=== PATIENT | male | born 1945 | race Caucasian/White ===

== ENCOUNTER 2017-01-31 11:36 | Outpatient (CLI) | payer MEDICARE, BC ==
[2017-01-31 12:26] LABS: Anion Gap 11 mmol/L (10-20); BUN (Urea Nitrogen) 9 mg/dL (8.4-25.7); Calc. Creatinine Clearance 0 mL/min (70-130); Calcium 8.9 mg/dL (7.8-10.44); Carbon Dioxide 28 mmol/L (23-31); Chloride 93 mmol/L (98-107); Estimated GFR-MDRD Greater than 90
[2017-01-31] MEDS ORDERED: Iopamidol 370 76% 100 ML VIAL ONE (15:03)
--- NOTE | 2017-01-31 17:42 | CT ---
CT ABDOMEN WITH AND WITHOUT CONTRAST CT PELVIS WITH AND WITHOUT CONTRAST: (CT UROGRAM) 01/31/2017 HISTORY: A 72-year-old male with N40.1, benign prostatic hyperplasia with lower urinary tract symptoms. Z87.440, history of UTI. R31.29, microscopic hematuria. N20.0, renal calculi. COMPARISON: Noncontrast CT of abdomen and pelvis of 06/02/2011. No other cross-section imaging studies of the abdomen and pelvis. TECHNIQUE: No oral contrast given. IV contrast: Isovue. Pre-contrast, 90-second delayed venous phase, and 4-minute delayed excretory/pelvic resting phase, s cans performed through the entire abdomen and pelvis. Coronal reconstructions of the excretory phase scan. FINDINGS: There is an approximately 2 x 1.5 cm heterogeneously enhancing lesion, with pattern consistent with hepatic hemangioma, in hepatic segment 6, which has not changed in size since the prior CT of 2011. In the posteromedial hepatic segment 5, located approximately 2 cm posterior to the intrahepatic por tion of the IVC, there is a much smaller, approximately 1 x 0.5 cm subtle, faint, moderately hypoden se lesion, which is too small to characterize, but is probably another hepatic hemangioma. Otherwise, the rest of the liver is normal. There are multiple small hypodense lesions in the bilat eral upper and midpole renal parenchyma. Most are too small to characterize, less than 1 cm in size each. The largest is approximately 1.5 cm, exophytically protruding from the posterior cortical anderson rface of the right renal upper pole. These are statistically most likely represent multiple small r enal cysts. There are no renal, ureteral, or bladder calculi. Urinary bladder is distended, and hart s normal, thin fam. There are no prostatic calcifications. There is periprostatic fat stranding suggestive of edema. This makes it difficult to measure the prostate gland. The prostate gland barone s not significantly superiorly displace the base of the urinary bladder. Within the tail of the pancreas, there is a low attenuation lesion which is approximately 1 cm in gr eatest transverse dimension x 2.5 cm anteroposterior x 3 cm craniocaudal. It does not appear to enh ance, and its long axis is almost perpendicular to the long axis of the pancreatic tail. This is un changed since 06/02/2011, and therefore does not appear aggressive. Located approximately 3.5-4 cm to the left of this, more distally in the pancreatic tail, there is a tiny 0.8 cm round hypodense le chula, which is not definitely identified on the prior noncontrast CT. Much more proximally, at the pancreatic body and junction between the pancreatic body and head, there are additional small irregu larly shaped cystic-appearing lesions which were also probably present in 2012. No adrenal mass. Unremarkable spleen. No small bowel dilation. No iliac chain or retroperitoneal lymphadenopathy. It is difficult to evaluate the colon because of lack of visceral fat. IMPRESSION: 1. Periprostatic edema, with indistinct margins of the prostate gland. This could either represent a prostatitis, or the patient may be recently status post prostatic biopsy. Recommend correlation w ith history. 2. Several small hypodense lesions in the bilateral upper and midpole parenchyma, too small to defin itively characterize. At least the majority of them are probably cysts. 3. Multiple small cystic lesions in the pancreas. Some are definitely stable since 06/02/2011, whil e others are difficult to visualize on that previous noncontrast CT. 4. No obvious large neoplasm identified involving the kidneys or urinary bladder. 5. Two small enhancing lesions in the right lobe of the liver. One of them is definitely a benign h epatic hemangioma. The other is too small to characterize, but is also favored to be a hemangioma. POS: [facility]
== END 2017-01-31 11:37 | disposition home or self-care (01) ==
LOC: CT 11:36
PROVIDERS: ATTEND Urology
DX: N40.1 Benign prostatic hyperplasia with lower urinary tract symptoms (principal); R31.29 Other microscopic hematuria; N20.0 Calculus of kidney; E22.9 Hyperfunction of pituitary gland, unspecified; N28.9 Disorder of kidney and ureter, unspecified; K86.2 Cyst of pancreas; D18.09 Hemangioma of other sites; Z87.440 Personal history of urinary (tract) infections
CPT/HCPCS: 36415; 74178; 80048

== ENCOUNTER 2018-05-04 13:16 | Emergency (ER) | payer MEDICARE, BC ==
[2018-05-04 14:03] LABS: #Eosinphils 0.1 thou/uL (0.0-0.7); #Lymphocytes 1.3 thou/uL (1.20-3.40); #Monocytes 0.8 thou/uL (0.11-0.59); #Neutrophils 5.8 thou/uL (1.40-6.50); %Eosinophils 0.6 % (0.0-10.0); %Lymphocytes 16.1 % (21.0-51.0); %Monocytes 10.3 % (0.0-10.0); Hemoglobin 13.9 g/dL (14.0-18.0); Mean Corpuscular HGB CONC 32.2 g/dL (32.0-36.0); Mean Corpuscular Hemoglobin 29.2 pg (27.0-31.0); Mean Corpuscular Volume 90.5 fL (78.0-98.0); Mean Platelet Volume 8.1 fL (7.4-10.4); Platelet Count 165 thou/uL (130-400); RBC Distribution Width 13.2 % (11.5-14.5); Red Blood Cell (RBC) Count 4.76 mill/uL (4.70-6.10)
[2018-05-04 14:35] LABS: ALT (SGPT) 14 U/L (8-55); AST (SGOT) 17 U/L (5-34); Albumin 4.1 g/dL (3.4-4.8); Alkaline Phosphatase 89 U/L (40-150); Anion Gap 14 mmol/L (10-20); BUN (Urea Nitrogen) 13 mg/dL (8.4-25.7); Bilirubin, Total 0.6 mg/dL (0.2-1.2); Calc. Creatinine Clearance 0 mL/min (70-130); Calcium 9.7 mg/dL (7.8-10.44); Carbon Dioxide 24 mmol/L (23-31); Chloride 102 mmol/L (98-107); Estimated GFR-MDRD 67; Glucose 123 mg/dL (83-110); Potassium 4.2 mmol/L (3.5-5.1); Protein, Total 7.1 g/dL (5.8-8.1); Sodium 136 mmol/L (136-145)
[2018-05-04 16:19] LABS: Bilirubin Negative (Negative); Blood, Urine Moderate (Negative); Clarity CLEAR (Clear); Glucose, Urine (Dipstick) Negative (Negative); Leukocyte Trace (Negative); Nitrite Negative (Negative); Protein, Urine (Dipstick) Negative (Neg-Trace); pH, Urine 6.5 (5.0-9.0)
[2018-05-04 16:22] LABS: Bacteria/HPF None Seen HPF (None Seen); Hyaline Casts/LPF 0-3 HYALINE CAST LPF (0-3 Hyaline); Pathc Cast-AUWi Flag 0.14 (0-2.49); RBC/HPF 21-50 HPF (0-3); Squamous Epithelial None Seen HPF (0-3); WBC/HPF 0-3 HPF (0-3)
--- NOTE | 2018-05-04 17:54 | CT ---
CT OF THE HEAD WITHOUT CONTRAST 05/04/18 COMPARISON: 12/09/16 HISTORY: Fall, trauma. TECHNIQUE: Axial CT imaging at 5 mm intervals from vertex through skull base without contrast. FINDINGS: The imaged paranasal sinuses/mastoid air cells are well aerated. There is no displaced calvarial frac ture. There is no intracranial hemorrhage, midline shift or mass effect. There is inferior posterior cerebe llar volume loss, stable. There is posterior occipital/parietal encephalomalacia noted bilaterally, s table as well. There is extensive periventricular, deep and subcortical white matter hypodensity, josh dence of stable small vessel disease. IMPRESSION: Chronic findings as described above. No intracranial hemorrhage or displaced calvarial fracture. POS: [facility]
== END 2018-05-04 19:06 | disposition home or self-care (01) ==
LOC: ERS 13:16
DX: R53.81 Other malaise (principal); R29.6 Repeated falls; G40.909 Epilepsy, unspecified, not intractable, without status epilepticus; F41.9 Anxiety disorder, unspecified; Z79.899 Other long term (current) drug therapy
CPT/HCPCS: 36415; 70450; 80053; 81003; 81015; 85025

== ENCOUNTER 2018-05-08 16:24 | Outpatient (CLI) | payer MEDICARE, BC ==
--- NOTE | 2018-05-08 18:13 | RAD ---
AP VIEW PELVIS: INDICATIONS: Fall with pelvic pain. COMPARISON: None. FINDINGS: No acute fracture or subluxation is evident. There is a moderate amount of retained stool within the visualized colon. No overlying bowel gas. Limited evaluation of the sacrum and coccyx. IMPRESSION: No definite displaced fracture demonstrated. POS: [facility]
--- NOTE | 2018-05-08 18:28 | RAD ---
LUMBAR SPINE TWO VIEWS: INDICATIONS: Fall with back pain. COMPARISON: CT abdomen and pelvis dated 01/31/2017. FINDINGS: Overlying bowel gas limits exam detail. There is a moderate wedge compression abnormality suspected involving L2. Mild wedge compression abnormality is suspected involving L1. These are new from the comparison exam. There is diffuse osteopenia. IMPRESSION: 1. Wedge compression abnormalities involving L1 and L2 are new from a comparison examination from 20 17. A bone scan may be helpful to evaluate the chronicity of the findings. 2. Limitation of examination due to overlying bowel gas. POS: [facility]
== END 2018-05-08 16:25 | disposition home or self-care (01) ==
LOC: BICRAD 16:24
PROVIDERS: ATTEND Nurse Practitioner Acute Care
DX: R29.6 Repeated falls (principal)
CPT/HCPCS: 72100; 72170

== ENCOUNTER 2018-10-12 16:38 | Inpatient (IN) | payer MEDICARE, BC ==
[2018-10-12] MEDS ORDERED: Acetaminophen 500 MG TAB ONE ×2 (16:58→16:59)
[2018-10-12 17:13] LABS: #Basophils 0.1 thou/uL (0.0-0.2); #Lymphocytes 0.8 thou/uL (1.20-3.40); #Monocytes 0.7 thou/uL (0.11-0.59); #Neutrophils 4.6 thou/uL (1.40-6.50); %Basophils 1.6 % (0.0-1.0); %Eosinophils 0.3 % (0.0-10.0); %Lymphocytes 13.1 % (21.0-51.0); %Monocytes 10.9 % (0.0-10.0); %Neutrophils 74.2 % (42.0-75.0); Hemoglobin 14.2 g/dL (14.0-18.0); Mean Corpuscular HGB CONC 32.9 g/dL (32.0-36.0); Mean Corpuscular Hemoglobin 29.1 pg (27.0-31.0); Mean Corpuscular Volume 88.5 fL (78.0-98.0); Platelet Count 184 thou/uL (130-400); RBC Distribution Width 13.2 % (11.5-14.5); Red Blood Cell (RBC) Count 4.87 mill/uL (4.70-6.10); White Blood Cell (WBC) Count 6.2 thou/uL (4.8-10.8)
--- NOTE | 2018-10-12 17:23 | CT ---
Exam: Head CT without contrast HISTORY: Multiple falls. Weakness. Previous strokes. Bilateral lower extremity weakness, starting thi s morning. COMPARISON: 05/04/2018 FINDINGS: Hemorrhage: No intraparenchymal hemorrhage or extra-axial hematoma. Brain parenchyma: Stable malacic and gliotic changes in the posterior midline left and right cerebral lobes. Otherwise, cortical tam-white matter differentiation is preserved. No mass effect or midline shift. Basilar cisterns are patent.Stable white matter hypodensities due to chronic small ves dwayne ischemic change Ventricular system: Ventricles and sulci are patent and symmetric. Calvarium: Intact. Sinuses and mastoid air cells: Adequate aeration. IMPRESSION: No acute intracranial process.
[2018-10-12 17:35] LABS: ALT (SGPT) 14 U/L (8-55); AST (SGOT) 18 U/L (5-34); Albumin 4.2 g/dL (3.4-4.8); Alkaline Phosphatase 85 U/L (40-150); Anion Gap 13 mmol/L (10-20); BUN (Urea Nitrogen) 12 mg/dL (8.4-25.7); Bilirubin, Total 0.4 mg/dL (0.2-1.2); CK (CPK) 94 U/L (30-200); Calc. Creatinine Clearance 0 mL/min (70-130); Calcium 9.4 mg/dL (7.8-10.44); Carbon Dioxide 27 mmol/L (23-31); Chloride 100 mmol/L (98-107); Estimated GFR-MDRD 59; Globulin 2.7 g/dL (2.4-3.5); Glucose 98 mg/dL (83-110); Potassium 4.6 mmol/L (3.5-5.1); Protein, Total 6.9 g/dL (5.8-8.1); Sodium 135 mmol/L (136-145)
--- NOTE | 2018-10-12 17:38 | RAD ---
Exam: Chest one view HISTORY:Sepsis. Multiple falls. Comparison: 12/09/2016 FINDINGS: Cardiac silhouette:Mildly enlarged. Pulmonary vessels: Upper normal Costophrenic angles: Clear LUNGS: Hyperinflation. Chronic changes. Pneumothorax: None Osseous abnormalities: None IMPRESSION: 1. Upper normal pulmonary vasculature. 2. Hyperinflation. Chronic changes.
[2018-10-12 17:58] LABS: Bilirubin Negative (Negative); Blood, Urine Trace (Negative); Clarity Clear (Clear); Glucose, Urine (Dipstick) Normal (Negative); Leukocyte Negative Leu/uL (Negative); Nitrite Negative (Negative); Protein, Urine (Dipstick) Negative (Neg-Trace); Urobilinogen 3 mg/dL (Less than 2); WBC/HPF 0-3 HPF (0-3)
[2018-10-12 17:59] LABS: Bacteria/HPF None Seen HPF (None Seen); Squamous Epithelial 0-3 HPF (0-3)
--- NOTE | 2018-10-12 18:52 | PDOC.FPRHP ---
- History of Present Illness Chief Complaint: Falls History of Present Illness: Mr. Robbins is a pleasant 73yo CM with h/o of hemorrhagic stroke x3 who presents for increase in generalized weakness and falls x4. History is obtained from patient as well as patient's at bedside. reports that patient was at his baseline until eariler today about 1100 when his legs began to shake and he complained of weakness. He then fell from standing to the floor, without head trauma. He was able to be helped up to his walker. He did not experience any LOC, post-ictal state, loss of bladder or bowel control, or focal neurologic deficits after the fall. He does endorse a dull lower back pain since the fall, relieved with Tylenol. He does endorse a 2 day history of cough, congestion, and mild cold-like symptoms. has been experiencing similar illness. He denies any CP, SOB, abdominal pain, n/v, diarrhea. Prior to this episode, his last fall was in April with similar sxs. He also has experienced a UTI about 2 years ago with hospitalization and associated delerium. states that any time he gets a fever or acute illness he becomes acutely weaker until resolution of illness. ED Course: In the ED, he was given 2L NS bolus and 1g Tylenol with improvement of vitals and clinical status. We were then called for further management and admission. - Allergies/Adverse Reactions Allergies Allergy/AdvReac Type Severity Reaction Status Date / Time No Known Allergies Allergy Verified 10/01/15 02:49 - Home Medications Medication Instructions Recorded Confirmed Type Atorvastatin Calcium [Lipitor] 40 mg PO HS #0 tab 10/15/15 10/12/18 Rx Docusate Sodium 100 mg PO DAILY 12/09/16 10/12/18 History Tamsulosin HCl [Flomax] 0.4 mg PO DAILY #30 cap 12/12/16 10/12/18 Rx levETIRAcetam [Keppra] 1,000 mg PO BID #60 tab 12/12/16 10/12/18 Rx Metoprolol Succinate 50 mg PO DAILY 10/13/18 10/13/18 History Potassium Chloride [Klor-Con M10] 10 meq PO BID-WM 10/13/18 10/13/18 History Sertraline HCl 50 mg PO DAILY 10/13/18 10/13/18 History - History PMHx:Skin cancer with excision, OA, h/o of CVA x3 with residual gait disturbances and vision loss, epilepsy PSHx: none FHx: NC Social: Lives at home with family. No EtOH, tob, or illicit drug use. - Review of Systems General: reports: fever/chills. denies: night sweats, fatigue Eyes: reports: vision changes (chronic vision loss 2/2 CVA's), other (baseline decreased vision) ENT: reports: nasal congestion, rhinorrhea Respiratory: reports: cough, congestion. denies: shortness of breath Cardiovascular: denies: chest pain, palpitation, edema Gastrointestinal: reports: constipation (chronic). denies: nausea, vomiting, diarrhea Genitourinary: reports: polyuria (chronic). denies: incontinence, dysuria Skin: denies: rashes, lesions Musculoskeletal: reports: pain (lower back) Neurological: denies: syncope, seizure - Vital signs BP: 103/63 HR: 104 RR: 18 Tmax: 98.3 Pox: 98% on RA Wt: [68] - Physical Exam Constitutional: NAD, awake, alert and oriented, well developed HEENT: normocephalic and atraumatic, PERRLA, EOMI, conjunctiva clear, MMM, other (grossly decreased vision) Neck: supple, FROM, trachea midline Heart: RRR, normal S1/S2, no murmurs/rubs/gallops, pulses present, no edema Lungs: CTAB, good air movement, no rales/rhonchi, no wheezing Abdomen: soft, non-tender, bowel sounds present, no masses/distention Musculoskeletal: normal structure, normal tone, ROM grossly normal, other (5/5 strength throughout) Neurological: no focal deficit, CN II-XII intact, normal sensation, other (no dysdiadokinesia, [id number] normal, [id number] unable to preform due to vision loss.) Skin: no rash/lesions Heme/Lymphatic: no unusual bruising or bleeding Psychiatric: normal mood and affect, good judgment and insight, intact recent and remote memory FMR H&P: Results - Labs Result Diagrams: 10/14/18 05:58 10/14/18 05:58 Lab results: WBC 6.2 thou/uL (4.8-10.8) 10/12/18 16:55 Hgb 14.2 g/dL (14.0-18.0) 10/12/18 16:55 Hct 43.1 % (42.0-52.0) 10/12/18 16:55 MCV 88.5 fL (78.0-98.0) 10/12/18 16:55 Plt Count 184 thou/uL (130-400) 10/12/18 16:55 Neutrophils % 74.2 % (42.0-75.0) 10/12/18 16:55 Sodium 135 mmol/L (136-145) L 10/12/18 16:55 Potassium 4.6 mmol/L (3.5-5.1) 10/12/18 16:55 Chloride 100 mmol/L (98-107) 10/12/18 16:55 Carbon Dioxide 27 mmol/L (23-31) 10/12/18 16:55 BUN 12 mg/dL (8.4-25.7) 10/12/18 16:55 Creatinine 1.20 mg/dL (0.7-1.3) 10/12/18 16:55 Glucose 98 mg/dL (83-110) 10/12/18 16:55 Lactic Acid 1.5 mmol/L (0.5-2.2) 10/12/18 16:55 Calcium 9.4 mg/dL (7.8-10.44) 10/12/18 16:55 Total Bilirubin 0.4 mg/dL (0.2-1.2) 10/12/18 16:55 AST 18 U/L (5-34) 10/12/18 16:55 ALT 14 U/L (8-55) 10/12/18 16:55 Alkaline Phosphatase 85 U/L (40-150) 10/12/18 16:55 Creatine Kinase 94 U/L (30-200) 10/12/18 16:55 B-Natriuretic Peptide 310.1 pg/mL (0-100) H 10/12/18 16:55 Serum Total Protein 6.9 g/dL (5.8-8.1) 10/12/18 16:55 Albumin 4.2 g/dL (3.4-4.8) 10/12/18 16:55 Urine Ketones Negative mg/dL (Negative) 10/12/18 17:45 Urine Blood Trace (Negative) A 10/12/18 17:45 Urine Nitrite Negative (Negative) 10/12/18 17:45 Ur Leukocyte Esterase Negative Johnathan/uL (Negative) 10/12/18 17:45 Urine RBC 7-10 HPF (0-3) A 10/12/18 17:45 Urine WBC 0-3 HPF (0-3) 10/12/18 17:45 Ur Squamous Epith Cells 0-3 HPF (0-3) 10/12/18 17:45 Urine Bacteria None Seen HPF (None Seen) 10/12/18 17:45 - EKG Interpretation EKG: Sinus tachy, no ST or T wave changes, normal axis. - Radiology Interpretation Chest x-ray Status: image reviewed by me, report reviewed by me (No acute cardiopulmonary process. Mild hyperinflation. Increased pulmonary vascular markings.) CT scan - head Status: report reviewed by me (No acute intracranial process.) FMR H&P: A/P - Problem List (1) Falls Current Visit: Yes Status: Acute Code(s): W19.XXXA - UNSPECIFIED FALL, INITIAL ENCOUNTER (2) Generalized weakness Current Visit: Yes Status: Acute Code(s): R53.1 - WEAKNESS (3) Acute upper respiratory infection Current Visit: Yes Status: Acute Code(s): J06.9 - ACUTE UPPER RESPIRATORY INFECTION, UNSPECIFIED (4) Seizure disorder Current Visit: No Status: Chronic Code(s): G40.909 - EPILEPSY, UNSP, NOT INTRACTABLE, WITHOUT STATUS EPILEPTICUS (5) History of cerebrovascular accident Current Visit: No Status: Chronic Code(s): Z86.73 - PRSNL HX OF TIA (TIA), AND CEREB INFRC W/O RESID DEFICITS - Plan Mr. Robbins is a 73 yo WM with h/o hemorrhagic CVA x3 who presents for increased generalized weakness and falls x4 over 1 day duration. 1. Falls 2/2 generalized weakness - suspected dehydration vs URI - Head CT WNL, CXR WNL - Tmax of 99.8 in ED, s/p 2L NS with normalization of BP. - BMP, CBC, and Lactic acid WNL; will check Mg and Phos - Will order TSH and Vit D - U/A clean, ED UCx Pending - PT/OT consulted, appreciate recs 2. URI - sxs of 2 day duration, afebrile in ED, UA clean, no acute s/s of other infection. Vitals stable. - BCx Pending - Will check Procalcitonin and viral respiratory panel - Will monitor for s/s of infection 3. H/O CVA - CT normal, no acute neurologic findings, Neuro exam unremarkable - Will place on fall precautions and bed assist, and will monitor neurologic status 4. H/O seizures - Will continue home Keppra. Will check Keppra level. - No history consistent with recent seizure. Will continue to monitor. VTE: SCDs Diet: Regular Code: Full - discussed with patient and at bedside Disposition/LOS: Pending workup and clinical improvement. Anticipate observation status with hospitalization <48 hours. FMR H&P: Upper Level - Pertinent history 73 y/o M PMHx CVA, epilepsy, brain bleeds presents because around 11am this morning he started falling. His was concerned because he seemed to be out of focus and didn't have control of his hands and feet. He was alert the whole time. He fell 4 times today and it was as though his legs gave out. He did not trip. Did not hit his head. His brought him in and he was found to have a temp of 99.7. His has had a cold and now he has a cold. He has had a dry cough, sneezing, rhinorrhea for the past 2-3 days. denies noticing any focal weakness, slurred speech, chest pain, SOB. His back hurts because he fell a couple of times today. During the falls his put chairs under him to catch him. Denies LOC. He walks with a walker at baseline. He cannot see well at baseline as a result of a stroke. - Pertinent findings Vitals: BP 103/63, HR 90, RR 20, O2 97% on RA, Temp 99.7 PE: Gen - alert, oriented x3, NAD HEENT - mildy dry mucous membranes, clear nasal discharge, EOMI, no scleral icterus CV - RRR, no murmurs Resp - CTAB, no wheezes Abd - soft, NTTP Neuro - AOx3, CN II-XII intact, 5/5 strength in all 4 extremities, sensation grossly intact, cerebellum intact with no dysdiadochokinesia, heel to ott intact, sharp, rigid movements Labs: WBC 6.2, Hb 14.3, BUN 12, Cr 1.2, GFR 59, Lactic Acid 1.5, BNP 310, Trop < 0.010, Flu negative, Urinalysis - Trace blood CXR: chronic hyperinflation, no acute process CT head: no acute process - Plan Date/Time: 10/12/18 2626 I, Jimena Ashford MD, PGY-3, have evaluated this patient and agree with findings/ plan as outlined by international sales manager resident. Pertinent changes/additions are listed here. 1. Generalized Weakness Pt presented after 4 falls today due to generalized weakness. CT brain normal. He has been suffering from a viral URI and was found to have a temp of 100.0. At the time of our exam he was at his baseline strength. Head CT negative. WBC count normal, Lactic acid and trop normal. Flu negative. Unknown cause, but suspect due to mild dehydration and viral URI. -Obs on medical -PT/OT consult -Check Mag, Phos -Check procalcitonin -Check Viral Resp panel -f/u on blood cultures, but will not start abx as suspect viral source. If procalcitonin comes back elevated then will re-consider abx 2. Mild Dehydration Pt initially was mildly hypotensive and tachycardic with dry mucous membranes. s/p 2L NS and his vital signs have improved. -LR @ 100 -Encourage PO intake 3. h/o CVA Do not suspect CVA at this time as brain CT negative and no new focal deficits. It pt status deteriorates then will consider Head MRI -Will restart home atorvastatin 4. Epilepsy Do not suspect seizure -Check keppra level -Restart home keppra Dispo: Obs on medical Code Status: Full VTE ppx: SCD's Addendum - Attending - Attending Attestation Date/Time: 10/14/18 2025 I personally evaluated the patient and discussed the management with Dr. Josee Whitt on 10/12/2018 I agree with the History, Examination, Assessment and Plan documented above with any addition or exceptions noted below- 73yo CM with h/o of hemorrhagic stroke x3, OA, seizure d/o secondary to CVA who presents with generalized weakness and falls x4. History is obtained from patient as well as patient's at bedside. reports that patient was at his baseline until earlier today when his legs began to shake and he complained of weakness. He then fell from standing to the floor. Did not hit his head or have LOC. He was able to be helped up to his walker. Denied any loss of bladder or bowel control, or focal neurologic deficits after the fall. He does endorse a dull lower back pain since the fall, relieved with Tylenol. He does endorse a 2 day history of cough, congestion, and mild cold-like symptoms. has been experiencing similar illness. He denies any CP, SOB, abdominal pain, n/v, diarrhea. PMH/PSH/ Meds/All reviewed and agree with resident's documentation. Afebrile VSS Exam repeated by me and agree with resident's findings. Labs: WBC=6.2, H/H=14.2/43.1 , Iam=054, Ss=559, K=4.6, Me=686, CO2=27, BUN/Cr=12/1.2, Gluc=98, AST/ALT=18/14 , Lactic acid=1.5, Trop<0.010 A/P: 1) Generalized weakness with falls- possibly secondary to mild dehydration- pt reports feeling better since receiving IVF. Continue to monitor. Plan to ambulate in AM with PT for further evaluation. Will check TSH, procalcitonin. 2) Mild dehydration- continue IVF
[2018-10-12] MEDS ORDERED: HYDROcodone/Acetaminophen 5/325 mg Tablet PO PRN ×2 (19:47)
[2018-10-12] MEDS ORDERED: Sodium Chloride 0.9% 1,000 ML IV SCH (19:47)
[2018-10-12] MEDS ORDERED: Acetaminophen 325 MG TAB PO PRN (19:47)
[2018-10-12] MEDS ORDERED: Ondansetron ODT 4 MG TAB SL PRN (19:47)
[2018-10-12] MEDS ORDERED: Ondansetron PF 4 MG/2 ML Vial IVP PRN (19:47)
[2018-10-12 20:50] LABS: Magnesium 1.7 mg/dL (1.6-2.6)
[2018-10-12 21:11] LABS: Thyroid Stimulating Hormone 1.9366 uIU/mL (0.35-4.94)
[2018-10-12] MEDS: Lactated Ringer's 1,000 ML IV SCH (21:12)
[2018-10-12 21:34] LABS: Troponin I Less than 0.010 ng/mL (< 0.028)
[2018-10-12] MEDS ORDERED: Prevnar 13-Val Conj/PF 0.5 ML SYRINGE IM ONE (22:00)
[2018-10-13 00:11] LABS: Troponin I Less than 0.010 ng/mL (< 0.028)
[2018-10-13 01:24] VITALS: BMI 22.9
--- NOTE | 2018-10-13 05:01 | PDOC.EVN ---
Event Note - Event Note Event Note: Paged patient had HR spikes from 80s to 140s with irregular rhythm. Hemodynamically stable with bp 110s/60s. Ordered state 12-lead EKG which demonstrated Afib. Pt had no complaints, CP or SOB. BP 117/68, HR 90s. Patient was then transferred to tele floor. Trop, BMP, Mg, Phos, and D-dimer were ordered. Pt has no known previous history of Afib. Will monitor patient on tele floor and provide further management.
[2018-10-13 06:03] LABS: Anion Gap 8 mmol/L (10-20); BUN (Urea Nitrogen) 10 mg/dL (8.4-25.7); Calc. Creatinine Clearance 76 mL/min (70-130); Calcium 8.5 mg/dL (7.8-10.44); Carbon Dioxide 29 mmol/L (23-31); Chloride 105 mmol/L (98-107); Estimated GFR-MDRD Greater than 90; Glucose 92 mg/dL (83-110); Magnesium 1.8 mg/dL (1.6-2.6); Phosphorus 2.4 mg/dL (2.3-4.7); Potassium 4.1 mmol/L (3.5-5.1); Sodium 138 mmol/L (136-145)
[2018-10-13] MEDS: Lactated Ringer's 1,000 ML IV SCH ×3 (06:24→16:42)
--- NOTE | 2018-10-13 07:00 | PDOC.FM ---
- Subjective Subjective: Mr. Robbins had no complaints during the interview. He denied symptoms when he converted into A-fib. He states he has recent falls. Unable to tease out if falls are due to weakness or poor field of vision. He denied LOC, incontinence with falls. He has been experiencing upper respiratory symptoms for 3 days and states his has similar symptoms. He denied fever, chills, SOB, chest pain, LE edema, abdominal pain, diarrhea, urinary symptoms. 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 He continues with falls and this does not distress her as needing assistance with care. - Objective Vital Signs & Weight: Vital Signs (12 hours) Temp Pulse Resp BP Pulse Ox 10/13/18 06:25 99 10/13/18 05:31 98.3 F 104 H 20 141/82 H 99 10/13/18 04:00 97.8 F 101 H 18 108/74 96 10/13/18 00:12 98.4 F 89 16 112/75 96 10/12/18 20:12 98.6 F 94 16 136/76 96 Weight Weight 68.674 kg I&O: 10/11/18 10/12/18 10/13/18 06:59 06:59 06:59 Intake Total 0 Output Total 150 Balance -150 Result Diagrams: 10/12/18 16:55 10/13/18 05:37 Phys Exam - Physical Examination Constitutional: NAD HEENT: PERRLA, moist MMs Neck: no nodes, no JVD Respiratory: no wheezing, no rales, no rhonchi, clear to auscultation bilateral Cardiovascular: no significant murmur, irregular Gastrointestinal: soft, non-tender, no distention Musculoskeletal: no edema, pulses present Neurological: non-focal, normal sensation, moves all 4 limbs Normal CN III-XII; II not intact in most kumari Psychiatric: A&O x 3 Skin: no rash Dx/Plan (1) Atrial fibrillation Code(s): I48.91 - UNSPECIFIED ATRIAL FIBRILLATION Status: Acute (2) Acute upper respiratory infection Code(s): J06.9 - ACUTE UPPER RESPIRATORY INFECTION, UNSPECIFIED Status: Acute (3) Falls Code(s): W19.XXXA - UNSPECIFIED FALL, INITIAL ENCOUNTER Status: Acute (4) Generalized weakness Code(s): R53.1 - WEAKNESS Status: Acute (5) Intracranial hemorrhage Code(s): I62.9 - NONTRAUMATIC INTRACRANIAL HEMORRHAGE, UNSPECIFIED Status: Acute (6) BPH (benign prostatic hyperplasia) Code(s): N40.0 - BENIGN PROSTATIC HYPERPLASIA WITHOUT LOWER URINRY TRACT SYMP Status: Acute (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 Hx of 3 hemorrhagic strokes so will not anticoag at this time. TSH WNL, Electrolytes WNL - cont carvedilol 12.5 mg bid - consider dilt drip if rate increases - consult cards; appreciate rec's - echo pending - unable to anticoag due to hx of cerebrovascular hemorrhage. Last hemorrhage 4 yrs ago. He is unsure the etiology of hemorrhage. Neurologist was Dr. Hernandez. # Falls 2/2 generalized weakness - suspected dehydration vs URI vs arrhythmia vs neurogenic vs visual field defect - Head CT WNL, CXR WNL - BMP, CBC, TSH, Mg, Phosph and Lactic acid WNL - U/A clean - PT/OT consulted, appreciate recs - Palliative consulted, Case management consulted, appreciate recs - further educate pt and on home safety/well-being and if further intervention is needed for proper home care with recent falls # Vit D Def - Vit D 11.3; continue Vit D3 2. URI - sxs of 2 day duration, afebrile in ED, UA clean, no acute s/s of other infection. Vitals stable. - BCx Pending - Procal WNL;neg influenza; pending viral respiratory panel - Will monitor for s/s of infection 3. H/O CVA - CT normal, no acute neurologic findings, Neuro exam unremarkable - Will place on fall precautions and bed assist, and will monitor neurologic status 4. H/O lifelong seizures - Will continue home Keppra. Will check Keppra level. - No history consistent with recent seizure. Will continue to monitor. VTE: SCDs Diet: Regular Code: Full - discussed with patient and at bedside Disposition/LOS: Pending workup and clinical improvement. Anticipate observation status with hospitalization <48 hours.
[2018-10-13] MEDS ORDERED: Carvedilol 25 MG TAB PO SCH (08:00)
[2018-10-13] MEDS: levETIRAcetam 500 MG TAB PO SCH ×2 (08:41→21:00)
[2018-10-13] MEDS: Tamsulosin HCl 0.4 MG CAP PO SCH (08:42)
[2018-10-13] MEDS: Docusate 100 MG CAP PO SCH (08:42)
--- NOTE | 2018-10-13 11:12 | PRG ---
DATE OF SERVICE: 10/13/2018 SUBJECTIVE: Mr. Robbins is a 73-year-old man, who was admitted yesterday after sustaining multiple falls at home. In the meantime, he has developed new onset atrial fibrillation initially with rapid ventricular response. He was placed on Coreg and it has now slowed his rate into the 90s to 100s. We have consulted Cardiology. We have ordered an echocardiogram. I am also very concerned about Mr. Robbins's home conditions. He has a very loving and caring , but she must care for him herself. He has sustained multiple falls in the last several months while at home. He has had previous strokes in the past and is legally blind. I have asked that we have case management discussed with possibility of at least assisted living. We will also get Physical Therapy involved. Job ID: [id number]
--- NOTE | 2018-10-13 12:38 | CON ---
DATE OF CONSULTATION: HISTORY OF PRESENT ILLNESS: The patient is a 73-year-old gentleman with a history of cerebrovascular accident, who presents with a rapid irregular heart rhythm. The patient has suffered 3 cerebrovascular accidents, each have apparently been hemorrhagic. The patient also has a history of seizure disorder and multiple falls. The patient was in his usual state of health when he started developing fevers and chills. He started feeling extremely weak. He presented once again to the emergency room. He was noted to be in a rapid irregular heart rhythm. The patient denied having any chest pain or dyspnea. PAST MEDICAL HISTORY: Significant for, 1. Cerebrovascular accident. 2. Hypertension. 3. Seizure disorder. 4. Skin carcinoma. PAST SURGICAL HISTORY: He has had surgery for skin cancer. FAMILY HISTORY: Positive family history of coronary artery disease. SOCIAL HISTORY: Nonsmoker. ALLERGIES: NO KNOWN DRUG ALLERGIES. MEDICATIONS: Include, 1. Sertraline 50 daily. 2. KCl 10 daily. 3. Metoprolol 50 XL daily. 4. Colace 100 daily. 5. Lipitor 40 at bedtime. 6. Keppra 1000 b.i.d. 7. Flomax 0.4 daily. REVIEW OF SYSTEMS: Ten-point system otherwise unremarkable. PHYSICAL EXAMINATION: GENERAL: This is a thin gentleman, in no acute distress. VITAL SIGNS: Blood pressure 128/83. NECK: No jugular venous distension. LUNGS: Clear to auscultation. HEART: Irregular rate and rhythm. Normal S1 and S2. ABDOMEN: Nondistended. EXTREMITIES: Show no edema. VASCULAR: Radial pulses are 2+. LABORATORY DATA: White blood cell count 6.4, hemoglobin 14.2, hematocrit 43.1, platelets 184. Sodium 138, potassium 4.1, chloride 105, bicarbonate 29, BUN 10, and creatinine 0.82. Troponin less than 0.01. IMAGING STUDIES: His EKG revealed atrial fibrillation, otherwise normal ECG. IMPRESSION: 1. New onset atrial fibrillation. 2. History of hemorrhagic cerebrovascular accident. 3. History of multiple falls. 4. Seizure disorder. This gentleman presents with new onset atrial fibrillation. He is asymptomatic. His heart rate is elevated. We will start with the history of multiple falls. We will add digoxin to try to control the patient's heart rate. We will check the patient's echocardiogram and follow this patient with you through his hospitalization. Job ID: [id number]
[2018-10-13] MEDS: Digoxin 0.5 MG/2 ML AMP SLOW IVP SCH ×2 (12:57→14:52)
[2018-10-13] MEDS ORDERED: Digoxin 0.25 MG TAB PO SCH (16:00)
[2018-10-13] MEDS ORDERED: Diltiazem 125 MG in Sodium Chloride 0.9% 100 ML IVPB SCH (16:30)
[2018-10-13] MEDS: Diltiazem HCl 125 MG, Admixture Fee 1 EACH in Sodium Chloride 0.9% 100 ML IVPB SCH (17:01)
[2018-10-13] MEDS: Acetaminophen 325 MG TAB PO PRN (21:00)
[2018-10-13] MEDS: Atorvastatin Calcium 40 MG TAB PO SCH (21:00)
--- NOTE | 2018-10-14 05:46 | PDOC.FM ---
- Subjective Subjective: Mr. Robbins is doing well today. He denies fever, chills, SOB, chest pain, palpitations, LE edema, lightheadedness. He endorsed cough and rhinorrhea. Overnight, tele stated he became rate controlled after adminstration of dilt drip at 10 mls/hr. - Objective Vital Signs & Weight: Vital Signs (12 hours) Temp Pulse Resp BP Pulse Ox 10/14/18 04:10 98.8 F 72 20 138/66 92 L 10/14/18 00:00 98.8 F 92 18 106/59 L 10/13/18 20:00 95 Weight Weight 68.674 kg I&O: 10/12/18 10/13/18 10/14/18 06:59 06:59 06:59 Intake Total 0 1070 Output Total 150 1675 Balance -150 -605 Result Diagrams: 10/12/18 16:55 10/13/18 05:37 Radiology: Echo: EF 60-65%, mild Left and Right Atrial Dilation, mild mitral/tricuspid regurg Phys Exam - Physical Examination Constitutional: NAD HEENT: PERRLA, moist MMs, oral pharynx no lesions white sclera, no injected conjunctiva Neck: no JVD, full ROM Respiratory: no wheezing, no rales, no rhonchi, clear to auscultation bilateral Cardiovascular: no significant murmur, irregular Gastrointestinal: soft, no distention, positive bowel sounds Musculoskeletal: no edema, pulses present Psychiatric: A&O x 3 Dx/Plan (1) Atrial fibrillation Code(s): I48.91 - UNSPECIFIED ATRIAL FIBRILLATION Status: Acute (2) Acute upper respiratory infection Code(s): J06.9 - ACUTE UPPER RESPIRATORY INFECTION, UNSPECIFIED Status: Acute (3) Falls Code(s): W19.XXXA - UNSPECIFIED FALL, INITIAL ENCOUNTER Status: Acute (4) Generalized weakness Code(s): R53.1 - WEAKNESS Status: Acute (5) Intracranial hemorrhage Code(s): I62.9 - NONTRAUMATIC INTRACRANIAL HEMORRHAGE, UNSPECIFIED Status: Acute (6) BPH (benign prostatic hyperplasia) Code(s): N40.0 - BENIGN PROSTATIC HYPERPLASIA WITHOUT LOWER URINRY TRACT SYMP Status: Acute (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 Hx of 3 hemorrhagic strokes so will not anticoag at this time. TSH WNL, Electrolytes WNL. Echo revealed EF 60-65%. Dilt drip 10 mls/hr converted to normal rate with continue a-fib. Blood pressure stable. - consult cards - D/C coreg, started digoxin and metoprolol; remained w/o rate control so placed on dilt drip; appreciate rec's - Consider converting to PO dilt drip - unable to anticoag due to hx of cerebrovascular hemorrhage. Last hemorrhage 4 yrs ago. He is unsure the etiology of hemorrhage. Neurologist was Dr. Hernandez. # Falls 2/2 generalized weakness Suspected dehydration vs URI vs arrhythmia vs neurogenic vs visual field defect Head CT WNL, CXR WNL, BMP, CBC, TSH, Mg, Phosph, Lactic acid WNL, U/A clean - PT/OT consulted, appreciate recs - Palliative consulted, Case management consulted, appreciate recs - at the time pt and feel need for HH upon discharge # Vit D Def Pt is high risk for fall fracture. This could be detrimental to pt's health if he were to sustain a fracture or brain bleed. - Vit D 11.3; continue Vit D3 2. URI Symptoms of 2 day duration, afebrile in ED, UA clean, no acute s/s of other infection. Vitals stable. BCx neg. Influenza/Resp Panel neg. Procal WNL - Will monitor 3. H/O CVA CT normal, no acute neurologic findings, Neuro exam unremarkable - Will place on fall precautions and bed assist, and will monitor neurologic status 4. H/O lifelong seizures Will continue home Keppra. Keppra levels WNL - No history consistent with recent seizure. Will continue to monitor. VTE: SCDs Diet: Regular Code: Full - discussed with patient and at bedside Disposition/LOS: New onset a-fib requiring dilt drip will prolong stay; waiting on cards recommendation and approval HH as outpt
[2018-10-14] MEDS: Diltiazem HCl 125 MG, Admixture Fee 1 EACH in Sodium Chloride 0.9% 100 ML IVPB SCH (06:03)
[2018-10-14 07:01] LABS: Anion Gap 9 mmol/L (10-20); BUN (Urea Nitrogen) 8 mg/dL (8.4-25.7); Calc. Creatinine Clearance 79 mL/min (70-130); Calcium 9.1 mg/dL (7.8-10.44); Carbon Dioxide 28 mmol/L (23-31); Chloride 103 mmol/L (98-107); Estimated GFR-MDRD Greater than 90; Glucose 95 mg/dL (83-110); Sodium 136 mmol/L (136-145)
[2018-10-14 07:38] LABS: Band 7 % (5-11); Eosinophils 2 % (0-10); Lymphocytes 29 % (21-51); MDiff Complete? YES; Mean Corpuscular HGB CONC 32.4 g/dL (32.0-36.0); Mean Corpuscular Hemoglobin 28.8 pg (27.0-31.0); Mean Corpuscular Volume 88.9 fL (78.0-98.0); Mean Platelet Volume 8.6 fL (7.4-10.4); Monocytes 9 % (0-10); Neutrophil 53 % (42-75); Platelet Count 141 thou/uL (130-400); Platelet Morphology Comment Appears Decreased; RBC Distribution Width 13.2 % (11.5-14.5)
[2018-10-14] MEDS: levETIRAcetam 500 MG TAB PO SCH ×2 (09:08→21:51)
[2018-10-14] MEDS: Tamsulosin HCl 0.4 MG CAP PO SCH (09:08)
[2018-10-14] MEDS: Digoxin 0.25 MG TAB PO SCH (09:08)
[2018-10-14] MEDS: Docusate 100 MG CAP PO SCH (09:08)
--- NOTE | 2018-10-14 11:34 | PRG ---
DATE OF SERVICE: 10/14/2018 Mr. Robbins is looking and feeling well this morning. He is still on a diltiazem drip for his atrial fibrillation. He was seen in consultation by the Cardiology Service and we appreciate their input. They have recommended switching him to metoprolol and consider using digoxin. In the event, he remains on his diltiazem drip and we will continue to monitor him. At this time, he and his do not desire anything beyond home health care. Job ID: [id number]
--- NOTE | 2018-10-14 20:40 | EKG ---
Test Reason : Blood Pressure : / mmHG Vent. Rate : 122 BPM Atrial Rate : 122 BPM P-R Int : 000 ms QRS Dur : 136 ms QT Int : 220 ms P-R-T Axes : 063 -12 013 degrees QTc Int : 314 ms Sinus tachycardia Non-specific intra-ventricular conduction block No STEMI Abnormal ECG Confirmed by PETER CAVANAUGH, ARAMIS Lea ([id number]), graphic editor KEYLA JIMENEZ ([id number]) on 10/14/2018 8:40:36 PM Referred By: Confirmed By:ARAMIS GREEN MD
[2018-10-14] MEDS: Acetaminophen 325 MG TAB PO PRN (21:51)
[2018-10-14] MEDS: Atorvastatin Calcium 40 MG TAB PO SCH (21:54)
--- NOTE | 2018-10-15 06:17 | PDOC.FM ---
- Subjective Subjective: Mr. Robbins has no complaints today. He states he has been feeling cold and is unsure if it is chills. He had a temp of 99.8 overnight. He remains with intermittent cough. - Objective Vital Signs & Weight: Vital Signs (12 hours) Temp Pulse Resp BP Pulse Ox 10/15/18 04:15 98.3 F 86 13 125/70 94 L 10/14/18 21:45 99.8 F H 69 18 109/63 94 L Weight Weight 68.719 kg I&O: 10/13/18 10/14/18 10/15/18 06:59 06:59 06:59 Intake Total 0 1165.0 1230 Output Total 150 2075 1225 Balance -150 -910.0 5 Result Diagrams: 10/15/18 06:01 10/15/18 06:01 Phys Exam - Physical Examination Constitutional: NAD HEENT: PERRLA, moist MMs Neck: no JVD Respiratory: no wheezing, no rales, no rhonchi, clear to auscultation bilateral Cardiovascular: no significant murmur, irregular Gastrointestinal: soft, non-tender, positive bowel sounds Musculoskeletal: no edema, pulses present Psychiatric: A&O x 3 Dx/Plan (1) Atrial fibrillation Code(s): I48.91 - UNSPECIFIED ATRIAL FIBRILLATION Status: Acute (2) Acute upper respiratory infection Code(s): J06.9 - ACUTE UPPER RESPIRATORY INFECTION, UNSPECIFIED Status: Acute (3) Falls Code(s): W19.XXXA - UNSPECIFIED FALL, INITIAL ENCOUNTER Status: Acute (4) Generalized weakness Code(s): R53.1 - WEAKNESS Status: Acute (5) Intracranial hemorrhage Code(s): I62.9 - NONTRAUMATIC INTRACRANIAL HEMORRHAGE, UNSPECIFIED Status: Acute (6) BPH (benign prostatic hyperplasia) Code(s): N40.0 - BENIGN PROSTATIC HYPERPLASIA WITHOUT LOWER URINRY TRACT SYMP Status: Acute (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 Hx of 3 hemorrhagic strokes so will not anticoag at this time. TSH WNL, Electrolytes WNL. Echo revealed EF 60-65%. Dilt PO started in conjunction w/ Dilt drip 5 mls/hr - remains normal rate with continue a-fib. Blood pressure stable. - consult cards - D/C coreg, started digoxin and metoprolol; remained w/o rate control so placed on dilt drip beginning conversion to PO; appreciate rec's - unable to anticoag due to hx of cerebrovascular hemorrhage. Last hemorrhage 4 yrs ago. He is unsure the etiology of hemorrhage. Neurologist was Dr. Hernandez. # Falls 2/2 generalized weakness Suspected dehydration vs URI vs arrhythmia vs neurogenic vs visual field defect Head CT WNL, CXR WNL, BMP, CBC, TSH, Mg, Phosph, Lactic acid WNL, U/A clean - PT/OT consulted, appreciate recs - Palliative consulted, Case management consulted, appreciate recs - at the time pt and feel need for HH upon discharge # URI Symptoms of 2 day duration, afebrile in ED, UA clean, no acute s/s of other infection. Vitals stable. BCx neg. Influenza/Resp Panel neg. Procal WNL - Pt's temp tiago to 99.8; monitor # Vit D Def Pt is high risk for fall fracture. This could be detrimental to pt's health if he were to sustain a fracture or brain bleed. - Vit D 11.3; continue Vit D3 # H/O CVA CT normal, no acute neurologic findings, Neuro exam unremarkable - Will place on fall precautions and bed assist, and will monitor neurologic status # H/O lifelong seizures Will continue home Keppra. Keppra levels WNL - No history consistent with recent seizure. Will continue to monitor. VTE: SCDs Diet: Regular Code: Full - discussed with patient and at bedside Disposition/LOS: New onset a-fib requiring dilt drip will prolong stay; waiting on cards recommendation and approval HH as outpt
[2018-10-15 06:28] LABS: #Basophils 0.1 thou/uL (0.0-0.2); #Eosinphils 0.1 thou/uL (0.0-0.7); #Lymphocytes 1.3 thou/uL (1.20-3.40); #Monocytes 0.8 thou/uL (0.11-0.59); %Eosinophils 1.8 % (0.0-10.0); %Lymphocytes 24.8 % (21.0-51.0); %Monocytes 14.9 % (0.0-10.0); %Neutrophils 57.4 % (42.0-75.0); Hemoglobin 13.5 g/dL (14.0-18.0); Mean Corpuscular HGB CONC 32.6 g/dL (32.0-36.0); Mean Corpuscular Volume 89.1 fL (78.0-98.0); Platelet Count 148 thou/uL (130-400); Red Blood Cell (RBC) Count 4.66 mill/uL (4.70-6.10); White Blood Cell (WBC) Count 5.2 thou/uL (4.8-10.8)
[2018-10-15 06:37] LABS: Anion Gap 10 mmol/L (10-20); BUN (Urea Nitrogen) 8 mg/dL (8.4-25.7); Calc. Creatinine Clearance 81 mL/min (70-130); Calcium 8.7 mg/dL (7.8-10.44); Carbon Dioxide 28 mmol/L (23-31); Chloride 100 mmol/L (98-107); Estimated GFR-MDRD Greater than 90; Glucose 93 mg/dL (83-110); Potassium 3.9 mmol/L (3.5-5.1); Sodium 134 mmol/L (136-145)
[2018-10-15] MEDS: levETIRAcetam 500 MG TAB PO SCH ×2 (08:52→19:59)
[2018-10-15] MEDS: Tamsulosin HCl 0.4 MG CAP PO SCH (08:53)
[2018-10-15] MEDS: Docusate 100 MG CAP PO SCH (08:53)
[2018-10-15] MEDS: Digoxin 0.25 MG TAB PO SCH (08:53)
[2018-10-15] MEDS ORDERED: ISOVUE-370 76%-LOCM 1 ML ONE (12:39)
--- NOTE | 2018-10-15 12:52 | PRG ---
DATE OF SERVICE: Mr. Robbins is sitting quietly in bed, in no distress. He is in atrial fibrillation with controlled ventricular response. He is still on a low dose diltiazem drip, but we are transitioning him to p.o. diltiazem in anticipation of discharge in a day or two. Job ID: [id number]
--- NOTE | 2018-10-15 15:48 | PDOC.EVN ---
Event Note - Event Note Event Note: Resident team notified of a fall/weakness requiring pt to be assisted to the ground on ambulation to bathroom. He states he his legs became weak. He states this weakness is similar to the falls/weakness he experienced at home. He denied any pain. Tele strip was assessed and he displayed a run of A-Fib w RVR that resolved with rest. Will speak with cardiology about event and assess whether treatment is warranted. He has an elevated D-Dimer at 0.9 from 0.3 on 10/13. Had a CXR to evaluate for etiology of decreasing oxygen saturation but cancelled due to elevated D-Dimer. Will order CTA Chest instead.
--- NOTE | 2018-10-15 18:28 | CT ---
Exam: CT angiogram of the chest HISTORY: Shortness of breath. Elevated d-dimer. COMPARISON: None TECHNIQUE: CT angiogram of the chest is performed in the axial plane. Three-dimensional reformatted i mages are submitted for interpretation FINDINGS: Mediastinum: No mass, lymphadenopathy or hematoma. HEART: Normal size. No significant pericardial fluid. Aorta: Suboptimal evaluation due to timing of bolus. No obvious dilatation or periaortic fat strandin g Upper solid abdominal viscera: No abnormality enhancement. Trachea and central bronchi: Patent Pleural spaces: No effusion Lung parenchyma: Minimal dependent atelectatic changes. No masses or consolidation. 6 mm bleb in the left upper lobe. Pneumothorax: None Osseous structures: No lytic or blastic lesions. Hemangioma in the left aspect of the T12 vertebral b gagan. Pulmonary arteries: Adequate contrast opacification pulmonary arterial system to the level of segment al arteries. No filling defect to suggest pulmonary embolism IMPRESSION: 1. No evidence of pulmonary artery embolism to the level of the segmental arteries.
[2018-10-15] MEDS: Atorvastatin Calcium 40 MG TAB PO SCH (19:59)
--- NOTE | 2018-10-16 05:55 | PDOC.FM ---
- Subjective Subjective: Pt is doing well with no concerns or complaints this morning. Overnight he did complain of urinary frequency with low volume output. Pt was straight-cathed with 250 output. He did not experience any runs of afib with RVR on tele but has been in afib most of the night. He was transitioned from dilt gtt to PO yesterday. He currently denies any CP, SOB, n/v, diarrhea, fever/chills, abd pain, constipation, or current urinary sxs. - Objective MAR Reviewed: Yes Vital Signs & Weight: Vital Signs (12 hours) Temp Pulse Resp BP Pulse Ox 10/16/18 03:02 98.1 F 70 19 132/76 94 L 10/15/18 19:55 98.7 F 73 18 106/56 L 96 Weight Weight 69.031 kg I&O: 10/14/18 10/15/18 10/16/18 06:59 06:59 06:59 Intake Total 1165.0 1230 720 Output Total 2075 1225 400 Balance -910.0 5 320 Result Diagrams: 10/16/18 05:07 10/16/18 05:07 EKG Reviewed by me: Yes (Afib with rate in 80s-100s oon Tele) Phys Exam - Physical Examination Constitutional: NAD HEENT: PERRLA, moist MMs Neck: no nodes, supple Respiratory: no wheezing, no rales, no rhonchi Cardiovascular: no significant murmur, no rub, irregular Irregularly irregular rate in 80s Gastrointestinal: soft, non-tender, no distention, positive bowel sounds Musculoskeletal: no edema, pulses present Neurological: non-focal, normal sensation, moves all 4 limbs Psychiatric: normal affect, A&O x 3 Skin: no rash Dx/Plan (1) Atrial fibrillation Code(s): I48.91 - UNSPECIFIED ATRIAL FIBRILLATION Status: Acute (2) Falls Code(s): W19.XXXA - UNSPECIFIED FALL, INITIAL ENCOUNTER Status: Acute (3) Generalized weakness Code(s): R53.1 - WEAKNESS Status: Acute (4) Vitamin D deficiency Code(s): E55.9 - VITAMIN D DEFICIENCY, UNSPECIFIED Status: Acute (5) Acute upper respiratory infection Code(s): J06.9 - ACUTE UPPER RESPIRATORY INFECTION, UNSPECIFIED Status: Acute (6) Seizure disorder Code(s): G40.909 - EPILEPSY, UNSP, NOT INTRACTABLE, WITHOUT STATUS EPILEPTICUS Status: Chronic (7) BPH (benign prostatic hyperplasia) Code(s): N40.0 - BENIGN PROSTATIC HYPERPLASIA WITHOUT LOWER URINRY TRACT SYMP Status: Acute (8) History of cerebrovascular accident Code(s): Z86.73 - PRSNL HX OF TIA (TIA), AND CEREB INFRC W/O RESID DEFICITS Status: Chronic - Plan Plan: Mr. Robbins is a 73 yo WM with h/o hemorrhagic CVA x3 who presents for increased generalized weakness and falls found to be in Afib. 1. New Onset Atrial Fibrillation - Had one fall from standing yesterday, similar to outpatient events. Found to be in afib with RVR that resolved with rest. D-dimer elevated 0.9 from 0.3 on admit. CTA ordered and was negative for PE. Will continue to await cards recs at this time and continue current mDig, Lipitor, Dilt, and Toprol. - Rates 90-110's. Hx of 3 hemorrhagic strokes, unsure of etiology, so will not anticoag at this time. Dr. Hernandez is neurologist. TSH WNL, Electrolytes WNL. Echo revealed EF 60-65%. Transitioned from Dilt gtt to PO. Has been tolerating well with no runs of RVR overnight. Blood pressure stable. - consult cards - D/C coreg, started digoxin and metoprolol; remained w/o rate control so placed on Diltiazem PO; 1 run on RVR yesterday with fall, appreciate rec's 2. Falls 2/2 generalized weakness - Suspected due to afib with RVR runs - Head CT WNL, CXR WNL, BMP, CBC, TSH, Mg, Phosph, Lactic acid WNL, U/A clean - PT/OT consulted, appreciate recs - Palliative consulted, Case management consulted, appreciate recs - at the time pt and feel need for HH upon discharge - continue management per above 3. URI - Symptoms of 2 day duration, afebrile in ED, UA clean, no acute s/s of other infection. Vitals stable, afebrile. BCx neg. Influenza/Resp Panel neg. Procal WNL - continue to monitor 4. Vit D Def - Pt is high risk for fall fracture. Vit D 11.3; continue Vit D3 replacement 5.BPH - straight cath overnight yielding 2550ml output. Complains of urinary frequency. Known and chronic in nature. Will continue flomax and recommend outpatient follow up. 6. H/O CVA - CT normal, no acute neurologic findings, Neuro exam demonstrated no focal deficits and unchanged from admission. - Will place on fall precautions and bed assist, and monitor neurologic status 7. H/O lifelong seizures - Will continue home Keppra. Keppra levels WNL - No history consistent with recent seizure. Will continue to monitor. VTE: SCDs Diet: Regular Code: Full - discussed with patient and at bedside Disposition/LOS: New onset a-fib requiring dilt drip will prolong stay, transitioned to PO; waiting on cards recs and approval as outpt Addendum - Attending - Attending Attestation Date/Time: 10/16/18 1028 I personally evaluated the patient and discussed the management with Dr. Whitt. I agree with the History, Examination, Assessment and Plan documented above with any addition or exceptions noted below.
[2018-10-16 06:00] LABS: Anion Gap 13 mmol/L (10-20); BUN (Urea Nitrogen) 12 mg/dL (8.4-25.7); Calc. Creatinine Clearance 77 mL/min (70-130); Calcium 8.8 mg/dL (7.8-10.44); Carbon Dioxide 25 mmol/L (23-31); Chloride 99 mmol/L (98-107); Estimated GFR-MDRD Greater than 90; Glucose 90 mg/dL (83-110); Sodium 133 mmol/L (136-145)
[2018-10-16 06:09] LABS: Band 2 % (5-11); Eosinophils 1 % (0-10); Hemoglobin 13.6 g/dL (14.0-18.0); Lymphocytes 33 % (21-51); MDiff Complete? YES; Mean Corpuscular HGB CONC 32.4 g/dL (32.0-36.0); Mean Corpuscular Hemoglobin 28.8 pg (27.0-31.0); Mean Corpuscular Volume 88.9 fL (78.0-98.0); Monocytes 12 % (0-10); Neutrophil 46 % (42-75); Platelet Count 160 thou/uL (130-400); RBC Distribution Width 12.9 % (11.5-14.5); Reactive Lymphocytes 5 % (0-10); Red Blood Cell (RBC) Count 4.71 mill/uL (4.70-6.10); White Blood Cell (WBC) Count 4.4 thou/uL (4.8-10.8)
[2018-10-16] MEDS: Docusate 100 MG CAP PO SCH (09:01)
[2018-10-16] MEDS: Digoxin 0.25 MG TAB PO SCH (09:01)
[2018-10-16] MEDS: levETIRAcetam 500 MG TAB PO SCH ×2 (09:02→21:00)
[2018-10-16] MEDS: Tamsulosin HCl 0.4 MG CAP PO SCH (09:08)
[2018-10-16] MEDS: Acetaminophen 325 MG TAB PO PRN (16:34)
[2018-10-16] MEDS: Atorvastatin Calcium 20 MG TAB PO SCH (21:00)
--- NOTE | 2018-10-16 21:30 | CON ---
DATE OF CONSULTATION: 10/16/2018 REFERRING PHYSICIAN: Dr. Luis Wen. HISTORY OF PRESENT ILLNESS: I am seeing Mr. 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 His problems are; 1. Chronic atrial fibrillation. 2. History of ischemic CVA with hemorrhagic conversion in 2011, resulting in partial vision loss and gait disturbances. 3. Frequent falls. 4. History of preserved LVEF on echo, 10/13/2018, [id number] MR, [id number] TR, mildly enlarged left atrial size and right atrial size. 5. History of hypertension. ALLERGIES: NONE NOTED. MEDICATIONS: Medications at home included Lipitor, docusate, tamsulosin, levetiracetam (Keppra), metoprolol, potassium chloride, etc. SUBJECTIVE: Mr. Robbins is here due to some acute mental status changes and generalized weakness. He had some upper respiratory tract infections with temperatures in the 100s before admission. On admission, there were no signs of sepsis. No definite major infection signs were noted. He had recurrent falls x4, hence was the admission. Currently, he is feeling well, lying in the bed. Denies dizziness or loss of consciousness. No stroke-like symptoms. No neurological deficits. No fever, chills, or cough. No PND or orthopnea. The rest of 12- point system otherwise unremarkable. PAST MEDICAL HISTORY: As above. History of ischemic CVA and subsequent hemorrhagic transformation in the occipitoparietal region noted, resulting in right hemianopsia and dysarthria. SOCIAL HISTORY: The patient is , lives with his . FAMILY HISTORY: Not contributory. OBJECTIVE DATA: VITAL SIGNS: Blood pressure is 100/58, heart rate 76, respiratory rate is 18, temperature 98.8 degrees Fahrenheit. GENERAL: Alert and oriented man, in no apparent distress. NECK: Supple. Jugular vein is not distended. CHEST: Coarse without crackles. HEART: Heart sounds are irregularly irregular. S1 and S2 variable. No gallop is heard. 1/6 holosystolic murmur is appreciated. PMI is nondisplaced. ABDOMEN: Benign. Bowel sounds positive. EXTREMITIES: Lower extremities without edema, clubbing, or cyanosis. Pulses are adequate. NEUROLOGIC: The patient is nonfocal. MUSCULOSKELETAL: Without joint swelling or deformity. SKIN: Without rash. DATABASE: EKG is reviewed revealing atrial fibrillation, narrow QRS, no significant ST-T changes. LABORATORY DATA: White count is 4.4, hemoglobin 13.6, platelet count is 160. D-dimer 0.92. Sodium 134, potassium 3.9, BUN is 10, creatinine 0.77. Troponin levels are negative. Chest x-ray on admission shows some hyperinflation and chronic changes. ASSESSMENT AND PLAN: Mr. Robbins is a very pleasant 73-year-old man with remote history of stroke, chronic atrial fibrillation, who had been admitted with disorientation and falls following likely viral upper respiratory tract infection spell. Now, he seems to be doing better. No new stroke-like issues noted. He continues to improve. His ventricular rates are rate controlled with current medication regimen including digoxin and diltiazem. On the other hand, he was told not to take anticoagulants hence history of hemorrhagic conversion of an ischemic stroke in the pasta atrial fibrillation. I discussed with the gentleman the potential risk associated with atrial fibrillation and lack of anticoagulation. I also appreciated the prior history of ischemic stroke with hemorrhagic conversion. We also discussed the potential benefit from Watchman device placement, albeit periprocedurally the need for at least low-dose Eliquis anticoagulation will need to be considered. At this point, he is undecided. We would like to follow up in the office for further discussion with his . I also discussed this with Dr. Wen and we will make arrangements to have him come back to our office for visit. Continue digoxin and diltiazem for anticoagulation. Job ID: [id number] [id number]
[2018-10-17 05:28] LABS: #Eosinphils 0.1 thou/uL (0.0-0.7); #Lymphocytes 1.7 thou/uL (1.20-3.40); #Monocytes 0.7 thou/uL (0.11-0.59); #Neutrophils 3.2 thou/uL (1.40-6.50); %Basophils 0.7 % (0.0-1.0); %Eosinophils 1.7 % (0.0-10.0); %Lymphocytes 29.5 % (21.0-51.0); %Monocytes 12.5 % (0.0-10.0); %Neutrophils 55.6 % (42.0-75.0); Hemoglobin 14.1 g/dL (14.0-18.0); Mean Corpuscular HGB CONC 32.3 g/dL (32.0-36.0); Mean Corpuscular Hemoglobin 28.6 pg (27.0-31.0); Mean Corpuscular Volume 88.7 fL (78.0-98.0); Mean Platelet Volume 7.7 fL (7.4-10.4); Platelet Count 182 thou/uL (130-400); RBC Distribution Width 12.8 % (11.5-14.5); Red Blood Cell (RBC) Count 4.93 mill/uL (4.70-6.10); White Blood Cell (WBC) Count 5.7 thou/uL (4.8-10.8)
--- NOTE | 2018-10-17 05:30 | PDOC.FM ---
- Subjective Subjective: Mr. Robbins is doing well this morning without concerns or complaints. He states he and his spoke with Cardiology and EP yesterday and are still considering treatment options. He states he plans to go home with either HH or to inpatient rehab and then follow up as outpatient with Cards and EP. He current denies any CP, SOB, n/v, diarrhea/constipation, fever, chills, or abdominal pain. - Objective MAR Reviewed: Yes Vital Signs & Weight: Vital Signs (12 hours) Temp Pulse Resp BP Pulse Ox 10/17/18 03:02 98.1 F 73 16 147/92 H 94 L 10/16/18 19:00 98.4 F 77 16 108/57 L 93 L Weight Weight 68.152 kg I&O: 10/15/18 10/16/18 10/17/18 06:59 06:59 06:59 Intake Total 1230 960 480 Output Total 1225 950 500 Balance 5 - Result Diagrams: 10/18/18 04:37 10/18/18 04:37 EKG Reviewed by me: Yes (Tele demonstrated rate controlled afib in 80s.) Phys Exam - Physical Examination Constitutional: NAD HEENT: moist MMs Neck: supple Respiratory: no wheezing, no rales, no rhonchi, clear to auscultation bilateral Cardiovascular: no significant murmur, no rub, irregular Gastrointestinal: soft, non-tender, no distention, positive bowel sounds Musculoskeletal: no edema, pulses present Neurological: non-focal, normal sensation, moves all 4 limbs Psychiatric: A&O x 3 Skin: no rash Dx/Plan (1) Atrial fibrillation Code(s): I48.91 - UNSPECIFIED ATRIAL FIBRILLATION Status: Acute (2) Falls Code(s): W19.XXXA - UNSPECIFIED FALL, INITIAL ENCOUNTER Status: Acute (3) Generalized weakness Code(s): R53.1 - WEAKNESS Status: Acute (4) Vitamin D deficiency Code(s): E55.9 - VITAMIN D DEFICIENCY, UNSPECIFIED Status: Acute (5) Acute upper respiratory infection Code(s): J06.9 - ACUTE UPPER RESPIRATORY INFECTION, UNSPECIFIED Status: Acute (6) Seizure disorder Code(s): G40.909 - EPILEPSY, UNSP, NOT INTRACTABLE, WITHOUT STATUS EPILEPTICUS Status: Chronic (7) BPH (benign prostatic hyperplasia) Code(s): N40.0 - BENIGN PROSTATIC HYPERPLASIA WITHOUT LOWER URINRY TRACT SYMP Status: Chronic (8) History of cerebrovascular accident Code(s): Z86.73 - PRSNL HX OF TIA (TIA), AND CEREB INFRC W/O RESID DEFICITS Status: Chronic - Plan Plan: Mr. Robbins is a 73 yo WM with h/o hemorrhagic CVA x3 who presents for increased generalized weakness and falls found to have new onset Afib. 1. New Onset Atrial Fibrillation - Experience run of Afib with RVR on 10/15 which resolved with rest. D-dimer elevated 0.9 from 0.3 on admit. CTA negative for PE. - Rates 80s. Hx of 3 hemorrhagic strokes, unsure of etiology, so will not anticoag at this time. Dr. Hernandez is neurologist. TSH WNL, Electrolytes WNL. Echo revealed EF 60-65% with no structural abnormality. Transitioned from Dilt gtt to PO. Has been tolerating well with no runs of RVR overnight. Blood pressure stable. - Cards and EP consulted - patient is undecided on anticoag vs Watchman vs current medical management. Plan to continue Dig, Toprol, and Dilt and f/u as outpatient for further management with Dr. Lee and Dr. Wen. Appreciate recs. 2. Falls 2/2 generalized weakness - Suspected due to afib with RVR runs - Head CT WNL, CXR WNL, BMP, CBC, TSH, Mg, Phos, Lactic acid WNL, U/A clean - PT/OT consulted, appreciate recs - Palliative consulted, Case management consulted, appreciate recs - at the time pt and feel need for HH vs inpatient rehab. Will begin to arrange. - continue medical management per above 3. URI - Symptoms of 2 day duration prior to admission, afebrile, vitals stable, UA clean, no acute s/s of other infection. BCx neg. Influenza/Resp Panel neg. Procal WNL - continue to monitor 4. Vit D Def - Pt is high risk for fall fracture. Vit D 11.3; continue Vit D3 replacement 5.BPH - Complains of urinary frequency. Known and chronic in nature. Will continue flomax and recommend outpatient follow up. 6. H/O CVA - CT normal, no acute neurologic findings, Neuro exam demonstrated no focal deficits and unchanged from admission. - On fall precautions and bed assist, and monitor neurologic status 7. H/O lifelong seizures - Continue home Keppra. Keppra levels WNL - No history consistent with recent seizure. Continue to monitor. VTE: SCDs Diet: Regular Code: Full Disposition/LOS: New onset a-fib with plan to f/u with EP and Cards as outpatient for further management. Will plan for d/c with vs inpatient rehab. Addendum - Attending - Attending Attestation Date/Time: 10/18/18 0462 I personally evaluated the patient and discussed the management with Dr. Whitt yesterday morning. I agree with the History, Examination, Assessment and Plan documented above with any addition or exceptions noted below.
[2018-10-17 05:47] LABS: Anion Gap 12 mmol/L (10-20); BUN (Urea Nitrogen) 17 mg/dL (8.4-25.7); Calc. Creatinine Clearance 75 mL/min (70-130); Calcium 9.2 mg/dL (7.8-10.44); Carbon Dioxide 30 mmol/L (23-31); Chloride 98 mmol/L (98-107); Estimated GFR-MDRD 88; Glucose 89 mg/dL (83-110); Potassium 4.7 mmol/L (3.5-5.1); Sodium 135 mmol/L (136-145)
[2018-10-17] MEDS: Docusate 100 MG CAP PO SCH (08:17)
[2018-10-17] MEDS: Digoxin 0.25 MG TAB PO SCH (08:17)
[2018-10-17] MEDS: Tamsulosin HCl 0.4 MG CAP PO SCH (08:18)
[2018-10-17] MEDS: levETIRAcetam 500 MG TAB PO SCH ×2 (08:18→21:12)
[2018-10-17] MEDS: Atorvastatin Calcium 20 MG TAB PO SCH (21:13)
[2018-10-18 05:26] LABS: #Eosinphils 0.1 thou/uL (0.0-0.7); #Lymphocytes 1.8 thou/uL (1.20-3.40); #Monocytes 0.5 thou/uL (0.11-0.59); %Basophils 0.8 % (0.0-1.0); %Eosinophils 2.8 % (0.0-10.0); %Lymphocytes 40.8 % (21.0-51.0); %Monocytes 10.9 % (0.0-10.0); %Neutrophils 44.8 % (42.0-75.0); Hemoglobin 13.6 g/dL (14.0-18.0); Mean Corpuscular HGB CONC 32.1 g/dL (32.0-36.0); Mean Corpuscular Hemoglobin 28.7 pg (27.0-31.0); Mean Corpuscular Volume 89.4 fL (78.0-98.0); Mean Platelet Volume 7.7 fL (7.4-10.4); Platelet Count 198 thou/uL (130-400); RBC Distribution Width 12.7 % (11.5-14.5); Red Blood Cell (RBC) Count 4.73 mill/uL (4.70-6.10); White Blood Cell (WBC) Count 4.4 thou/uL (4.8-10.8)
[2018-10-18 05:43] LABS: Anion Gap 10 mmol/L (10-20); BUN (Urea Nitrogen) 16 mg/dL (8.4-25.7); Calc. Creatinine Clearance 80 mL/min (70-130); Calcium 9.3 mg/dL (7.8-10.44); Carbon Dioxide 29 mmol/L (23-31); Chloride 99 mmol/L (98-107); Estimated GFR-MDRD Greater than 90; Glucose 89 mg/dL (83-110); Potassium 3.9 mmol/L (3.5-5.1); Sodium 134 mmol/L (136-145)
--- NOTE | 2018-10-18 06:10 | PDOC.FM ---
- Subjective Subjective: Doing well this morning. He was restless overnight and did not get much sleep, and is very eager to be discharged either home with HH or to inpatient rehab. No fevers/chills, CP, SOB, N/v, diarrhea/constipation overnight. - Objective MAR Reviewed: Yes Vital Signs & Weight: Vital Signs (12 hours) Temp Pulse Resp BP Pulse Ox 10/18/18 04:00 97.5 F L 59 L 18 108/63 97 10/18/18 00:00 50 L 111/72 10/17/18 20:40 98.4 F 71 16 105/63 96 10/17/18 19:40 96 Weight Weight 70.171 kg I&O: 10/16/18 10/17/18 10/18/18 06:59 06:59 06:59 Intake Total 960 680 680 Output Total 950 1000 325 Balance 10 -320 355 Result Diagrams: 10/18/18 04:37 10/18/18 04:37 EKG Reviewed by me: Yes (Tele: Rate controlled Afib) Phys Exam - Physical Examination Constitutional: NAD HEENT: moist MMs Neck: supple Respiratory: no wheezing, no rales, no rhonchi, clear to auscultation bilateral Cardiovascular: no significant murmur, no rub, irregular Gastrointestinal: soft, non-tender, no distention, positive bowel sounds Musculoskeletal: no edema Neurological: non-focal, moves all 4 limbs Psychiatric: A&O x 3 Dx/Plan (1) Atrial fibrillation Code(s): I48.91 - UNSPECIFIED ATRIAL FIBRILLATION Status: Acute (2) Falls Code(s): W19.XXXA - UNSPECIFIED FALL, INITIAL ENCOUNTER Status: Acute (3) Generalized weakness Code(s): R53.1 - WEAKNESS Status: Acute (4) Vitamin D deficiency Code(s): E55.9 - VITAMIN D DEFICIENCY, UNSPECIFIED Status: Acute (5) Seizure disorder Code(s): G40.909 - EPILEPSY, UNSP, NOT INTRACTABLE, WITHOUT STATUS EPILEPTICUS Status: Chronic (6) BPH (benign prostatic hyperplasia) Code(s): N40.0 - BENIGN PROSTATIC HYPERPLASIA WITHOUT LOWER URINRY TRACT SYMP Status: Chronic (7) History of cerebrovascular accident Code(s): Z86.73 - PRSNL HX OF TIA (TIA), AND CEREB INFRC W/O RESID DEFICITS Status: Chronic - Plan Plan: Mr. Robbins is a 73 yo WM with h/o hemorrhagic CVA x3 who presents for increased generalized weakness and falls found to have new onset Afib. 1. New Onset Atrial Fibrillation - Initially had runs of Afib with RVR on 10/15, but has since been been rate controlled with stable vitals on dilt, dig, and Toprol. CTA neg for PE. - Hx of 3 hemorrhagic strokes, Dr. Hernandez is neurologist. TSH WNL, Electrolytes WNL. Echo revealed EF 60-65% with no structural abnormality. - Cards and EP consulted - patient is undecided on anticoag vs Watchman vs current medical management. Plan to continue Dig, Toprol, and Dilt and f/u as outpatient for further management with Dr. Lee and Dr. Wen. Appreciate recs. 2. Falls 2/2 generalized weakness - Suspected due to afib with RVR runs. Continue medical management per above. - Head CT, CXR, CBC, Lytes, and Lactic acid all WNL, U/A clean - PT/OT consulted, appreciate recs - Palliative consulted, Case management consulted, appreciate recs - at the time pt and feel need for inpatient rehab. Rehab screen ordered. Pending placement at this time. 3. Vit D Def - Pt is high risk for fall fracture. Vit D 11.3; continue Vit D3 replacement 4.BPH - Complains of urinary frequency. Known and chronic in nature. Will continue flomax and recommend outpatient follow up. 5. H/O CVA - CT normal, no acute neurologic findings, Neuro exam demonstrated no focal deficits and unchanged from admission. - On fall precautions and bed assist, continue to monitor neurologic status 6. H/O lifelong seizures - Continue home Keppra. Keppra levels WNL - No history consistent with recent seizure. Continue to monitor. VTE: SCDs Diet: Regular Code: Full Disposition/LOS: New onset a-fib with plan to f/u with EP and Cards as outpatient for further management. Ready for discharge and pending inpatient rehab bed placement, will go home with if rehab unavailable. Addendum - Attending - Attending Attestation Date/Time: 10/18/18 8607 I personally evaluated the patient and discussed the management with Dr. Whitt. I agree with the History, Examination, Assessment and Plan documented above with any addition or exceptions noted below.
[2018-10-18] MEDS: levETIRAcetam 500 MG TAB PO SCH ×2 (10:14→20:23)
[2018-10-18] MEDS: Tamsulosin HCl 0.4 MG CAP PO SCH (10:15)
[2018-10-18] MEDS: Digoxin 0.25 MG TAB PO SCH (10:15)
[2018-10-18] MEDS: Docusate 100 MG CAP PO SCH (10:15)
[2018-10-18] MEDS: Melatonin 3 MG TAB PO PRN (20:23)
[2018-10-18] MEDS: Atorvastatin Calcium 20 MG TAB PO SCH (20:23)
[2018-10-19 05:35] LABS: #Eosinphils 0.1 thou/uL (0.0-0.7); #Monocytes 0.6 thou/uL (0.11-0.59); #Neutrophils 4.3 thou/uL (1.40-6.50); %Basophils 0.5 % (0.0-1.0); %Eosinophils 1.6 % (0.0-10.0); %Lymphocytes 28.1 % (21.0-51.0); %Monocytes 8.6 % (0.0-10.0); %Neutrophils 61.2 % (42.0-75.0); Hemoglobin 13.8 g/dL (14.0-18.0); Mean Corpuscular HGB CONC 32.1 g/dL (32.0-36.0); Mean Corpuscular Hemoglobin 28.6 pg (27.0-31.0); Mean Platelet Volume 7.7 fL (7.4-10.4); Platelet Count 205 thou/uL (130-400); RBC Distribution Width 12.7 % (11.5-14.5); Red Blood Cell (RBC) Count 4.84 mill/uL (4.70-6.10)
[2018-10-19 05:55] LABS: Anion Gap 10 mmol/L (10-20); BUN (Urea Nitrogen) 16 mg/dL (8.4-25.7); Calc. Creatinine Clearance 68 mL/min (70-130); Calcium 9.3 mg/dL (7.8-10.44); Carbon Dioxide 27 mmol/L (23-31); Chloride 100 mmol/L (98-107); Estimated GFR-MDRD 86; Glucose 91 mg/dL (83-110); Potassium 4.2 mmol/L (3.5-5.1); Sodium 133 mmol/L (136-145)
--- NOTE | 2018-10-19 05:56 | PDOC.FM ---
- Subjective Subjective: Mr. Robbins is doing well this morning with any concerns or complaints. He slept overnight without any acute events. He denies any CP, SOB, N/v, Diarrhea/ constipation, fever/chills. He is earger to be discharged to inpatient rehab. - Objective MAR Reviewed: Yes Vital Signs & Weight: Vital Signs (12 hours) Temp Pulse Resp BP Pulse Ox 10/19/18 04:16 97.8 F 65 18 132/67 96 10/19/18 00:00 98.0 F 72 18 109/69 10/18/18 20:00 98.5 F 18 94/53 L 95 Weight Weight 65.363 kg I&O: 10/17/18 10/18/18 10/19/18 06:59 06:59 06:59 Intake Total 680 770 880 Output Total 1000 925 800 Balance -320 -155 80 Result Diagrams: 10/19/18 05:10 10/19/18 05:10 EKG Reviewed by me: Yes (Tele: Afib rate controlled) Phys Exam - Physical Examination Constitutional: NAD HEENT: PERRLA, moist MMs Neck: supple Respiratory: no wheezing, no rales, no rhonchi, clear to auscultation bilateral Cardiovascular: RRR, no significant murmur, no rub Gastrointestinal: soft, non-tender, no distention, positive bowel sounds Musculoskeletal: no edema, pulses present Neurological: non-focal, moves all 4 limbs Dx/Plan (1) Atrial fibrillation Code(s): I48.91 - UNSPECIFIED ATRIAL FIBRILLATION Status: Acute (2) Falls Code(s): W19.XXXA - UNSPECIFIED FALL, INITIAL ENCOUNTER Status: Acute (3) Generalized weakness Code(s): R53.1 - WEAKNESS Status: Acute (4) Vitamin D deficiency Code(s): E55.9 - VITAMIN D DEFICIENCY, UNSPECIFIED Status: Acute (5) Seizure disorder Code(s): G40.909 - EPILEPSY, UNSP, NOT INTRACTABLE, WITHOUT STATUS EPILEPTICUS Status: Chronic (6) BPH (benign prostatic hyperplasia) Code(s): N40.0 - BENIGN PROSTATIC HYPERPLASIA WITHOUT LOWER URINRY TRACT SYMP Status: Chronic (7) History of cerebrovascular accident Code(s): Z86.73 - PRSNL HX OF TIA (TIA), AND CEREB INFRC W/O RESID DEFICITS Status: Chronic - Plan Plan: Mr. Robbins is a 73 yo WM with h/o hemorrhagic CVA x3 who presents for increased generalized weakness and falls found to have new onset Afib. 1. New Onset Atrial Fibrillation - Initial runs of Afib with RVR on 10/15, but since been rate controlled with stable vitals on dilt, dig, and Toprol. - Hx of 3 hemorrhagic strokes, Dr. Hernandez is neurologist. Echo revealed EF 60- 65% with no structural abnormality. - Cards and EP consulted - patient is undecided on anticoag vs Watchman vs current medical management. Plan to continue Dig, Toprol, and Dilt and f/u as outpatient for further management with Dr. Lee and Dr. Wen. Appreciate recs. 2. Falls suspected due to Afib with runs of RVR and generalized deconditioning - Continue medical management per above. Labs and Imaging unremarkable - PT/OT consulted, appreciate assistance - Case management consulted, appreciate assistance - approved for inpt rehab, awaiting bed availability 3. Vit D Def - Continue replacement. 4.BPH - Chronic. Continue current home Flomax. 5. H/O CVA - CT normal, no acute neurologic findings, stable. - Fall precautions and bed assist, continue to monitor neurologic status 6. H/O lifelong seizures - Continue home Keppra. Continue to monitor. VTE: SCDs Diet: Regular Code: Full Disposition/LOS: New onset a-fib with plan to f/u with EP and Cards as outpatient for further management. Ready for discharge, approved for inpatient rehab, awaiting bed. Addendum - Attending - Attending Attestation Date/Time: 10/19/18 1296 I personally evaluated the patient and discussed the management with Dr. Whitt. I agree with the History, Examination, Assessment and Plan documented above with any addition or exceptions noted below.
[2018-10-19] MEDS: Digoxin 0.25 MG TAB PO SCH (09:55)
[2018-10-19] MEDS: Tamsulosin HCl 0.4 MG CAP PO SCH (09:56)
[2018-10-19] MEDS: levETIRAcetam 500 MG TAB PO SCH ×2 (09:56→20:30)
[2018-10-19] MEDS: Docusate 100 MG CAP PO SCH (10:01)
[2018-10-19] MEDS: Atorvastatin Calcium 20 MG TAB PO SCH (20:30)
[2018-10-19] MEDS: Melatonin 3 MG TAB PO PRN (20:33)
[2018-10-20 06:07] LABS: #Eosinphils 0.1 thou/uL (0.0-0.7); #Lymphocytes 1.8 thou/uL (1.20-3.40); #Monocytes 0.4 thou/uL (0.11-0.59); #Neutrophils 2.2 thou/uL (1.40-6.50); %Basophils 0.9 % (0.0-1.0); %Eosinophils 1.9 % (0.0-10.0); %Monocytes 9.3 % (0.0-10.0); %Neutrophils 48.8 % (42.0-75.0); Hemoglobin 13.1 g/dL (14.0-18.0); Mean Corpuscular HGB CONC 31.7 g/dL (32.0-36.0); Mean Corpuscular Hemoglobin 28.2 pg (27.0-31.0); Mean Corpuscular Volume 89.1 fL (78.0-98.0); Mean Platelet Volume 7.5 fL (7.4-10.4); Platelet Count 226 thou/uL (130-400); RBC Distribution Width 12.5 % (11.5-14.5); Red Blood Cell (RBC) Count 4.64 mill/uL (4.70-6.10); White Blood Cell (WBC) Count 4.5 thou/uL (4.8-10.8)
--- NOTE | 2018-10-20 06:21 | PDOC.FM ---
- Subjective Subjective: Mr. Robbins is doing well this morning, slept well, without any acute events overnight. No CP, SOB, n/v, fever/chills. He is eager to go to inpatient rehab this morning. - Objective MAR Reviewed: Yes Vital Signs & Weight: Vital Signs (12 hours) Temp Pulse Resp BP Pulse Ox 10/20/18 04:20 100/57 L 10/20/18 04:00 97.4 F L 71 17 96/56 L 96 10/19/18 23:59 97.7 F 62 103/58 L 95 10/19/18 20:30 97.8 F 66 18 102/63 94 L Weight Weight 67.755 kg I&O: 10/18/18 10/19/18 10/20/18 06:59 06:59 06:59 Intake Total 770 890 410 Output Total 913 323 4832 Balance -155 40 -745 Result Diagrams: 10/20/18 04:55 10/20/18 04:55 EKG Reviewed by me: Yes (Tele: Afib rate controlled. No acute events.) Phys Exam - Physical Examination Constitutional: NAD HEENT: moist MMs Neck: supple Respiratory: no wheezing, no rales, no rhonchi, clear to auscultation bilateral Cardiovascular: RRR, no significant murmur, no rub Gastrointestinal: soft, non-tender, no distention, positive bowel sounds Musculoskeletal: no edema, pulses present Neurological: non-focal, moves all 4 limbs Psychiatric: normal affect Skin: no rash Dx/Plan (1) Atrial fibrillation Code(s): I48.91 - UNSPECIFIED ATRIAL FIBRILLATION Status: Acute (2) Falls Code(s): W19.XXXA - UNSPECIFIED FALL, INITIAL ENCOUNTER Status: Acute (3) Generalized weakness Code(s): R53.1 - WEAKNESS Status: Acute (4) Vitamin D deficiency Code(s): E55.9 - VITAMIN D DEFICIENCY, UNSPECIFIED Status: Acute (5) Seizure disorder Code(s): G40.909 - EPILEPSY, UNSP, NOT INTRACTABLE, WITHOUT STATUS EPILEPTICUS Status: Chronic (6) BPH (benign prostatic hyperplasia) Code(s): N40.0 - BENIGN PROSTATIC HYPERPLASIA WITHOUT LOWER URINRY TRACT SYMP Status: Chronic (7) History of cerebrovascular accident Code(s): Z86.73 - PRSNL HX OF TIA (TIA), AND CEREB INFRC W/O RESID DEFICITS Status: Chronic - Plan Plan: Mr. Robbins is a 73 yo WM with h/o hemorrhagic CVA x3 who presents for increased generalized weakness and falls found to have new onset Afib. 1. New Onset Atrial Fibrillation - Rate controlled with stable vitals on dilt, dig, and Toprol. - Hx of 3 hemorrhagic strokes, Dr. Hernandez is neurologist. Echo EF 60-65% with no structural abnormality. - Cards and EP consulted - patient is undecided on anticoag vs Watchman vs current medical management. Plan to continue Dig, Toprol, and Dilt and f/u as outpatient for further management with Dr. Lee and Dr. Wen. Appreciate recs. 2. Falls suspected due to Afib with runs of RVR and generalized deconditioning - Continue medical management per above. Labs and Imaging unremarkable. PT/OT consulted, appreciate assistance - Case management consulted, appreciate assistance - approved for inpt rehab, told bed available and he will be discharged today 3. Vit D Def - Continue replacement. 4.BPH - Chronic. Continue current home Flomax. F/u OP. 5. H/O CVA - CT normal, no acute neurologic findings, stable. - Fall precautions and bed assist, continue to monitor. 6. H/O lifelong seizures - Continue home Keppra. Continue to monitor. VTE: SCDs Diet: Regular Code: Full Disposition/LOS: New onset a-fib with plan to f/u with EP and Cards as outpatient for further management. Ready for discharge, approved for inpatient rehab, plan for d/c to rehab today. Addendum - Attending - Attending Attestation Date/Time: 10/20/18 2776 I personally evaluated the patient and discussed the management with Dr. Whitt. I agree with the History, Examination, Assessment and Plan documented above with any addition or exceptions noted below.
[2018-10-20 06:31] LABS: Anion Gap 11 mmol/L (10-20); BUN (Urea Nitrogen) 19 mg/dL (8.4-25.7); Calc. Creatinine Clearance 73 mL/min (70-130); Calcium 9.3 mg/dL (7.8-10.44); Carbon Dioxide 28 mmol/L (23-31); Chloride 98 mmol/L (98-107); Estimated GFR-MDRD 89; Glucose 89 mg/dL (83-110); Potassium 4.3 mmol/L (3.5-5.1); Sodium 133 mmol/L (136-145)
[2018-10-20] MEDS: levETIRAcetam 500 MG TAB PO SCH (09:22)
[2018-10-20] MEDS: Docusate 100 MG CAP PO SCH (09:22)
[2018-10-20] MEDS: Tamsulosin HCl 0.4 MG CAP PO SCH (09:22)
[2018-10-20] MEDS: Digoxin 0.25 MG TAB PO SCH (09:23)
--- NOTE | 2018-10-20 09:52 | PRG ---
DATE OF SERVICE: 10/20/2018 PRIMARY SUPPLY CHAIN ENGINEER: Luis Wen MD SUBJECTIVE: Mr. Robbins appears depressed today. He denies chest pain or pressure. His meal is at the bedside, but he is with his eyes closed, he has not eaten yet. It is 9:06 a.m. OBJECTIVE: VITAL SIGNS: His blood pressure is 103/61 and pulse is 58, it is irregular. LUNGS: Clear. CARDIAC: Irregularly irregular. ABDOMEN: Soft and nontender. EXTREMITIES: There is no edema. ASSESSMENT: Atrial fibrillation with a slow ventricular response. PLAN: 1. Dr. Wen has discontinued the diltiazem. 2. We will hold the digoxin today and start a lower dose tomorrow and his heart rate is relatively low. Also having some pauses on the monitor. We will try to maintain him on Toprol-XL 50 mg a day and digoxin 0.125 mg a day starting tomorrow. Thank you, Dr. Encarnacion, to see this weekend and Dr. Wen back on Tuesday. Job ID: [id number]
[2018-10-20 14:38] VITALS: TEMP 97.8
[2018-10-20 19:48] VITALS: BP 108/74
[2018-10-21] MEDS ORDERED: Digoxin 0.125 MG TAB PO SCH (09:00)
--- NOTE | 2018-10-22 05:25 | DIS ---
DATE OF ADMISSION: 10/13/2018 DATE OF DISCHARGE: 10/20/2018 RESIDENT: Jori Whitt MD. ADMITTING ATTENDING: Dr. Radha Smith. DISCHARGE ATTENDING: Dr. Ruben Garcia. CONSULTS: 1. Cardiology - Dr. Jonah Wen. 2. CV Surgery - Dr. Samson Lee. PROCEDURES: 1. Chest x-ray - normal pulmonary vasculature with hyperinflation and chronic changes. No acute cardiopulmonary process. 2. Brain CT - no acute intracranial process. 3. EKG, initially sinus tachycardia. Repeat later showed atrial fibrillation with RVR, and final EKG noted to be atrial fibrillation with rate control. 4. Echocardiogram - ejection fraction 60% to 65%. Mild to moderate mitral regurgitation and mild and moderate tricuspid regurgitation. 5. CTA chest - no evidence of pulmonary artery embolism. PRIMARY DIAGNOSES: 1. New onset atrial fibrillation. 2. Recurrent falls, suspected due to atrial fibrillation with runs of RVR and generalized deconditioning. 3. Vitamin D deficiency. SECONDARY DIAGNOSES: 1. History of hemorrhagic cerebrovascular accident. 2. History of lifelong seizures. 3. BPH. DISCHARGE MEDICATIONS: 1. Cholecalciferol 1000 units p.o. daily. 2. Diltiazem CD 120 mg p.o. daily. 3. Toprol XL 50 mg p.o. daily. 4. Digoxin 0.125 mg p.o. daily. 5. Lipitor 40 mg p.o. nightly. 6. Colace 100 mg p.o. daily. 7. Flomax 0.4 mg p.o. daily. 8. Keppra 1000 mg p.o. b.i.d. 9. Potassium chloride 10 mEq p.o. b.i.d. 10. Zoloft 50 mg p.o. daily. DISCONTINUED MEDICATIONS: None. HISTORY OF PRESENT ILLNESS: Mr. Robbisn is a pleasant 73-year-old male with history of hemorrhagic stroke x3 who presented for generalized weakness and multiple falls. History was obtained from the patient as well as the patient's at bedside. His reports that he was at his baseline until earlier on the day of admission when his legs began to shake and then complained of weakness, he then fell from standing without any trauma. He was able to get back to his feet with his walker. He did not experience any loss of consciousness, postictal state, loss of bladder or bowel control or focal neurologic deficits before, during, or after the fall. Prior to this episode, he had a fall in April of 2018, with similar symptoms. says that he has about a 2-day history of cough and congestion and mild cold-like symptoms, but otherwise no acute illnesses or recent sick contacts. She does state that when he gets acutely ill, he does become generally weaker until the resolution of the illness. In the emergency department, he was given a 2 L normal saline bolus and 1 g of Tylenol with improvement in his vitals and clinic status. He was admitted to telemetry for further evaluation and management. His initial EKG showed sinus tachycardia with no ST or T-wave changes and normal axis. His initial imaging including chest x-ray and CT of head were unremarkable. Initial lab work was relatively unremarkable. UA was negative. Later that evening on the day of admission, the patient had tachycardia to the 140s with an irregularly irregular rhythm. He was hemodynamically stable with blood pressures in the 110s/60s and a 12-leak EKG demonstrated atrial fibrillation. The patient had no complaints of chest pain or shortness of breath, and was hemodynamically stable. Repeat electrolytes, troponins, and D-dimer were ordered as the patient had no previous known history of atrial fibrillation. Cardiology was then consulted for further recommendations and management. An echocardiogram was ordered that demonstrated the above findings. Due to his history hemorrhagic CVA, the risks, benefits, and alternatives were discussed with the patient regarding anticoagulation and the patient and his decided at this time they would not like to pursue anticoagulation. His repeat electrolytes were within normal limits, and a vitamin D level was found to be low at 11.3, and thus, he was started on appropriate vitamin D supplementation. On day #3 of admission, the team was notified of a fall/ weakness while the patient was ambulating to the bathroom. He says that his legs became weak and this was very similar to his episodes at home prior to admission. Telemetry strip was assessed and it displayed a run of atrial fibrillation with RVR that was resolved with rest. His D-dimer was elevated from 0.9 to 0.3, and thus, a CT angio of the chest was ordered and was negative per above. Cardiology was notified of this run of atrial fibrillation with RVR and started him on digoxin, Toprol, and a diltiazem drip. The diltiazem drip was then transitioned to p.o. The patient tolerated the additional medications well without any side effects. He remained in rate controlled atrial fibrillation throughout the remainder of his hospitalization stay. He remained hemodynamically stable with no new lab abnormalities. The patient was stable and back to his baseline at this time. It was then discussed with and the patient whether he will go home with home health or to an inpatient rehab facility. He has previously been in an inpatient rehab facility after his prior hemorrhagic CVAs. His expressed that he had become weaker in the recent months and would benefit from inpatient rehab. Thus, Case Management and a rehab screen were ordered. Due to bed availability , the patient remained in hospital for an additional 3 days until bed became available and then he was discharged to inpatient rehab. During his stay, he was continued on his p.o. diltiazem, digoxin, Toprol, as well as his home medications. He continued to do well, no acute complaints, no return of symptoms, and remained hemodynamically stable, and was eager for discharge. At the time of discharge, the discharge plan was discussed with and the patient and they were in agreement understanding of discharge plan. They will follow up with Cardiology as well as CV Surgery as an outpatient. At this time, the patient's decided they would not pursue anticoagulation nor undergo procedure such as Watchman procedure recommended by Dr. Lee. The patient says that they will follow up as an outpatient and consider these therapies in the future. The need for followup with Cardiology and PCP was discussed and the patient and were in agreement and understanding. The patient was then discharged to inpatient rehab. DISPOSITION: Stable. DISCHARGE INSTRUCTIONS: 1. Location: Inpatient rehab. 2. Diet: Regular. 3. Activity: With assistance and walker. PT and OT recommended during inpatient rehab to increase strength. 4. Followup: The patient will need to follow up with Cardiology, CV Surgery, and PCP within 1 week of discharge from inpatient rehab. Job ID: [id number] [email or web address]
== END 2018-10-20 16:45 | DRG 310 ==
LOC: ERS 16:38 → T4-B 18:28 → 2NO 10-13 05:28 → OBSVTOIN 10-13 05:31
PROVIDERS: ADMIT Family Medicine; ATTEND Family Medicine
DX: I48.91 Unspecified atrial fibrillation (principal); M19.90 Unspecified osteoarthritis, unspecified site; J06.9 Acute upper respiratory infection, unspecified; G40.909 Epilepsy, unspecified, not intractable, without status epilepticus; E86.0 Dehydration; N40.0 Benign prostatic hyperplasia without lower urinary tract symptoms; E55.9 Vitamin D deficiency, unspecified; H54.8 Legal blindness, as defined in USA; F32.9 Major depressive disorder, single episode, unspecified; R29.6 Repeated falls; I08.1 Rheumatic disorders of both mitral and tricuspid valves; Z86.73 Personal history of transient ischemic attack (TIA), and cerebral infarction without residual deficits; Z85.828 Personal history of other malignant neoplasm of skin
CPT/HCPCS: 36415; 70450; 71045; 71275; 80048; 80053; 80177; 81003; 82306; 82550; 83605; 83735; 83880; 84100; 84145; 84443; 84484; 85025; 85379; 87040; 87086; 87633; 87804; 93005; 93010; 93306; 94760; 96360; 96361; J1160; J3490; Q9966

== ENCOUNTER 2019-10-19 10:36 | Inpatient (IN) | payer MEDICARE, BC ==
--- NOTE | 2019-10-19 12:06 | CT ---
CT HEAD WITHOUT IV CONTRAST COMPARISON: 10/12/2018 HISTORY: Altered mental status. TECHNIQUE: Axial CT imaging at 5 mm intervals from vertex through skull base without contrast FINDINGS: There is decreased attenuation in the periventricular white matter which is nonspecific but likely re flective of chronic small vessel ischemic changes not significantly progressed from prior exam. There is encephalomalacia seen within each occipital lobe compatible with remote infarctions.. There is mild cerebral and cerebellar volume loss. The ventricular system is normal in size, shape, a nd position for the degree of sulcal atrophy. There is a rounded area of increased density seen in the posterior superior left temporal lobe measur ing 8 mm compatible with focal parenchymal hemorrhage. No additional intraparenchymal or extra-axial hemorrhage is identified. There is no evidence of an acute cortical infarction, mass effe ct, or midline shift. Visualized paranasal sinuses are clear. Osseous structures appear intact. No calvarial fracture is seen. IMPRESSION: 1. Small parenchymal hemorrhage involving the left temporal lobe. Patient does have reported history of a fall, and this may be related to recent injury. Follow-up examination is recommended to ensure expected evolutionary changes in blood products. No additional areas of hemorrhage are seen, and ther e is no mass effect or midline shift. 2. Chronic changes. 3. Above findings discussed Dr. Kee in the emergency prominent on 10/19/2019 at 1202 hours.
[2019-10-19 12:08] LABS: #Eosinphils 0.1 thou/uL (0.0-0.7); #Lymphocytes 1.1 thou/uL (1.20-3.40); #Monocytes 0.5 thou/uL (0.11-0.59); #Neutrophils 4.1 thou/uL (1.40-6.50); %Basophils 0.2 % (0.0-1.0); %Eosinophils 1.7 % (0.0-10.0); %Lymphocytes 19.5 % (21.0-51.0); %Neutrophils 69.7 % (42.0-75.0); Hemoglobin 12.7 g/dL (14.0-18.0); Mean Corpuscular HGB CONC 32.3 g/dL (32.0-36.0); Mean Corpuscular Hemoglobin 28.9 pg (27.0-31.0); Mean Corpuscular Volume 89.7 fL (78.0-98.0); Mean Platelet Volume 7.8 fL (7.4-10.4); Platelet Count 175 thou/uL (130-400); RBC Distribution Width 13.3 % (11.5-14.5); Red Blood Cell (RBC) Count 4.39 mill/uL (4.70-6.10); White Blood Cell (WBC) Count 5.9 thou/uL (4.8-10.8)
--- NOTE | 2019-10-19 12:16 | RAD ---
Chest AP view INDICATION: Altered mental status COMPARISON: October 12, 2018 FINDINGS: Lungs: The lungs are clear Cardiac silhouette: Stable mild cardiomegaly Pulmonary vasculature: Normal Pleural spaces: No pleural effusion or pneumothorax is demonstrated. Upper abdomen: No abnormality seen. Osseous structures: Stable healed deformity of the left midshaft clavicle. No acute fracture or subl uxation demonstrated. Additional findings: None. IMPRESSION: No acute cardiopulmonary abnormality.
[2019-10-19 12:35] LABS: ALT (SGPT) 9 U/L (8-55); AST (SGOT) 12 U/L (5-34); Albumin 3.7 g/dL (3.4-4.8); Alkaline Phosphatase 63 U/L (40-110); Anion Gap 9 mmol/L (10-20); BUN (Urea Nitrogen) 13 mg/dL (8.4-25.7); Bilirubin, Total 0.8 mg/dL (0.2-1.2); CK (CPK) 97 U/L (30-200); Calc. Creatinine Clearance 0 mL/min (70-130); Calcium 8.9 mg/dL (7.8-10.44); Carbon Dioxide 28 mmol/L (23-31); Chloride 102 mmol/L (98-107); Estimated GFR-MDRD 71; Glucose 108 mg/dL (83-110); Lipase 39 U/L (8-78); Potassium 4.1 mmol/L (3.5-5.1); Protein, Total 5.7 g/dL (5.8-8.1); Sodium 135 mmol/L (136-145)
[2019-10-19 12:42] LABS: INR-International Normal Ratio 1.1; PTT 29.2 sec (22.9-36.1); Prothrombin Time 14.2 sec (12.0-14.7)
[2019-10-19 12:45] LABS: Bacteria/HPF None Seen HPF (None Seen); Bilirubin Negative (Negative); Blood, Urine Trace (Negative); Clarity Clear (Clear); Glucose, Urine (Dipstick) Normal (Negative); Ketone, Urine Negative (Negative); Leukocyte Negative Leu/uL (Negative); Nitrite Negative (Negative); Protein, Urine (Dipstick) Negative (Neg-Trace); Squamous Epithelial None Seen HPF (0-3); Urobilinogen Normal mg/dL (Less than 2); WBC/HPF 0-3 HPF (0-3)
[2019-10-19 12:58] LABS: Digoxin 0.33 ng/mL (0.8-2.0)
[2019-10-19] MEDS ORDERED: niCARdipine 25 MG in Sodium Chloride 0.9% 250 ML 240 ML IVPB PRN (15:01)
--- NOTE | 2019-10-19 15:14 | PDOC.FPRHP ---
- History of Present Illness Chief Complaint: AMS History of Present Illness: Moustapha Robbins is a 74 year old male with a history of hemorrhagic CVA x 3, Afib , epilepsy, anxiety and MDD who was brought to the ED by his due to AMS. The was not in the room during evaluation. Per ED physician, the reported increased confusion and increased need for ADL assistance such as showering for the past 3 days. She reported an episode of urinary incontinence. The patient reports dysuria and retention for the past month. He denies suprapubic pain or hematuria. He reports an episode of diffuse chest pain rated a 6/10 last pm that resolved on its own. He notes one episode of vomiting with associated nausea that resolved. He denies chest pain currently, SOB, headache, acute vision changes, generalized weakness and focal deficits. He denies recent falls or trauma. ED Course: Vital signs stable. GCS 15. No acute focal deficit noted. CT Brain showed small parenchymal hemorrhage in the left temporal lobe. ER physician spoke to neurosurgery prior to admission. - Allergies/Adverse Reactions Allergies Allergy/AdvReac Type Severity Reaction Status Date / Time No Known Allergies Allergy Verified 10/19/19 17:57 - Home Medications Medication Instructions Recorded Confirmed Type Atorvastatin Calcium [Lipitor] 40 mg PO HS #0 tab 10/15/15 10/19/19 Rx Docusate Sodium 100 mg PO DAILY PRN 12/09/16 10/19/19 History levETIRAcetam [Keppra] 1,000 mg PO BID #60 tab 12/12/16 10/19/19 Rx Potassium Chloride [Klor-Con M10] 10 meq PO BID-WM 10/13/18 10/19/19 History Sertraline HCl 50 mg PO DAILY 10/13/18 10/19/19 History Metoprolol Succinate [Toprol XL] 50 mg PO DAILY #30 tab 10/18/18 10/19/19 Rx Digoxin [Lanoxin] 0.125 mg PO HS 10/19/19 10/19/19 History Melatonin [Melatonin ER] 10 mg PO PRN PRN 10/19/19 10/19/19 History Tamsulosin HCl [Flomax] 0.4 mg PO HS 10/19/19 10/19/19 History - History PMHx: Hemorrhagic CVA x 3, epilepsy, Afib, anxiety, MDD, skin malignancy s/p excision PSHx: Skin excision Social: Patient lives at home with his of 50+ years. Denies alcohol, tobacco or drug use. - Review of Systems General: denies: fever/chills, fatigue Eyes: denies: eye pain, vision changes (-acute, hx of chronic) ENT: denies: nasal congestion, rhinorrhea Respiratory: denies: cough, congestion, shortness of breath Cardiovascular: denies: chest pain, palpitation, edema Gastrointestinal: denies: nausea (Nausea and vomiting x 1 yesterday. None today) , vomiting Genitourinary: reports: incontinence (x 1), dysuria. denies: polyuria Skin: denies: rashes, jaundice Musculoskeletal: denies: pain, arthritis/arthralgias Neurological: denies: numbness, syncope, seizure, weakness Psychological: denies: anxiety, depression - Vital signs BP: [111/68] HR: [87] RR: [18] Tmax: [99] Pox: [94]% on [RA] Wt: [70.8kg] - Physical Exam Constitutional: NAD, awake, alert and oriented HEENT: normocephalic and atraumatic, EOMI, no scleral icterus, grossly normal hearing, MMM -HEENT: Pupils equal and round. Right pupil less reactive to light than left. Neck: supple, FROM, trachea midline Chest: no-tender to palpation, no lesions Heart: normal S1/S2, pulses present, no edema -Heart: Irregularly irregular Lungs: CTAB, no respiratory distress, no wheezing Abdomen: soft, non-tender, bowel sounds present -Abdomen: Mild bladder distention noted Musculoskeletal: normal structure, normal tone, ROM grossly normal Neurological: no focal deficit, CN II-XII intact, normal sensation, DTRs 2+ -Neurological: Strength 5/5. DTRs 2+. Skin: no rash/lesions, good turgor Heme/Lymphatic: no unusual bruising or bleeding, no purpura Psychiatric: normal mood and affect -Psychiatric: Patient is oriented to person, place, time and situation. Able to recite birthday correctly. Believes [place] Shah is the president. FMR H&P: Results - Labs Result Diagrams: 10/20/19 04:52 10/20/19 04:52 Lab results: WBC 5.9 thou/uL (4.8-10.8) 07/10/20 11:52 Hgb 12.7 g/dL (14.0-18.0) L 10/19/19 11:52 Hct 39.4 % (42.0-52.0) L 10/19/19 11:52 MCV 89.7 fL (78.0-98.0) 10/19/19 11:52 Plt Count 175 thou/uL (130-400) 10/19/19 11:52 Neutrophils % 69.7 % (42.0-75.0) 10/19/19 11:52 Sodium 135 mmol/L (136-145) L 10/19/19 11:52 Potassium 4.1 mmol/L (3.5-5.1) 10/19/19 11:52 Chloride 102 mmol/L (98-107) 10/19/19 11:52 Carbon Dioxide 28 mmol/L (23-31) 10/19/19 11:52 BUN 13 mg/dL (8.4-25.7) 10/19/19 11:52 Creatinine 1.02 mg/dL (0.7-1.3) 10/19/19 11:52 Glucose 108 mg/dL (83-110) 10/19/19 11:52 Calcium 8.9 mg/dL (7.8-10.44) 10/19/19 11:52 Total Bilirubin 0.8 mg/dL (0.2-1.2) 10/19/19 11:52 AST 12 U/L (5-34) 10/19/19 11:52 ALT 9 U/L (8-55) 10/19/19 11:52 Alkaline Phosphatase 63 U/L (40-110) 10/19/19 11:52 Ammonia 29 umol/L (18-72) 10/19/19 11:52 Creatine Kinase 97 U/L (30-200) 10/19/19 11:52 Serum Total Protein 5.7 g/dL (5.8-8.1) L 10/19/19 11:52 Albumin 3.7 g/dL (3.4-4.8) 10/19/19 11:52 Lipase 39 U/L (8-78) 10/19/19 11:52 Urine Ketones Negative mg/dL (Negative) 10/19/19 11:42 Urine Blood Trace (Negative) A 10/19/19 11:42 Urine Nitrite Negative (Negative) 10/19/19 11:42 Ur Leukocyte Esterase Negative Johnathan/uL (Negative) 10/19/19 11:42 Urine RBC 4-6 HPF (0-3) A 10/19/19 11:42 Urine WBC 0-3 HPF (0-3) 10/19/19 11:42 Ur Squamous Epith Cells None Seen HPF (0-3) 10/19/19 11:42 Urine Bacteria None Seen HPF (None Seen) 10/19/19 11:42 - EKG Interpretation EKG: HR 88, Afib, no STEMI FMR H&P: A/P - Problem List (1) Cerebral parenchymal hemorrhage Current Visit: Yes Status: Acute Code(s): I61.9 - NONTRAUMATIC INTRACEREBRAL HEMORRHAGE, UNSPECIFIED (2) Major depressive disorder Current Visit: Yes Status: Acute Code(s): F32.9 - MAJOR DEPRESSIVE DISORDER , SINGLE EPISODE, UNSPECIFIED (3) Seizure disorder Current Visit: No Status: Chronic Code(s): G40.909 - EPILEPSY, UNSP, NOT INTRACTABLE, WITHOUT STATUS EPILEPTICUS (4) Anxiety Current Visit: No Status: Acute Code(s): F41.9 - ANXIETY DISORDER, UNSPECIFIED (5) Atrial fibrillation Current Visit: No Status: Acute Code(s): I48.91 - UNSPECIFIED ATRIAL FIBRILLATION (6) Vitamin D deficiency Current Visit: No Status: Acute Code(s): E55.9 - VITAMIN D DEFICIENCY, UNSPECIFIED (7) BPH (benign prostatic hyperplasia) Current Visit: No Status: Chronic Code(s): N40.0 - BENIGN PROSTATIC HYPERPLASIA WITHOUT LOWER URINRY TRACT SYMP (8) Blindness Current Visit: No Status: Chronic Code(s): H54.0 - BLINDNESS, BOTH EYES * DO NOT USE * (9) History of cerebrovascular accident Current Visit: No Status: Chronic Code(s): Z86.73 - PRSNL HX OF TIA (TIA), AND CEREB INFRC W/O RESID DEFICITS - Plan 1. Encephalopathy 2/2 suspected new onset parenchymal hemorrhage Increased confusion and assistance with ADL x 3 days. 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 No recent fall. GCS 15 in the ED. Vitals have remained stable. No acute focal deficits noted on exam. A&Ox4. CT Brain showed a small parenchymal hemorrhage at the left temporal lobe. Patient admitted to stroke unit. He passed dysphagia screening. -Vitals Q4H -Neuro check Q2H -NIH score QShift -Daily BMP, CBC -Elevated HOB 30 degrees -Strict I&Os -Continue home dose Keppra -Repeat CT brain in am -F/u neuro consult -F/u neurosurgery consult 2. Afib No anticoagulation due to hx of hemorrhagic CVAs. Patient is being evaluated for possible ablation. -SCDs placed -Continue home meds 3. Hx hemorrhagic CVA x 3 Patient will not be placed on anticoagulation. Chronic brain changes noted on brain CT 10/18. -Management per above 4. Urinary retention 2/2 BPH Patient reports increased retention and incontinence x 1. UA was WNL. -Bladder scan 5. Epilepsy -Continue home dose Keppra -Monitor 6. Major Depressive Disorder -Continue home med 7. Anxiety -Continue home med 8. HLD -Continue home med PCP: Giselle Wihtt Code: Full PPx: SCDs Dispo: Home pending stable vitals and neuro checks FMR H&P: Upper Level - Plan Date/Time: 10/19/19 1513 IRod DO, have evaluated this patient and agree with findings/plan as outlined by lab intern resident. Pertinent changes/additions are listed here. 74 yo male w pmhx of ICH presents with ams Pt has dementia and at baseline is AOx1-2, reports he was unable to stand up earlier today when she called ems. No reports of complaints prior to this episode, on my exam he denies any symptoms besides having to urinate. He was given a L of NS in ED, CT revealed parenchymal hemorrhage without mass effect or midline shift. VSS, labs wnl. Strength 5/5 in all extremities, CN II-XII intact, no changes in sensation or ROM. Abd NTTP, irregularly irregular rhythm, lungs CTAB. Regarding his ICH we will admit him to stroke for neuro/cv monitoring and repeat imaging. His blood pressure is currently stable, but will add medications to keep SBP below 140. Neurosurgery consulted from ED, appreciate recs. Obtain urinalysis. Please see lab intern note for mgmt. of chronic issues.
--- NOTE | 2019-10-19 15:51 | PDOC.EVN ---
Addendum - Attending - Attending Attestation Date/Time: 10/19/19 1549 I personally evaluated the patient and discussed the management with Dr. Castellanos/Ham. I agree with the History, Examination, Assessment and Plan documented in the H& P with any addition or exceptions noted below. Patient with history of hemorrhagic CVA history and longstanding epilepsy and Afib NOT on OAC here for 2 days of altered mentation. reports that patient has seemed to have difficulties with finding things around the house and completing his ADLs, which is a change in baseline. He has also been a little more unsteady. Vitals stable, lab evaluation overall stable and at his baseline. CT showed small area of new hemorrhage suggestive of recurrent hCVA. Fortunately his BP is well controlled at this time. Patient will be admitted for encephalopathy 2/2 suspect new onset recurrent hCVA. We will also complete encephalopathy workup to ensure there are no other contributing factors. Infection workup. Monitor for urinary retention. Therapy services, Neuro, and NSGY consults.
--- NOTE | 2019-10-19 18:01 | CON ---
NEUROLOGY CONSULTATION DATE OF CONSULTATION: 10/19/2019 REASON FOR CONSULTATION: Altered mental status. HISTORY OF PRESENT ILLNESS: Mr. Robbins is a 74-year-old male with history significant for hemorrhagic CVA, atrial fibrillation, seizure disorder, anxiety, major depression, brought by the because of altered mental status according to the , and the patient is unable to provide the history. The history is taken from review of the medical records. Per , he has increased confusion and he was unable to perform his ADLs for the last 3 days. He also has an episode of incontinence. There was also an episode of chest pain last night, which resolved on its own and one episode of vomiting. The patient denies any nausea, headache, vision changes, focal weakness, focal paresthesias, vertigo, blurred vision, or loss of vision associated with this episode. In the emergency room, head CT was done, which showed small parenchymal hemorrhage in the left temporal lobe. He was admitted for further evaluation. ALLERGIES: NO KNOWN DRUG ALLERGIES. PAST MEDICAL HISTORY: Hemorrhagic CVA three times, anxiety, atrial fibrillation , epilepsy, major depressive disorder, skin carcinoma. PAST SURGICAL HISTORY: Skin excision. SOCIAL HISTORY: , lives at his home with his . Denies alcohol or illegal drug use. REVIEW OF SYSTEMS: All 14 systems were reviewed and were negative except the pertinent positives and negatives mentioned in the HPI. FAMILY HISTORY: No family history of seizures. PHYSICAL EXAMINATION: VITAL SIGNS: Blood pressure 110/80, pulse 80, respiratory rate 18. GENERAL: The patient is alert, awake male, in no acute distress. CHEST: Clear. ABDOMEN: Soft. NECK: No carotid bruit. NEUROLOGICAL: Mental status; the patient is alert and oriented to person and place. He is unable to carry a full conversation, seems confused. Speech is clear. Cranial nerves 2 through 12 intact. Motor; muscle tone and bulk are normal. Strength 5/5 bilaterally. Reflexes 2+ bilaterally. Cerebellar intact. Gait deferred due to the patient's safety reasons. Allergies/Adverse Reactions Allergies Allergy/AdvReac Type Severity Reaction Status Date / Time No Known Allergies Allergy Verified 06/29/19 09:30 - Home Medications Medication Instructions Recorded Confirmed Type Atorvastatin Calcium [Lipitor] 40 mg PO HS #0 tab 10/15/15 10/12/18 Rx Docusate Sodium 100 mg PO DAILY 12/09/16 10/12/18 History Tamsulosin HCl [Flomax] 0.4 mg PO DAILY #30 cap 12/12/16 10/12/18 Rx levETIRAcetam [Keppra] 1,000 mg PO BID #60 tab 12/12/16 10/12/18 Rx Metoprolol Succinate 50 mg PO DAILY 10/13/18 10/13/18 History Potassium Chloride [Klor-Con M10] 10 meq PO BID-WM 10/13/18 10/13/18 History Sertraline HCl 50 mg PO DAILY 10/13/18 10/13/18 History Cholecalciferol [Vitamin D3] 1,000 units PO DAILY #30 tab 10/18/18 Rx Diltiazem CD [Cardizem CD] 120 mg PO DAILY #30 cap 10/18/18 Rx Metoprolol Succinate [Toprol XL] 50 mg PO DAILY #30 tab 10/18/18 Rx Digoxin [Lanoxin] 0.125 mg PO DAILY #30 tab 10/20/18 Rx Lab results: WBC 5.9 thou/uL (4.8-10.8) 10/19/19 11:52 Hgb 12.7 g/dL (14.0-18.0) L 10/19/19 11:52 Hct 39.4 % (42.0-52.0) L 10/19/19 11:52 MCV 89.7 fL (78.0-98.0) 10/19/19 11:52 Plt Count 175 thou/uL (130-400) 10/19/19 11:52 Neutrophils % 69.7 % (42.0-75.0) 10/19/19 11:52 Sodium 135 mmol/L (136-145) L 10/19/19 11:52 Potassium 4.1 mmol/L (3.5-5.1) 10/19/19 11:52 Chloride 102 mmol/L (98-107) 10/19/19 11:52 Carbon Dioxide 28 mmol/L (23-31) 10/19/19 11:52 BUN 13 mg/dL (8.4-25.7) 10/19/19 11:52 Creatinine 1.02 mg/dL (0.7-1.3) 10/19/19 11:52 Glucose 108 mg/dL (83-110) 10/19/19 11:52 Calcium 8.9 mg/dL (7.8-10.44) 10/19/19 11:52 Total Bilirubin 0.8 mg/dL (0.2-1.2) 10/19/19 11:52 AST 12 U/L (5-34) 10/19/19 11:52 ALT 9 U/L (8-55) 10/19/19 11:52 Alkaline Phosphatase 63 U/L (40-110) 10/19/19 11:52 Ammonia 29 umol/L (18-72) 10/19/19 11:52 Creatine Kinase 97 U/L (30-200) 10/19/19 11:52 Serum Total Protein 5.7 g/dL (5.8-8.1) L 10/19/19 11:52 Albumin 3.7 g/dL (3.4-4.8) 10/19/19 11:52 Lipase 39 U/L (8-78) 10/19/19 11:52 Urine Ketones Negative mg/dL (Negative) 10/19/19 11:42 Urine Blood Trace (Negative) A 10/19/19 11:42 Urine Nitrite Negative (Negative) 10/19/19 11:42 Ur Leukocyte Esterase Negative Johnathan/uL (Negative) 10/19/19 11:42 Urine RBC 4-6 HPF (0-3) A 10/19/19 11:42 Urine WBC 0-3 HPF (0-3) 10/19/19 11:42 Ur Squamous Epith Cells None Seen HPF (0-3) 10/19/19 11:42 Urine Bacteria None Seen HPF (None Seen) 10/19/19 11:42 - EKG Interpretation EKG: Afib DATA REVIEWED: I reviewed the labs which were significant for anemia with hemoglobin 12.7 and hematocrit 39.4, and hyponatremia at 135. Rest is unremarkable. I reviewed the head CT which shows a small parenchymal hemorrhage. - Problem List (1) Cerebral parenchymal hemorrhage Current Visit: Yes Status: Acute Code(s): I61.9 - NONTRAUMATIC INTRACEREBRAL HEMORRHAGE, UNSPECIFIED (2) Major depressive disorder Current Visit: Yes Status: Acute Code(s): F32.9 - MAJOR DEPRESSIVE DISORDER , SINGLE EPISODE, UNSPECIFIED (3) Seizure disorder Current Visit: No Status: Chronic Code(s): G40.909 - EPILEPSY, UNSP, NOT INTRACTABLE, WITHOUT STATUS EPILEPTICUS (4) Anxiety Current Visit: No Status: Acute Code(s): F41.9 - ANXIETY DISORDER, UNSPECIFIED (5) Atrial fibrillation Current Visit: No Status: Acute Code(s): I48.91 - UNSPECIFIED ATRIAL FIBRILLATION (6) Vitamin D deficiency Current Visit: No Status: Acute Code(s): E55.9 - VITAMIN D DEFICIENCY, UNSPECIFIED (7) BPH (benign prostatic hyperplasia) Current Visit: No Status: Chronic Code(s): N40.0 - BENIGN PROSTATIC HYPERPLASIA WITHOUT LOWER URINRY TRACT SYMP (8) Blindness Current Visit: No Status: Chronic Code(s): H54.0 - BLINDNESS, BOTH EYES * DO NOT USE * (9) History of cerebrovascular accident Current Visit: No Status: Chronic Code(s): Z86.73 - PRSNL HX OF TIA (TIA), AND CEREB INFRC W/O RESID DEFICITS ASSESSMENT AND PLAN: Mr. Moustapah Robbins is consulted for altered mental status, most likely secondary to recent bleed which showed small parenchymal hemorrhage in the left temporal lobe on head CT. Consider MRI of the brain to rule out acute process. Strict control of BP. Neurochecks every 2 hours. Continue home medications. Continue Keppra for seizure prophylaxis. Observe seizure precautions.Telemetry. Consider cardiology input regarding atrial fibrillation, PT/OT/speech. Consider Neurosurgery input regarding bleed. We will continue to follow. No anticoagulation at this time due to bleed. We will continue to follow. Thank you for the consult. Job ID: [id number] MTDD
[2019-10-19] MEDS: levETIRAcetam 500 MG TAB PO SCH (21:53)
[2019-10-20 05:21] LABS: #Basophils 0.1 thou/uL (0.0-0.2); #Eosinphils 0.3 thou/uL (0.0-0.7); #Lymphocytes 1.5 thou/uL (1.20-3.40); #Monocytes 0.6 thou/uL (0.11-0.59); #Neutrophils 2.2 thou/uL (1.40-6.50); %Basophils 1.1 % (0.0-1.0); %Eosinophils 5.5 % (0.0-10.0); %Lymphocytes 32.4 % (21.0-51.0); %Monocytes 12.2 % (0.0-10.0); %Neutrophils 48.8 % (42.0-75.0); Hemoglobin 12.6 g/dL (14.0-18.0); Mean Corpuscular HGB CONC 31.7 g/dL (32.0-36.0); Mean Corpuscular Hemoglobin 28.3 pg (27.0-31.0); Mean Corpuscular Volume 89.1 fL (78.0-98.0); Platelet Count 160 thou/uL (130-400); RBC Distribution Width 13.5 % (11.5-14.5); Red Blood Cell (RBC) Count 4.47 mill/uL (4.70-6.10); White Blood Cell (WBC) Count 4.6 thou/uL (4.8-10.8)
[2019-10-20 05:47] LABS: Anion Gap 9 mmol/L (10-20); BUN (Urea Nitrogen) 11 mg/dL (8.4-25.7); Calc. Creatinine Clearance 69 mL/min (70-130); Calcium 8.6 mg/dL (7.8-10.44); Carbon Dioxide 30 mmol/L (23-31); Chloride 103 mmol/L (98-107); Estimated GFR-MDRD 77; Glucose 90 mg/dL (83-110); Potassium 4.3 mmol/L (3.5-5.1); Sodium 138 mmol/L (136-145)
[2019-10-20] MEDS ORDERED: Docusate 100 MG CAP PO PRN (06:21)
--- NOTE | 2019-10-20 06:25 | PDOC.FM ---
- Subjective Subjective: No acute events overnight. Patient states he feels well with no complaints. He denies any change from baseline in regards to his vision, sensation or muscle strength. He denies any focal deficits. - Objective MAR Reviewed: Yes Vital Signs & Weight: Vital Signs (12 hours) Temp Pulse Resp BP Pulse Ox 10/20/19 05:01 97.8 F 70 18 146/84 H 96 10/20/19 04:26 95 10/20/19 00:38 97.8 F 65 15 145/83 H 95 10/19/19 20:31 98.0 F 74 18 113/63 95 10/19/19 18:53 97 Weight Weight 73.936 kg Result Diagrams: 10/20/19 04:52 10/20/19 04:52 Phys Exam - Physical Examination Constitutional: NAD HEENT: moist MMs, sclera anicteric Neck: supple, full ROM Respiratory: no wheezing, clear to auscultation bilateral Cardiovascular: no significant murmur Irreguarly irregular Gastrointestinal: soft, positive bowel sounds Musculoskeletal: no edema, pulses present Neurological: non-focal, normal sensation, moves all 4 limbs Strength 5/5. No slurred speech. Lymphatic: no nodes Psychiatric: normal affect, A&O x 3 Skin: no rash, normal turgor Dx/Plan (1) Cerebral parenchymal hemorrhage Code(s): I61.9 - NONTRAUMATIC INTRACEREBRAL HEMORRHAGE, UNSPECIFIED Status: Acute (2) Major depressive disorder Code(s): F32.9 - MAJOR DEPRESSIVE DISORDER, SINGLE EPISODE, UNSPECIFIED Status : Acute (3) Seizure disorder Code(s): G40.909 - EPILEPSY, UNSP, NOT INTRACTABLE, WITHOUT STATUS EPILEPTICUS Status: Chronic (4) Anxiety Code(s): F41.9 - ANXIETY DISORDER, UNSPECIFIED Status: Acute (5) Atrial fibrillation Code(s): I48.91 - UNSPECIFIED ATRIAL FIBRILLATION Status: Acute (6) Vitamin D deficiency Code(s): E55.9 - VITAMIN D DEFICIENCY, UNSPECIFIED Status: Acute (7) BPH (benign prostatic hyperplasia) Code(s): N40.0 - BENIGN PROSTATIC HYPERPLASIA WITHOUT LOWER URINRY TRACT SYMP Status: Chronic (8) 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 Encephalopathy 2/2 suspected new onset parenchymal hemorrhage Increased confusion and assistance with ADL x 3 days. 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 No recent fall. GCS 15 in the ED. Vitals have remained stable. No acute focal deficits noted on exam. A&Ox4. CT Brain showed a small parenchymal hemorrhage at the left temporal lobe. Patient admitted to stroke unit. He passed dysphagia screening. Neurology and neurosurgery consulted. Repeat CT Brain on 10/19 showed stable small L posterior temporal intraparenchymal hematoma. -Vitals Q4H -Neuro check Q2H -NIH score QShift -Daily BMP, CBC -Elevated HOB 30 degrees -Strict I&Os -Strict BP control -Continue home dose Keppra -MRI in the am -F/u neurology and neurosurgery recs 2. Afib No anticoagulation due to hx of hemorrhagic CVAs. Patient is being evaluated for possible ablation. -SCDs placed -Continue home meds 3. Hx hemorrhagic CVA x 3 Patient will not be placed on anticoagulation. Chronic brain changes noted on brain CT 10/18. -Management per above 4. Urinary retention 2/2 BPH Patient reports increased retention and incontinence x 1. UA was showed microscopic hematuria. Renal US ordered to investigate due to hx BPH and age. -Bladder scan -Renal US 5. Epilepsy -Continue home dose Keppra -Monitor 6. Major Depressive Disorder -Continue home med 7. Anxiety -Continue home med 8. HLD -Continue home med PCP: Giselle Whitt Code: Full PPx: SCDs Dispo: Home pending stable vitals and neuro checks Addendum - Attending - Attending Attestation Date/Time: 10/20/19 9709 I personally evaluated the patient and discussed the management with Dr. Castellanos. I agree with the History, Examination, Assessment and Plan documented above with any addition or exceptions noted below. Patient reports feeling well, eating breakfast this morning. Neuro on board for his recurrent hCVA. NSGY consulted. CT obtained and will monitor for progression. Continue post CVA care including therapy services, avoid anticoagulation.
[2019-10-20] MEDS ORDERED: Melatonin 3 MG TAB PO PRN (06:27)
--- NOTE | 2019-10-20 07:42 | CT ---
PRELIMINARY REPORT/[facility]/EMERGENCY AFTER HOURS PROCEDURE: EXAM: CT Head Without Intravenous Contrast. CLINICAL HISTORY: F/u Intracerebral hemorrhagic stroke TECHNIQUE: Axial computed tomography images of the head/brain without intravenous contrast. COMPARISON: CT\IN\SR - CT BRAIN WO CON - 10/19/2019 11:45 AM CDT FINDINGS: BRAIN: Focal intraparenchymal hemorrhage in the posterior superior left temporal lobe is again identified me asuring 0.6 x 1 cm. This has been stable since her prior study. Chronic microvascular ischemic dise ase is seen. Old infarct with encephalomalacia seen in the left occipital lobe. Generalized volume loss is identified. No extra-axial hemorrhage is identified. No mass lesion. No CT evidence for acu te territorial infarct. No midline shift or extra-axial collection. VENTRICLES: No hydrocephalus. ORBITS: The orbits are unremarkable. SINUSES AND MASTOIDS: The paranasal sinuses and mastoid air cells are clear. SOFT TISSUES: No significant facial or scalp soft tissue swelling evident. No radiopaque foreign body is seen. BONES: No acute skull fracture. IMPRESSION: Stable appearing focal intraparenchymal hemorrhage in the left posterior superior temporal lobe. Chronic microvascular ischemic disease. ELECTRONICALLY SIGNED BY: Elton Contreras MD Oct 20, 2019 6:30:22 AM CDT This report is intended for review by the ordering physician only, in accordance of law. If you recei ve this report in error, please call [facility] at [phone]. FINAL REPORT EMERGENCY AFTER HOURS BRAIN CT WITHOUT IV CONTRAST 6:15 AM 10/20/2019 COMPARISON: 10/19/2019 IMPRESSION: Stable small left posterior temporal intraparenchymal hematoma. Stable atrophy and encephalomalacia a nd chronic white matter ischemic changes. This report is in agreement with preliminary report by [facility]. POS: [facility]
[2019-10-20] MEDS: Potassium Chloride 10 MEQ TAB PO SCH ×2 (09:18→17:35)
[2019-10-20] MEDS: levETIRAcetam 500 MG TAB PO SCH ×2 (09:18→21:02)
--- NOTE | 2019-10-20 11:58 | PRG ---
DATE OF SERVICE: 10/20/2019 Mr. Robbins has longstanding recurrent ischemic infarcts and hemorrhages in the past. He presented yesterday with a very small left temporal hemorrhage. This is already resolving on his repeat head CT this morning. No role for neurosurgical intervention. He is not on blood thinners given his hemorrhagic risk. He probably should not be. Neurologically, he is at his baseline. I will sign off. Job ID: [id number]
--- NOTE | 2019-10-20 12:58 | MRI ---
MRI BRAIN NONCONTRAST: DATE: 10/20/2019 HISTORY: 74-year-old male with CVA. COMPARISON: MRI of 12/10/2016 FINDINGS: Moderately large regions of encephalomalacia and gliosis with heavy gyriform hemosiderin staining inv olving bilateral occipital lobes and contiguously involving bilateral adjacent posterior parietal lobes. These represent old bilateral [employer] infarctions with prior hemorrhagic conversions. Similar-appearing moderate sized region of encephalomalacia and gliosis with hemorrhagic staining in the operculum of the right temporal lobe, consistent with old right MCA territory infarction with prior hemorrhagic conversion. Small strip of encephalomalacia and gliosis with hemosiderin stain involving right precentral gyrus ( motor cortex) representing small old infarction in the right MCA territory, with prior hemorrhagic conversion. Very large number of punctate round hemosiderin stains in bilateral temporal lobes, bilateral parieta l lobes, and right lower posterior lateral frontal lobe, representing innumerable microhemorrhages: Evidence for amyloid angiopathy. Diffuse moderate chronic ischemic white matter changes of the cerebral periventricular white matter, galaviz radiata, and centrum semiovale. Diffuse brain parenchymal atrophy. Mild to moderate ventriculomegaly involving lateral and third ventricles on ex vacuo basis due to bra in atrophy. No mass effect, midline shift, or extra-axial fluid collection. No restricted diffusion to indicate any acute infarction. All of the above findings are unchanged. There is an approximately 1 x 0.7 cm T1 intermediate and T2 intermediate lesion at the posterior late ral aspect of left temporal lobe parenchyma, surrounded by small rim of vasogenic edema, with total lesion including the edema measuring 1.5 x 1.5 cm , associated with focal magnetic susceptibility blo oming artifact on gradient echo sequence, which is new since the prior MRI. This is the only interval change. This corresponds to the small focal intra-axial hemorrhage which first appeared on CT (was not present on 10/12/2018 CT). IMPRESSION: 1) new small, acute or subacute intra-axial hemorrhage at the posterior lateral aspect of left tempor al lobe. This is probably a new hemorrhage due to the patient's cerebral amyloid angiopathy. This is the only interval change since prior MRI. 2) very large number of tiny remote hemorrhages in the bilateral parietal, temporal, and occipital lo bes: Evidence for cerebral amyloid angiopathy. 3) moderately large bilateral old infarctions in bilateral posterior cerebral artery territories with prior hemorrhagic conversions. 4) moderate sized old infarction in right middle cerebral artery temporal lobe with prior hemorrhagic conversion. 5) diffuse brain atrophy and moderate chronic ischemic white matter changes due to small vessel disea se.
--- NOTE | 2019-10-20 17:49 | ULT ---
RENAL ULTRASOUND 10/10/19 COMPARISON: None. HISTORY: Microscopic hematuria. TECHNIQUE: Multiplanar tam scale sonographic imaging of the kidneys and urinary bladder obtained. FINDINGS: Left kidney measures 8.7 x 5.1 x 5.3 cm. Right kidney measures 9.4 x 4.6 x 6.0 cm. No hydronephrosis, stone, or solid renal mass is appreciated on either side. Prevoid urinary bladder volume is 557 mL. There is a probable small cyst in the mid pole of the left kidney measuring 1.4 x 1.0 x 0.7 cm. IMPRESSION: No acute findings. POS: [facility]
[2019-10-20] MEDS: Tamsulosin HCl 0.4 MG CAP PO SCH (21:02)
[2019-10-20] MEDS: Atorvastatin Calcium 40 MG TAB PO SCH (21:03)
[2019-10-20] MEDS: Digoxin 0.125 MG TAB PO SCH (21:03)
--- NOTE | 2019-10-21 05:56 | PDOC.FM ---
- Subjective Subjective: Patient reports chronic vision changes and mild abdominal pain. Last BM this morning. He denies headache, chest pain, SOB, urinary incontinence and dysuria. No focal deficit noted. - Objective MAR Reviewed: Yes Vital Signs & Weight: Vital Signs (12 hours) Temp Pulse Resp BP Pulse Ox 10/21/19 04:50 97.6 F 56 L 20 163/88 H 99 10/20/19 23:00 98.0 F 70 18 140/83 95 10/20/19 21:03 66 10/20/19 19:00 98.3 F 86 18 139/82 95 Weight Weight 69.672 kg I&O: 10/19/19 10/20/19 10/21/19 06:59 06:59 06:59 Intake Total 1005 Output Total 1325 Balance -320 Result Diagrams: 10/20/19 04:52 10/20/19 04:52 Phys Exam - Physical Examination Constitutional: NAD HEENT: moist MMs, sclera anicteric Neck: supple, full ROM Respiratory: no wheezing, clear to auscultation bilateral Cardiovascular: RRR, no significant murmur Gastrointestinal: soft, positive bowel sounds Musculoskeletal: no edema, pulses present Neurological: non-focal, normal sensation, moves all 4 limbs Strength 5/5 in upper and lower extremities Lymphatic: no nodes Psychiatric: normal affect, A&O x 3 Skin: no rash, normal turgor Dx/Plan (1) Cerebral parenchymal hemorrhage Code(s): I61.9 - NONTRAUMATIC INTRACEREBRAL HEMORRHAGE, UNSPECIFIED Status: Acute (2) Major depressive disorder Code(s): F32.9 - MAJOR DEPRESSIVE DISORDER, SINGLE EPISODE, UNSPECIFIED Status : Acute (3) Seizure disorder Code(s): G40.909 - EPILEPSY, UNSP, NOT INTRACTABLE, WITHOUT STATUS EPILEPTICUS Status: Chronic (4) Anxiety Code(s): F41.9 - ANXIETY DISORDER, UNSPECIFIED Status: Acute (5) Atrial fibrillation Code(s): I48.91 - UNSPECIFIED ATRIAL FIBRILLATION Status: Acute (6) Vitamin D deficiency Code(s): E55.9 - VITAMIN D DEFICIENCY, UNSPECIFIED Status: Acute (7) BPH (benign prostatic hyperplasia) Code(s): N40.0 - BENIGN PROSTATIC HYPERPLASIA WITHOUT LOWER URINRY TRACT SYMP Status: Chronic (8) 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 Encephalopathy 2/2 suspected new onset parenchymal hemorrhage Increased confusion and assistance with ADL x 3 days. 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 No recent fall. GCS 15 in the ED. Vitals have remained stable. No acute focal deficits noted on exam. A&Ox4. CT Brain showed a small parenchymal hemorrhage at the left temporal lobe. Patient admitted to stroke unit. He passed dysphagia screening. Neurology and neurosurgery consulted. Repeat CT Brain on 10/19 showed stable small L posterior temporal intraparenchymal hematoma. MRI showed acute vs. subacute intra-axial hemorrhage, post lateral aspect of L temporal lobe. Neurosurgery recommended no intervention. PT recommended inpatient rehab. BP increased to 140s systolic with one episode of 160s. -Vitals Q4H -Neuro check Q2H -NIH score QShift -Daily BMP, CBC -Elevated HOB 30 degrees -Strict I&Os -Continue home dose Keppra -Start lisinopril 10mg PO daily -F/u neurology recs 2. Afib No anticoagulation due to hx of hemorrhagic CVAs. Patient is being evaluated for possible ablation. -SCDs placed -Continue home meds 3. Hx hemorrhagic CVA x 3 Patient will not be placed on anticoagulation. Chronic brain changes noted on brain CT 10/18. -Management per above 4. Urinary retention 2/2 BPH Patient reports increased retention and incontinence x 1. UA was showed microscopic hematuria. Renal US showed no acute process. -Bladder scan -Repeat UA outpatient to evaluate for transient vs chronic microscopic hematuria 5. Epilepsy -Continue home dose Keppra -Monitor 6. Major Depressive Disorder -Continue home med 7. Anxiety -Continue home med 8. HLD -Continue home med PCP: Giselle Whitt Code: Full PPx: SCDs Dispo: Inpatient rehab pending stable vitals and neuro checks Addendum - Attending - Attending Attestation Date/Time: 10/21/19 4326 I personally evaluated the patient and discussed the management with Dr. Castellanos. I agree with the History, Examination, Assessment and Plan documented above with any addition or exceptions noted below. Patient resting comfortably. He is having some elevated BP and will augment his HTN regimen today. Continue therapy and work on rehab placement.
[2019-10-21] MEDS: levETIRAcetam 500 MG TAB PO SCH ×2 (09:46→22:43)
[2019-10-21] MEDS: Potassium Chloride 10 MEQ TAB PO SCH ×2 (09:47→17:54)
[2019-10-21] MEDS: hydrALAZINE 20 MG/ML VIAL SLOW IVP PRN (22:42)
[2019-10-21] MEDS: Atorvastatin Calcium 40 MG TAB PO SCH (22:43)
[2019-10-21] MEDS: Digoxin 0.125 MG TAB PO SCH (22:43)
[2019-10-21] MEDS: Tamsulosin HCl 0.4 MG CAP PO SCH (22:44)
[2019-10-22] MEDS: hydrALAZINE 20 MG/ML VIAL SLOW IVP PRN (05:11)
[2019-10-22 05:29] VITALS: BMI 22.4
--- NOTE | 2019-10-22 06:27 | PDOC.FM ---
- Subjective Subjective: Mr. Robbins is despondent this morning. He states he wishes he were "so that he would not be a bother anymore". He states he feels well. - Objective MAR Reviewed: Yes Vital Signs & Weight: Vital Signs (12 hours) Temp Pulse Resp BP Pulse Ox 10/22/19 05:11 102 H 10/22/19 04:00 97.8 F 102 H 18 143/83 H 96 10/22/19 03:40 96 10/21/19 23:31 97.6 F 85 18 138/94 H 96 10/21/19 22:43 70 10/21/19 22:42 88 10/21/19 20:00 97.3 F L 88 18 158/90 H 93 L Weight Weight 66.723 kg I&O: 10/20/19 10/21/19 10/22/19 06:59 06:59 06:59 Intake Total 1005 720 Output Total 1325 350 Balance -320 370 Result Diagrams: 10/20/19 04:52 10/20/19 04:52 Phys Exam - Physical Examination Constitutional: NAD HEENT: moist MMs Neck: supple, full ROM Respiratory: no wheezing, no rales, no rhonchi, clear to auscultation bilateral Cardiovascular: RRR, no significant murmur Gastrointestinal: soft, non-tender Musculoskeletal: no edema Neurological: non-focal, moves all 4 limbs Psychiatric: normal affect, A&O x 3 Skin: no rash, normal turgor Dx/Plan (1) Cerebral parenchymal hemorrhage Code(s): I61.9 - NONTRAUMATIC INTRACEREBRAL HEMORRHAGE, UNSPECIFIED Status: Acute (2) Intracranial hemorrhage Code(s): I62.9 - NONTRAUMATIC INTRACRANIAL HEMORRHAGE, UNSPECIFIED Status: Acute (3) Major depressive disorder Code(s): F32.9 - MAJOR DEPRESSIVE DISORDER, SINGLE EPISODE, UNSPECIFIED Status : Acute (4) UTI (urinary tract infection) Status: Acute (5) Seizure disorder Code(s): G40.909 - EPILEPSY, UNSP, NOT INTRACTABLE, WITHOUT STATUS EPILEPTICUS Status: Chronic (6) Hyponatremia Code(s): E87.1 - HYPO-OSMOLALITY AND HYPONATREMIA Status: Resolved (7) Acute upper respiratory infection Code(s): J06.9 - ACUTE UPPER RESPIRATORY INFECTION, UNSPECIFIED Status: Acute (8) Altered mental status, unspecified Code(s): R41.82 - ALTERED MENTAL STATUS, UNSPECIFIED Status: Acute (9) Anxiety Code(s): F41.9 - ANXIETY DISORDER, UNSPECIFIED Status: Acute (10) BPH (benign prostatic hyperplasia) Code(s): N40.0 - BENIGN PROSTATIC HYPERPLASIA WITHOUT LOWER URINRY TRACT SYMP Status: Chronic (11) History of cerebrovascular accident Code(s): Z86.73 - PRSNL HX OF TIA (TIA), AND CEREB INFRC W/O RESID DEFICITS Status: Chronic - Plan Plan: Encephalopathy 2/2 suspected new onset parenchymal hemorrhage -Hx of hemorrhagic CVAs x 3 in past. -CT Brain showed a small parenchymal hemorrhage at the left temporal lobe. Repeat CT Brain on 10/19 showed stable small L posterior temporal intraparenchymal hematoma. MRI showed acute vs. subacute intra-axial hemorrhage , post lateral aspect of L temporal lobe. -Neurology and neurosurgery consulted. Neurosurgery recommended no intervention. -PT recommended inpatient rehab. Awaiting placement. -Start lisinopril 10mg PO daily, BP > 160. Atrial fibrillation -Anticoagulation contraindicated due to hx of hemorrhagic CVAs. -SCDs placed -Continue home meds Hx hemorrhagic CVA x 3 Patient will not be placed on anticoagulation. Chronic brain changes noted on brain CT 10/18. -Management per above Urinary retention 2/2 BPH -Patient reports increased retention and incontinence x 1. UA was showed microscopic hematuria. Renal US showed no acute process. -Will likely need outpatient urology follow up. Epilepsy -Continue home dose Keppra -Monitor Major Depressive Disorder -Continue home med Anxiety -Continue home med HLD -Continue home med PCP: Giselle Whitt Code: Full PPx: SCDs Dispo: Inpatient rehab pending stable vitals and neuro checks Addendum - Attending - Attending Attestation Date/Time: 10/22/19 6272 I personally evaluated the patient and discussed the management with Dr. Bullock. I agree with the History, Examination, Assessment and Plan documented above with any addition or exceptions noted below. Start lisinopril. Awaiting neurology recs. working on placement.
[2019-10-22] MEDS ORDERED: Lisinopril 10 MG TAB PO SCH (09:00)
[2019-10-22] MEDS: levETIRAcetam 500 MG TAB PO SCH ×2 (09:42→21:45)
[2019-10-22] MEDS: Potassium Chloride 10 MEQ TAB PO SCH ×2 (09:42→17:59)
--- NOTE | 2019-10-22 12:40 | PDOC.HOSPP ---
- Subjective Encounter Date: 10/22/19 Subjective: NEUROLOGY PROGRESS NOTE Patient alert, oriented and following commands appropriately. No acute events overnight. - Objective Vital Signs & Weight: Vital Signs (12 hours) Temp Pulse Pulse Pulse Resp BP BP 10/22/19 11:48 97.8 F 107 H 16 10/22/19 08:55 91 98 112/58 L 135/74 10/22/19 07:49 98.4 F 100 16 10/22/19 05:11 102 H 10/22/19 04:00 97.8 F 102 H 18 10/22/19 03:40 BP Pulse Ox 10/22/19 11:48 102/71 94 L 10/22/19 08:55 10/22/19 07:49 110/60 94 L 10/22/19 05:11 10/22/19 04:00 143/83 H 96 10/22/19 03:40 96 Weight Weight 147 lb 1.6 oz I&O: 10/21/19 10/22/19 10/23/19 06:59 06:59 06:59 Intake Total 1005 720 Output Total 1325 350 Balance -320 370 Result Diagrams: 10/20/19 04:52 10/20/19 04:52 Radiology Reviewed by me: Yes EKG Reviewed by me: Yes Hospitalist ROS - Review of Systems Constitutional: denies: fever, chills, sweats, weakness, malaise, other Eyes: denies: pain, vision change, conjunctivae inflammation, eyelid inflammation, redness, other ENT: denies: ear pain, ear discharge, nose pain, nose discharge, nose congestion , mouth pain, mouth swelling, throat pain, throat swelling, other Respiratory: denies: cough, dry, shortness of breath, hemoptysis, SOB with excertion, pleuritic pain, sputum, wheezing, other Cardiovascular: denies: chest pain, palpitations, orthopnea, paroxysmal noc. dyspnea, edema, light headedness, other Gastrointestinal: denies: nausea, vomiting, abdominal pain, diarrhea, constipation, melena, hematochezia, other Genitourinary: denies: dysuria, frequency, incontinence, hematuria, retention, other Musculoskeletal: denies: neck pain, shoulder pain, arm pain, back pain, hand pain, leg pain, foot pain, other Skin: denies: rash, lesions, mitchel, bruising, other Neurological: reports: confusion - Medication Medications: Active Medications Generic Name Dose Route Start Last Admin Trade Name Freq PRN Reason Stop Dose Admin Atorvastatin Calcium 40 mg 10/20/19 21:00 10/21/19 22:43 Lipitor PO 40 mg HS LORNA Administration Digoxin 0.125 mg 10/20/19 21:00 10/21/19 22:43 Lanoxin PO 0.125 mg HS LORNA Administration Hydralazine HCl 10 mg 10/21/19 21:04 10/22/19 05:11 Apresoline SLOW IVP 10 mg Q4H PRN Administration SBP >150 Levetiracetam 1,000 mg 10/19/19 21:00 10/22/19 09:42 Keppra PO 1,000 mg BID LORNA Administration Lisinopril 10 mg 10/22/19 09:00 10/22/19 09:42 Zestril PO 10 mg DAILY LORNA Administration Metoprolol Succinate 50 mg 10/20/19 09:00 10/22/19 09:42 Toprol Xl PO 50 mg DAILY LORNA Administration Potassium Chloride 10 meq 10/20/19 08:00 10/22/19 09:42 Klor-Con 10 PO 10 meq BID-WM LORNA Administration Sertraline HCl 50 mg 10/20/19 09:00 10/22/19 09:42 Zoloft PO 50 mg DAILY LORNA Administration Sodium Chloride 10 ml 10/19/19 15:01 10/21/19 22:42 Flush - Normal Saline IVF 10 ml PRN PRN Administration Saline Flush Tamsulosin HCl 0.4 mg 10/20/19 21:00 10/21/19 22:44 Flomax PO 0.4 mg HS LORNA Administration - Exam General Appearance: awake alert Eye: PERRL ENT: normocephalic atraumatic Neck: supple Heart: RRR Respiratory: CTAB Gastrointestinal: soft Extremities: no cyanosis Skin: normal turgor Neurological: no focal deficits, no new deficit Musculoskeletal: normal tone, normal strength, no muscle wasting Psychiatric: normal affect, normal behavior, A&O x 3, oriented to person, oriented to place, oriented to time Hosp A/P (1) Cerebral parenchymal hemorrhage Code(s): I61.9 - NONTRAUMATIC INTRACEREBRAL HEMORRHAGE, UNSPECIFIED Status: Acute (2) Major depressive disorder Code(s): F32.9 - MAJOR DEPRESSIVE DISORDER, SINGLE EPISODE, UNSPECIFIED Status : Acute (3) UTI (urinary tract infection) Status: Acute (4) Seizure disorder Code(s): G40.909 - EPILEPSY, UNSP, NOT INTRACTABLE, WITHOUT STATUS EPILEPTICUS Status: Chronic (5) Hyponatremia Code(s): E87.1 - HYPO-OSMOLALITY AND HYPONATREMIA Status: Resolved (6) Altered mental status, unspecified Code(s): R41.82 - ALTERED MENTAL STATUS, UNSPECIFIED Status: Acute - Plan PT/OT, speech therapy, DVT proph w/SCDs 74 year old male consulted for altered mental status which seems to be secondary to acute hemorrhage . - MRI brain reviewed which did not reveal acute infarction but positive for acute bleed. CT Brain showed a small parenchymal hemorrhage at the left temporal lobe. Neurosurgery recommended no surgical intervention. Telemetry- atrial fibrillation, Hold anticoagulation hemorrhagic CVAs. Neurochecks every 4 hours. Strict control of BP. Recommend EEG to assess interictal activity. Observe seizure precautions. Continue home dose of Keppra. Continue home medications. Ativan 2 mg IV for seizure greater than 2 minutes, Continue medial management per primary team. PT/OT Awaiting rehab placement. CM on board. Plan discussed with the patient and the floor team during stroke rounds.
[2019-10-22] MEDS: Digoxin 0.125 MG TAB PO SCH (21:43)
[2019-10-22] MEDS: Atorvastatin Calcium 40 MG TAB PO SCH (21:43)
[2019-10-22] MEDS: Tamsulosin HCl 0.4 MG CAP PO SCH (21:45)
--- NOTE | 2019-10-23 05:51 | PDOC.FM ---
- Subjective Subjective: Patient is in better spirits this morning. He is eager for d/c. - Objective MAR Reviewed: Yes Vital Signs & Weight: Vital Signs (12 hours) Temp Pulse Resp BP Pulse Ox 10/23/19 04:00 97.6 F 79 16 98/56 L 96 10/23/19 00:42 97.6 F 67 12 102/68 96 10/22/19 21:43 75 10/22/19 20:26 98.1 F 63 14 100/65 96 Weight Weight 66.723 kg I&O: 10/21/19 10/22/19 10/23/19 06:59 06:59 06:59 Intake Total 1005 720 220 Output Total 1325 350 105 Balance -320 370 115 Result Diagrams: 10/20/19 04:52 10/20/19 04:52 Phys Exam - Physical Examination Constitutional: NAD HEENT: moist MMs Neck: supple, full ROM Respiratory: no wheezing, no rales, no rhonchi, clear to auscultation bilateral Cardiovascular: RRR, no significant murmur Gastrointestinal: soft, non-tender Musculoskeletal: no edema Neurological: non-focal, moves all 4 limbs Psychiatric: normal affect, A&O x 3 Skin: no rash, normal turgor Dx/Plan (1) Cerebral parenchymal hemorrhage Code(s): I61.9 - NONTRAUMATIC INTRACEREBRAL HEMORRHAGE, UNSPECIFIED Status: Acute (2) Intracranial hemorrhage Code(s): I62.9 - NONTRAUMATIC INTRACRANIAL HEMORRHAGE, UNSPECIFIED Status: Acute (3) Major depressive disorder Code(s): F32.9 - MAJOR DEPRESSIVE DISORDER, SINGLE EPISODE, UNSPECIFIED Status : Acute (4) UTI (urinary tract infection) Status: Acute (5) Seizure disorder Code(s): G40.909 - EPILEPSY, UNSP, NOT INTRACTABLE, WITHOUT STATUS EPILEPTICUS Status: Chronic (6) Hyponatremia Code(s): E87.1 - HYPO-OSMOLALITY AND HYPONATREMIA Status: Resolved (7) Acute upper respiratory infection Code(s): J06.9 - ACUTE UPPER RESPIRATORY INFECTION, UNSPECIFIED Status: Acute (8) Altered mental status, unspecified Code(s): R41.82 - ALTERED MENTAL STATUS, UNSPECIFIED Status: Acute (9) Anxiety Code(s): F41.9 - ANXIETY DISORDER, UNSPECIFIED Status: Acute (10) BPH (benign prostatic hyperplasia) Code(s): N40.0 - BENIGN PROSTATIC HYPERPLASIA WITHOUT LOWER URINRY TRACT SYMP Status: Chronic (11) History of cerebrovascular accident Code(s): Z86.73 - PRSNL HX OF TIA (TIA), AND CEREB INFRC W/O RESID DEFICITS Status: Chronic - Plan Plan: Encephalopathy 2/2 suspected new onset parenchymal hemorrhage -Hx of hemorrhagic CVAs x 3 in past. -CT Brain showed a small parenchymal hemorrhage at the left temporal lobe. Repeat CT Brain on 10/19 showed stable small L posterior temporal intraparenchymal hematoma. MRI showed acute vs. subacute intra-axial hemorrhage , post lateral aspect of L temporal lobe. -Neurology and neurosurgery consulted. Neurosurgery recommended no intervention. -PT recommended inpatient rehab. Awaiting placement. -Started lisinopril 10mg PO daily, pressures are now in the 100s systolic. Will decrease dose to 5mg. -Stable for d/c once approved. Atrial fibrillation -Anticoagulation contraindicated due to hx of hemorrhagic CVAs. -SCDs placed -Continue home meds Hx hemorrhagic CVA x 3 Patient will not be placed on anticoagulation. Chronic brain changes noted on brain CT 10/18. -Management per above Urinary retention 2/2 BPH -Patient reports increased retention and incontinence x 1. UA was showed microscopic hematuria. Renal US showed no acute process. -Will likely need outpatient urology follow up. Epilepsy -Continue home dose Keppra -Neurology consulted, appreciate recs. Major Depressive Disorder, anxiety -Continue Sertraline. Recommend f/u with PCP on discharge to discuss increase in dose. HLD -Continue home med PCP: Giselle Whitt Code: Full PPx: SCDs Dispo: Inpatient rehab pending approval. Addendum - Attending - Attending Attestation Date/Time: 10/23/19 4205 I personally evaluated the patient and discussed the management with Dr. Bullock. I agree with the History, Examination, Assessment and Plan documented above with any addition or exceptions noted below. D/c pending placement. decreased lisinopril 2/2 lower BP overnight. will continue to titrate
[2019-10-23] MEDS: levETIRAcetam 500 MG TAB PO SCH ×2 (08:44→22:08)
[2019-10-23] MEDS: Potassium Chloride 10 MEQ TAB PO SCH ×2 (08:44→16:40)
[2019-10-23] MEDS: Lisinopril 5 MG TAB PO SCH (08:44)
--- NOTE | 2019-10-23 11:54 | PDOC.HOSPP ---
- Subjective Encounter Date: 10/23/19 Subjective: NEUROLOGY PROGRESS NOTE Patient alert, oriented but seems somewhat agitated. No acute events overnight. - Objective Vital Signs & Weight: Vital Signs (12 hours) Temp Pulse Resp BP Pulse Ox 10/23/19 11:17 98.5 F 112 H 20 106/75 100 10/23/19 08:44 75 10/23/19 07:50 93 L 10/23/19 07:26 96 10/23/19 07:25 98.1 F 75 16 112/71 93 L 10/23/19 04:00 97.6 F 79 16 98/56 L 96 10/23/19 00:42 97.6 F 67 12 102/68 96 Weight Weight 149 lb 4.8 oz I&O: 10/22/19 10/23/19 10/24/19 06:59 06:59 06:59 Intake Total 720 320 300 Output Total 350 380 Balance 370 -60 300 Result Diagrams: 10/20/19 04:52 10/20/19 04:52 Radiology Reviewed by me: Yes EKG Reviewed by me: Yes Hospitalist ROS - Review of Systems Constitutional: denies: fever, chills, sweats, weakness, malaise, other Eyes: denies: pain, vision change, conjunctivae inflammation, eyelid inflammation, redness, other ENT: denies: ear pain, ear discharge, nose pain, nose discharge, nose congestion , mouth pain, mouth swelling, throat pain, throat swelling, other Respiratory: denies: cough, dry, shortness of breath, hemoptysis, SOB with excertion, pleuritic pain, sputum, wheezing, other Cardiovascular: denies: chest pain, palpitations, orthopnea, paroxysmal noc. dyspnea, edema, light headedness, other Gastrointestinal: denies: nausea, vomiting, abdominal pain, diarrhea, constipation, melena, hematochezia, other Genitourinary: denies: dysuria, frequency, incontinence, hematuria, retention, other Musculoskeletal: denies: neck pain, shoulder pain, arm pain, back pain, hand pain, leg pain, foot pain, other Skin: denies: rash, lesions, mitchel, bruising, other Neurological: reports: confusion - Medication Medications: Active Medications Generic Name Dose Route Start Last Admin Trade Name Freq PRN Reason Stop Dose Admin Atorvastatin Calcium 40 mg 10/20/19 21:00 10/22/19 21:43 Lipitor PO 40 mg HS LORNA Administration Digoxin 0.125 mg 10/20/19 21:00 10/22/19 21:43 Lanoxin PO 0.125 mg HS LORNA Administration Docusate Sodium 100 mg 10/20/19 06:21 10/23/19 08:45 Colace PO 100 mg DAILY PRN Administration Constipation Hydralazine HCl 10 mg 10/21/19 21:04 10/22/19 05:11 Apresoline SLOW IVP 10 mg Q4H PRN Administration SBP >150 Levetiracetam 1,000 mg 10/19/19 21:00 10/23/19 08:44 Keppra PO 1,000 mg BID LORNA Administration Lisinopril 5 mg 10/23/19 09:00 10/23/19 08:44 Zestril PO 5 mg DAILY LORNA Administration Metoprolol Succinate 50 mg 10/20/19 09:00 10/23/19 08:44 Toprol Xl PO 50 mg DAILY LORNA Administration Potassium Chloride 10 meq 10/20/19 08:00 10/23/19 08:44 Klor-Con 10 PO 10 meq BID-WM LORNA Administration Sertraline HCl 50 mg 10/20/19 09:00 10/23/19 08:44 Zoloft PO 50 mg DAILY LORNA Administration Sodium Chloride 10 ml 10/19/19 15:01 10/21/19 22:42 Flush - Normal Saline IVF 10 ml PRN PRN Administration Saline Flush Tamsulosin HCl 0.4 mg 10/20/19 21:00 10/22/19 21:45 Flomax PO 0.4 mg HS LORNA Administration - Exam General Appearance: awake alert Eye: PERRL ENT: normocephalic atraumatic Neck: supple Heart: RRR Respiratory: CTAB Gastrointestinal: soft Extremities: no cyanosis Skin: normal turgor Neurological: no focal deficits, no new deficit Musculoskeletal: no muscle wasting Psychiatric: oriented to person, oriented to time Hosp A/P (1) Cerebral parenchymal hemorrhage Code(s): I61.9 - NONTRAUMATIC INTRACEREBRAL HEMORRHAGE, UNSPECIFIED Status: Acute (2) Major depressive disorder Code(s): F32.9 - MAJOR DEPRESSIVE DISORDER, SINGLE EPISODE, UNSPECIFIED Status : Acute (3) UTI (urinary tract infection) Status: Acute (4) Seizure disorder Code(s): G40.909 - EPILEPSY, UNSP, NOT INTRACTABLE, WITHOUT STATUS EPILEPTICUS Status: Chronic (5) Hyponatremia Code(s): E87.1 - HYPO-OSMOLALITY AND HYPONATREMIA Status: Resolved (6) Altered mental status, unspecified Code(s): R41.82 - ALTERED MENTAL STATUS, UNSPECIFIED Status: Acute - Plan PT/OT, speech therapy 74 year old male consulted for altered mental status which seems to be secondary to acute hemorrhage . No seizures since admission on keppra monotherapy. EEG reviewed and was negative for seizure activity. MRI brain reviewed which did not reveal acute infarction but positive for acute bleed. CT Brain showed a small parenchymal hemorrhage at the left temporal lobe. Neurosurgery recommended no surgical intervention. Telemetry- atrial fibrillation, Hold anticoagulation hemorrhagic CVAs. Neurochecks every 4 hours. Strict control of BP. Observe seizure precautions. Continue home dose of Keppra. Continue home medications. Ativan 2 mg IV for seizure greater than 2 minutes, Continue medial management per primary team. PT/OT Awaiting rehab placement. CM on board. Plan discussed with the patient and the nursing staff.
--- NOTE | 2019-10-23 21:22 | EEG ---
DATE OF SERVICE: 10/22/2019 ATTENDING PHYSICIAN: Sonali Gaytan MD This EEG was performed using 24-channel [employer] video digital EEG machine with 24 disk electrodes. This was an extended 2 hours 10 minutes of inpatient video EEG recording. Digital analysis of the EEG was done for spike and seizure detection, which revealed no abnormalities. BACKGROUND: The posterior background rhythm was not observed. HYPERVENTILATION: Not performed. PHOTIC STIMULATION: Not performed. SLEEP: No stage change was observed. EEG DIAGNOSES: 1. Intermittent irregular theta activity seen during the recording. 2. Absence of posterior background rhythm. CLINICAL INTERPRETATION: This EEG is consistent with moderate generalized nonspecific cerebral dysfunction. No ictal or interictal epileptiform abnormalities seen during the recording. Job ID: [id number]
[2019-10-23] MEDS: Tamsulosin HCl 0.4 MG CAP PO SCH (22:05)
[2019-10-23] MEDS: Digoxin 0.125 MG TAB PO SCH (22:05)
[2019-10-23] MEDS: Atorvastatin Calcium 40 MG TAB PO SCH (22:05)
--- NOTE | 2019-10-24 06:11 | PDOC.FM ---
- Subjective Subjective: Patient has no complaints today. He was enjoying his breakfast and is eager for discharge. - Objective Vital Signs & Weight: Vital Signs (12 hours) Temp Pulse Resp BP Pulse Ox 10/24/19 04:24 97.8 F 63 20 114/75 95 10/23/19 23:53 97.8 F 89 20 112/71 97 10/23/19 22:05 68 10/23/19 20:02 98.3 F 101 H 20 104/56 L 95 Weight Weight 68.084 kg I&O: 10/22/19 10/23/19 10/24/19 06:59 06:59 06:59 Intake Total 720 320 900 Output Total 350 380 600 Balance 370 -60 300 Result Diagrams: 10/20/19 04:52 10/20/19 04:52 Phys Exam - Physical Examination Constitutional: NAD HEENT: PERRLA, moist MMs Neck: full ROM Respiratory: no wheezing, no rales, no rhonchi, clear to auscultation bilateral Cardiovascular: RRR, no significant murmur, no rub Gastrointestinal: soft, non-tender, no distention, positive bowel sounds Musculoskeletal: no edema, pulses present Neurological: normal sensation, moves all 4 limbs Psychiatric: normal affect, A&O x 3 Dx/Plan - Plan Plan: Encephalopathy 2/2 suspected new onset parenchymal hemorrhage -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 -CT Brain showed a small parenchymal hemorrhage at the left temporal lobe. Repeat CT Brain on 10/19 showed stable small L posterior temporal intraparenchymal hematoma. MRI showed acute vs. subacute intra-axial hemorrhage , post lateral aspect of L temporal lobe. -Neurology and neurosurgery consulted. Neurosurgery recommended no intervention. -PT recommended inpatient rehab. Awaiting placement. -Started lisinopril 10mg PO daily, pressures are now in the 100s systolic. Will decrease dose to 5mg. -Stable for d/c once approved. Atrial fibrillation -Anticoagulation contraindicated due to hx of hemorrhagic CVAs. -SCDs placed -Continue home meds Hx hemorrhagic CVA x 3 Patient will not be placed on anticoagulation. Chronic brain changes noted on brain CT 10/18. -Management per above Urinary retention 2/2 BPH -Patient reports increased retention and incontinence x 1. UA was showed microscopic hematuria. Renal US showed no acute process. -Will likely need outpatient urology follow up. Epilepsy -Continue home dose Kepp -Neurology consulted, appreciate recs. Major Depressive Disorder, anxiety -Continue Sertraline. Recommend f/u with PCP on discharge to discuss increase in dose. HLD -Continue home med PCP: Giselle Whitt Code: Full PPx: SCDs Dispo: Inpatient rehab pending approval. Addendum - Attending - Attending Attestation Date/Time: 10/24/19 [id number] I personally evaluated the patient and discussed the management with Dr. calles. I agree with the History, Examination, Assessment and Plan documented above with any addition or exceptions noted below. d/c to rehab when approved.
[2019-10-24] MEDS: levETIRAcetam 500 MG TAB PO SCH ×2 (08:20→20:22)
[2019-10-24] MEDS: Lisinopril 5 MG TAB PO SCH (08:22)
[2019-10-24] MEDS: Potassium Chloride 10 MEQ TAB PO SCH ×2 (08:28→16:49)
--- NOTE | 2019-10-24 12:21 | PDOC.HOSPP ---
- Subjective Encounter Date: 10/24/19 Subjective: NEUROLOGY PROGRESS NOTE Patient alert, oriented and denoes any new complaints. No acute events overnight. - Objective Vital Signs & Weight: Vital Signs (12 hours) Temp Pulse Resp BP Pulse Ox 10/24/19 11:42 97.8 F 64 18 124/62 96 10/24/19 10:16 97 10/24/19 08:22 85 10/24/19 08:17 97 10/24/19 07:37 97.7 F 100 20 125/71 97 10/24/19 04:24 97.8 F 63 20 114/75 95 Weight Weight 150 lb 1.6 oz I&O: 10/23/19 10/24/19 10/25/19 06:59 06:59 06:59 Intake Total 320 975 Output Total 380 1025 Balance -60 -50 Result Diagrams: 10/20/19 04:52 10/20/19 04:52 Radiology Reviewed by me: Yes EKG Reviewed by me: Yes Hospitalist ROS - Review of Systems Constitutional: denies: fever, chills, sweats, weakness, malaise, other Eyes: denies: pain, vision change, conjunctivae inflammation, eyelid inflammation, redness, other ENT: denies: ear pain, ear discharge, nose pain, nose discharge, nose congestion , mouth pain, mouth swelling, throat pain, throat swelling, other Respiratory: denies: cough, dry, shortness of breath, hemoptysis, SOB with excertion, pleuritic pain, sputum, wheezing, other Gastrointestinal: denies: nausea, vomiting, abdominal pain, diarrhea, constipation, melena, hematochezia, other Genitourinary: denies: dysuria, frequency, incontinence, hematuria, retention, other Musculoskeletal: denies: neck pain, shoulder pain, arm pain, back pain, hand pain, leg pain, foot pain, other Skin: denies: rash, lesions, mitchel, bruising, other Neurological: reports: confusion - Medication Medications: Active Medications Generic Name Dose Route Start Last Admin Trade Name Freq PRN Reason Stop Dose Admin Atorvastatin Calcium 40 mg 10/20/19 21:00 10/23/19 22:05 Lipitor PO 40 mg HS LORNA Administration Digoxin 0.125 mg 10/20/19 21:00 10/23/19 22:05 Lanoxin PO 0.125 mg HS LORNA Administration Docusate Sodium 100 mg 10/20/19 06:21 10/23/19 08:45 Colace PO 100 mg DAILY PRN Administration Constipation Hydralazine HCl 10 mg 10/21/19 21:04 10/22/19 05:11 Apresoline SLOW IVP 10 mg Q4H PRN Administration SBP >150 Levetiracetam 1,000 mg 10/19/19 21:00 10/24/19 08:20 Keppra PO 1,000 mg BID LORNA Administration Lisinopril 5 mg 10/23/19 09:00 10/24/19 08:22 Zestril PO 5 mg DAILY LORNA Administration Metoprolol Succinate 50 mg 10/20/19 09:00 10/24/19 08:23 Toprol Xl PO 50 mg DAILY LORNA Administration Potassium Chloride 10 meq 10/20/19 08:00 10/24/19 08:28 Klor-Con 10 PO 10 meq BID-WM LORNA Administration Sertraline HCl 50 mg 10/20/19 09:00 10/24/19 08:29 Zoloft PO 50 mg DAILY LORNA Administration Sodium Chloride 10 ml 10/19/19 15:01 10/21/19 22:42 Flush - Normal Saline IVF 10 ml PRN PRN Administration Saline Flush Tamsulosin HCl 0.4 mg 10/20/19 21:00 10/23/19 22:05 Flomax PO 0.4 mg HS LORNA Administration - Exam General Appearance: awake alert Eye: PERRL ENT: normocephalic atraumatic Neck: supple Heart: RRR Respiratory: CTAB Gastrointestinal: soft Extremities: no cyanosis Skin: normal turgor Neurological: no focal deficits, no new deficit Musculoskeletal: normal tone, no muscle wasting Psychiatric: normal affect, normal behavior, A&O x 3, oriented to person, oriented to place Hosp A/P (1) Cerebral parenchymal hemorrhage Code(s): I61.9 - NONTRAUMATIC INTRACEREBRAL HEMORRHAGE, UNSPECIFIED Status: Acute (2) Major depressive disorder Code(s): F32.9 - MAJOR DEPRESSIVE DISORDER, SINGLE EPISODE, UNSPECIFIED Status : Acute (3) UTI (urinary tract infection) Status: Acute (4) Seizure disorder Code(s): G40.909 - EPILEPSY, UNSP, NOT INTRACTABLE, WITHOUT STATUS EPILEPTICUS Status: Chronic (5) Hyponatremia Code(s): E87.1 - HYPO-OSMOLALITY AND HYPONATREMIA Status: Resolved (6) Altered mental status, unspecified Code(s): R41.82 - ALTERED MENTAL STATUS, UNSPECIFIED Status: Acute - Plan PT/OT 74 year old male consulted for altered mental status which seems to be secondary to acute hemorrhage . No seizures since admission on keppra monotherapy. Clinically improved. Possible discharge to rehab today. Stable. EEG reviewed and was negative for seizure activity. MRI brain reviewed which did not reveal acute infarction but positive for acute bleed. CT Brain showed a small parenchymal hemorrhage at the left temporal lobe. Neurosurgery recommended no surgical intervention. Telemetry- atrial fibrillation, Hold anticoagulation hemorrhagic CVAs. Neurochecks every 4 hours. Strict control of BP. Observe seizure precautions. Continue home dose of Keppra. Continue home medications. Ativan 2 mg IV for seizure greater than 2 minutes, Continue medial management per primary team. PT/OT Plan discussed with the patient and the floor team during stroke rounds.
[2019-10-24] MEDS: Atorvastatin Calcium 40 MG TAB PO SCH (20:22)
[2019-10-24] MEDS: Digoxin 0.125 MG TAB PO SCH (20:22)
[2019-10-24] MEDS: Tamsulosin HCl 0.4 MG CAP PO SCH (20:22)
--- NOTE | 2019-10-25 05:45 | PDOC.FM ---
- Subjective Subjective: Patient reports no problems overnight. He was resting comfortably. - Objective Vital Signs & Weight: Vital Signs (12 hours) Temp Pulse Resp BP Pulse Ox 10/25/19 03:16 98.8 F 97 20 101/66 96 10/24/19 23:20 98.8 F 109 H 20 111/61 94 L 10/24/19 20:22 81 10/24/19 19:42 98.5 F 106 H 20 128/66 95 Weight Weight 68.084 kg I&O: 10/23/19 10/24/19 10/25/19 06:59 06:59 06:59 Intake Total 760 912 6951 Output Total 380 1025 1150 Balance -60 -50 -10 Result Diagrams: 10/20/19 04:52 10/20/19 04:52 EKG Reviewed by me: Yes (tele: Afib 60s-90s, 2.1 sec pause) Phys Exam - Physical Examination Constitutional: NAD HEENT: PERRLA, moist MMs, sclera anicteric Neck: full ROM Respiratory: no wheezing, no rales, no rhonchi, clear to auscultation bilateral Cardiovascular: RRR, no significant murmur, no rub Gastrointestinal: soft, non-tender, no distention, positive bowel sounds Musculoskeletal: no edema, pulses present Neurological: moves all 4 limbs Psychiatric: normal affect, A&O x 3 Dx/Plan - Plan Plan: Encephalopathy 2/2 suspected new onset parenchymal hemorrhage -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 -CT Brain showed a small parenchymal hemorrhage at the left temporal lobe. Repeat CT Brain on 10/19 showed stable small L posterior temporal intraparenchymal hematoma. MRI showed acute vs. subacute intra-axial hemorrhage , post lateral aspect of L temporal lobe. -Neurology and neurosurgery consulted. Neurosurgery recommended no intervention. -PT recommended inpatient rehab. Awaiting placement. -Was started on lisinopril 10mg on admission, which was decreased to 5mg. His blood pressure 100/59 this morning so we discontinued the lisinopril. -Stable for d/c once approved. Atrial fibrillation -Anticoagulation contraindicated due to hx of hemorrhagic CVAs. -SCDs placed -Continue home meds Hx hemorrhagic CVA x 3 Patient will not be placed on anticoagulation. Chronic brain changes noted on brain CT 10/18. -Management per above Urinary retention 2/2 BPH -Patient reports increased retention and incontinence x 1. UA was showed microscopic hematuria. Renal US showed no acute process. -Will likely need outpatient urology follow up. Epilepsy -Continue home dose Silvinopp -Neurology consulted, appreciate recs. Major Depressive Disorder, anxiety -Continue Sertraline. Recommend f/u with PCP on discharge to discuss increase in dose. HLD -Continue home med PCP: Giselle Whitt Code: Full PPx: SCDs Dispo: Inpatient rehab pending approval. Addendum - Attending - Attending Attestation Date/Time: 10/25/19 2000 I personally evaluated the patient and discussed the management with Dr. Lopes. I agree with the History, Examination, Assessment and Plan documented above with any addition or exceptions noted below. d/c once approved.
[2019-10-25] MEDS: levETIRAcetam 500 MG TAB PO SCH ×2 (08:43→21:34)
[2019-10-25] MEDS: Potassium Chloride 10 MEQ TAB PO SCH ×2 (08:43→17:15)
[2019-10-25] MEDS: Lisinopril 5 MG TAB PO SCH (09:04)
--- NOTE | 2019-10-25 13:33 | PDOC.HOSPP ---
- Subjective Encounter Date: 10/25/19 Subjective: NEUROLOGY PROGRESS NOTE Patient alert, oriented and followed commands. No acute events overnight. - Objective Vital Signs & Weight: Vital Signs (12 hours) Temp Pulse Pulse Resp BP BP BP 10/25/19 11:22 85 95/66 94/55 L 10/25/19 07:32 98.2 F 100 16 100/59 L 10/25/19 03:16 98.8 F 97 20 101/66 Pulse Ox 10/25/19 11:22 10/25/19 07:32 95 10/25/19 03:16 96 Weight Weight 146 lb 12.8 oz I&O: 10/24/19 10/25/19 10/26/19 06:59 06:59 06:59 Intake Total 975 1215 Output Total 1025 1560 Balance -50 -345 Result Diagrams: 10/20/19 04:52 10/20/19 04:52 Radiology Reviewed by me: Yes EKG Reviewed by me: Yes Hospitalist ROS - Review of Systems Constitutional: denies: fever, chills, sweats, weakness, malaise, other Eyes: denies: pain, vision change, conjunctivae inflammation, eyelid inflammation, redness, other Respiratory: denies: cough, dry, shortness of breath, hemoptysis, SOB with excertion, pleuritic pain, sputum, wheezing, other Cardiovascular: denies: chest pain, palpitations, orthopnea, paroxysmal noc. dyspnea, edema, light headedness, other Gastrointestinal: denies: nausea, vomiting, abdominal pain, diarrhea, constipation, melena, hematochezia, other Genitourinary: denies: dysuria, frequency, incontinence, hematuria, retention, other Musculoskeletal: denies: neck pain, shoulder pain, arm pain, back pain, hand pain, leg pain, foot pain, other Skin: denies: rash, lesions, mitchel, bruising, other Neurological: reports: confusion. denies: weakness, numbness, incoordination, change in speech, seizures, other - Medication Medications: Active Medications Generic Name Dose Route Start Last Admin Trade Name Freq PRN Reason Stop Dose Admin Atorvastatin Calcium 40 mg 10/20/19 21:00 10/24/19 20:22 Lipitor PO 40 mg HS LORNA Administration Digoxin 0.125 mg 10/20/19 21:00 10/24/19 20:22 Lanoxin PO 0.125 mg HS LORNA Administration Docusate Sodium 100 mg 10/20/19 06:21 10/23/19 08:45 Colace PO 100 mg DAILY PRN Administration Constipation Hydralazine HCl 10 mg 10/21/19 21:04 10/22/19 05:11 Apresoline SLOW IVP 10 mg Q4H PRN Administration SBP >150 Levetiracetam 1,000 mg 10/19/19 21:00 10/25/19 08:43 Keppra PO 1,000 mg BID LORNA Administration Metoprolol Succinate 50 mg 10/25/19 09:00 10/25/19 10:31 Toprol Xl PO 50 mg DAILY LORNA Administration Potassium Chloride 10 meq 10/20/19 08:00 10/25/19 08:43 Klor-Con 10 PO 10 meq BID-WM LORNA Administration Sertraline HCl 50 mg 10/20/19 09:00 10/25/19 08:43 Zoloft PO 50 mg DAILY LORNA Administration Sodium Chloride 10 ml 10/19/19 15:01 10/21/19 22:42 Flush - Normal Saline IVF 10 ml PRN PRN Administration Saline Flush Tamsulosin HCl 0.4 mg 10/20/19 21:00 10/24/19 20:22 Flomax PO 0.4 mg HS LORNA Administration - Exam General Appearance: awake alert Eye: PERRL ENT: normocephalic atraumatic Neck: supple Heart: RRR Respiratory: CTAB Gastrointestinal: soft Extremities: no cyanosis Skin: normal turgor Neurological: cranial nerve grossly intact, no new deficit Musculoskeletal: normal tone, normal strength, no muscle wasting Psychiatric: normal affect, normal behavior, oriented to person, oriented to place Hosp A/P (1) Cerebral parenchymal hemorrhage Code(s): I61.9 - NONTRAUMATIC INTRACEREBRAL HEMORRHAGE, UNSPECIFIED Status: Acute (2) Major depressive disorder Code(s): F32.9 - MAJOR DEPRESSIVE DISORDER, SINGLE EPISODE, UNSPECIFIED Status : Acute (3) UTI (urinary tract infection) Status: Acute (4) Seizure disorder Code(s): G40.909 - EPILEPSY, UNSP, NOT INTRACTABLE, WITHOUT STATUS EPILEPTICUS Status: Chronic (5) Hyponatremia Code(s): E87.1 - HYPO-OSMOLALITY AND HYPONATREMIA Status: Resolved (6) Altered mental status, unspecified Code(s): R41.82 - ALTERED MENTAL STATUS, UNSPECIFIED Status: Acute - Plan PT/OT, speech therapy 74 year old male consulted for altered mental status which seems to be secondary to acute hemorrhage . No seizures since admission on keppra monotherapy. Clinically much improved. Possible discharge to rehab soon/ CM on board. EEG reviewed and was negative for seizure activity. MRI brain reviewed which did not reveal acute infarction but positive for acute bleed. CT Brain showed a small parenchymal hemorrhage at the left temporal lobe. Neurosurgery recommended no surgical intervention. Telemetry- atrial fibrillation, Hold anticoagulation hemorrhagic CVAs. Neurochecks every 4 hours. Strict control of BP. Observe seizure precautions. Continue home dose of Keppra. Continue home medications. Ativan 2 mg IV for seizure greater than 2 minutes, Continue medial management per primary team. PT/OT Plan discussed with the patient and the floor team during MDR rounds.
[2019-10-25] MEDS: Atorvastatin Calcium 40 MG TAB PO SCH (21:34)
[2019-10-25] MEDS: Tamsulosin HCl 0.4 MG CAP PO SCH (21:34)
[2019-10-25] MEDS: Digoxin 0.125 MG TAB PO SCH (21:34)
--- NOTE | 2019-10-26 05:47 | PDOC.FM ---
- Subjective Subjective: Mr. Robbins has no complaints this morning. He was resting in bed comfortably. - Objective Vital Signs & Weight: Vital Signs (12 hours) Temp Pulse Resp BP Pulse Ox 10/26/19 03:58 97.3 F L 85 14 99/56 L 96 10/25/19 23:48 98.1 F 63 16 120/67 94 L 10/25/19 21:34 79 10/25/19 19:59 97.7 F 75 18 123/57 L 98 Weight Weight 66.678 kg I&O: 10/24/19 10/25/19 10/26/19 06:59 06:59 06:59 Intake Total 975 1215 432 Output Total 1025 1560 145 Balance -50 -345 287 Result Diagrams: 10/20/19 04:52 10/20/19 04:52 EKG Reviewed by me: Yes (tele: Afib, HR jumps between 60s to 130s) Phys Exam - Physical Examination Constitutional: NAD HEENT: PERRLA, moist MMs, sclera anicteric Neck: full ROM Respiratory: no wheezing, no rales, no rhonchi, clear to auscultation bilateral Cardiovascular: no significant murmur, no rub irregular rhythm Gastrointestinal: soft, non-tender, no distention, positive bowel sounds Musculoskeletal: no edema, pulses present Neurological: moves all 4 limbs Psychiatric: normal affect, A&O x 3 Dx/Plan - Plan Plan: Encephalopathy 2/2 suspected new onset parenchymal hemorrhage -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 -CT Brain showed a small parenchymal hemorrhage at the left temporal lobe. Repeat CT Brain on 10/19 showed stable small L posterior temporal intraparenchymal hematoma. MRI showed acute vs. subacute intra-axial hemorrhage , post lateral aspect of L temporal lobe. -Neurology and neurosurgery consulted. Neurosurgery recommended no intervention. -PT recommended inpatient rehab. Awaiting placement. -Was started on lisinopril 10mg on admission, which has since been discontinued. -Stable for d/c once approved. Will follow-up with CM today. Atrial fibrillation -Anticoagulation contraindicated due to hx of hemorrhagic CVAs. -SCDs placed -Continue home meds Hx hemorrhagic CVA x 3 Patient will not be placed on anticoagulation. Chronic brain changes noted on brain CT 10/18. -Management per above Urinary retention 2/2 BPH -Patient reports increased retention and incontinence x 1. UA was showed microscopic hematuria. Renal US showed no acute process. -Will likely need outpatient urology follow up. Epilepsy -Continue home dose Keppra -Neurology consulted, appreciate recs. Major Depressive Disorder, anxiety -Continue Sertraline. Recommend f/u with PCP on discharge to discuss increase in dose. HLD -Continue home med PCP: Giselle Whitt Code: Full PPx: SCDs Dispo: Inpatient rehab pending approval. Consider discharge home if patient cannot go to rehab today. Addendum - Attending - Attending Attestation Date/Time: 10/26/19 7136 I personally evaluated the patient and discussed the management with Dr. Lopes. I agree with the History, Examination, Assessment and Plan documented above with any addition or exceptions noted below. D/C rehab when placed.
[2019-10-26] MEDS: levETIRAcetam 500 MG TAB PO SCH (08:51)
[2019-10-26] MEDS: Potassium Chloride 10 MEQ TAB PO SCH ×2 (08:52→18:25)
[2019-10-26] MEDS ORDERED: Oxybutynin ER 5 MG TAB PO SCH (09:00)
--- NOTE | 2019-10-26 11:29 | PDOC.HOSPP ---
- Subjective Encounter Date: 10/26/19 Subjective: NEUROLOGY PROGRESS NOTE Patient alert, oriented and followed commands appropriately. No acute events overnight. - Objective Vital Signs & Weight: Vital Signs (12 hours) Temp Pulse Resp BP Pulse Ox 10/26/19 11:05 98.0 F 74 14 98/62 93 L 10/26/19 07:48 98.1 F 99 19 126/73 98 10/26/19 03:58 97.3 F L 85 14 99/56 L 96 10/25/19 23:48 98.1 F 63 16 120/67 94 L Weight Weight 147 lb I&O: 10/25/19 10/26/19 10/27/19 06:59 06:59 06:59 Intake Total 1215 432 360 Output Total 1560 970 140 Balance -345 -538 220 Result Diagrams: 10/20/19 04:52 10/20/19 04:52 Radiology Reviewed by me: Yes EKG Reviewed by me: Yes Hospitalist ROS - Review of Systems Constitutional: denies: fever, chills, sweats, weakness, malaise, other Eyes: denies: pain, vision change, conjunctivae inflammation, eyelid inflammation, redness, other ENT: denies: ear pain, ear discharge, nose pain, nose discharge, nose congestion , mouth pain, mouth swelling, throat pain, throat swelling, other Respiratory: denies: cough, dry, shortness of breath, hemoptysis, SOB with excertion, pleuritic pain, sputum, wheezing, other Cardiovascular: denies: chest pain, palpitations, orthopnea, paroxysmal noc. dyspnea, edema, light headedness, other Gastrointestinal: denies: nausea, vomiting, abdominal pain, diarrhea, constipation, melena, hematochezia, other Genitourinary: denies: dysuria, frequency, incontinence, hematuria, retention, other Musculoskeletal: denies: neck pain, shoulder pain, arm pain, back pain, hand pain, leg pain, foot pain, other Skin: denies: rash, lesions, mitchel, bruising, other Neurological: reports: confusion - Medication Medications: Active Medications Generic Name Dose Route Start Last Admin Trade Name Freq PRN Reason Stop Dose Admin Atorvastatin Calcium 40 mg 10/20/19 21:00 10/25/19 21:34 Lipitor PO 40 mg HS LORNA Administration Digoxin 0.125 mg 10/20/19 21:00 10/25/19 21:34 Lanoxin PO 0.125 mg HS LORNA Administration Docusate Sodium 100 mg 10/20/19 06:21 10/23/19 08:45 Colace PO 100 mg DAILY PRN Administration Constipation Hydralazine HCl 10 mg 10/21/19 21:04 10/22/19 05:11 Apresoline SLOW IVP 10 mg Q4H PRN Administration SBP >150 Levetiracetam 1,000 mg 10/19/19 21:00 10/26/19 08:51 Keppra PO 1,000 mg BID LORNA Administration Metoprolol Succinate 50 mg 10/25/19 09:00 10/26/19 08:52 Toprol Xl PO 50 mg DAILY LORNA Administration Oxybutynin Chloride 10 mg 10/26/19 09:00 10/26/19 08:51 Ditropan Xl PO 10 mg DAILY LORNA Administration Potassium Chloride 10 meq 10/20/19 08:00 10/26/19 08:52 Klor-Con 10 PO 10 meq BID-WM LORNA Administration Sertraline HCl 50 mg 10/20/19 09:00 10/26/19 08:51 Zoloft PO 50 mg DAILY LORNA Administration Sodium Chloride 10 ml 10/19/19 15:01 10/21/19 22:42 Flush - Normal Saline IVF 10 ml PRN PRN Administration Saline Flush Tamsulosin HCl 0.4 mg 10/20/19 21:00 10/25/19 21:34 Flomax PO 0.4 mg HS LORNA Administration - Exam General Appearance: awake alert Eye: PERRL ENT: normocephalic atraumatic Neck: supple Heart: RRR Respiratory: CTAB Gastrointestinal: soft Extremities: no cyanosis Skin: normal turgor Neurological: no focal deficits Musculoskeletal: normal tone, normal strength, no muscle wasting Psychiatric: normal affect, normal behavior, A&O x 3, oriented to person, oriented to place Hosp A/P (1) Cerebral parenchymal hemorrhage Code(s): I61.9 - NONTRAUMATIC INTRACEREBRAL HEMORRHAGE, UNSPECIFIED Status: Acute (2) Major depressive disorder Code(s): F32.9 - MAJOR DEPRESSIVE DISORDER, SINGLE EPISODE, UNSPECIFIED Status : Acute (3) UTI (urinary tract infection) Status: Acute (4) Seizure disorder Code(s): G40.909 - EPILEPSY, UNSP, NOT INTRACTABLE, WITHOUT STATUS EPILEPTICUS Status: Chronic (5) Hyponatremia Code(s): E87.1 - HYPO-OSMOLALITY AND HYPONATREMIA Status: Resolved (6) Altered mental status, unspecified Code(s): R41.82 - ALTERED MENTAL STATUS, UNSPECIFIED Status: Acute - Plan PT/OT, speech therapy 74 year old male consulted for altered mental status which seems to be secondary to acute hemorrhage . No seizures since admission on keppra monotherapy. Tolerating keppra well without any side-effects Clinically much improved. Possible discharge to rehab soon. CM on board. EEG reviewed and was negative for seizure activity. MRI brain reviewed which did not reveal acute infarction but positive for acute bleed. CT Brain showed a small parenchymal hemorrhage at the left temporal lobe. Neurosurgery recommended no surgical intervention. Telemetry- atrial fibrillation, Hold anticoagulation hemorrhagic CVAs. Neurochecks every 4 hours. Strict control of BP. Observe seizure precautions. Continue home dose of Keppra. Continue home medications. Ativan 2 mg IV for seizure greater than 2 minutes, Continue medial management per primary team. PT/OT Plan discussed with the patient and the floor team during MDR rounds.
[2019-10-26 11:33] VITALS: TEMP 97.9
[2019-10-26 15:48] VITALS: BP 110/65
--- NOTE | 2019-10-27 22:49 | DIS ---
DATE OF ADMISSION: 10/19/2019 DATE OF DISCHARGE: 10/26/2019 RESIDENT: Jin Lopes MD ADMITTING ATTENDING: Dillan Romero MD DISCHARGE ATTENDING: Jonah Meehan MD CONSULTS: Neurosurgery and Neurology. PROCEDURES: None. PRIMARY DIAGNOSIS: Encephalopathy secondary to suspected new onset parenchymal hemorrhage. SECONDARY DIAGNOSES: 1. Atrial fibrillation. 2. History of hemorrhagic CVA x3. 3. Urinary retention secondary to BPH. 4. Epilepsy. 5. Major depressive disorder. 6. Hyperlipidemia. DISCHARGE MEDICATIONS: 1. Metoprolol succinate 50 mg oral daily. 2. Atorvastatin 40 mg oral at bedtime. 3. Docusate 100 mg oral daily as needed. 4. Keppra 1000 mg oral twice daily. 5. Potassium chloride 10 mEq oral twice daily with meals. 6. Sertraline 50 mg oral daily. 7. Melatonin 10 mg oral as needed. 8. Tamsulosin 0.4 mg oral at bedtime. 9. Digoxin 0.125 mg oral at bedtime. DISCONTINUED MEDICATIONS: Metoprolol succinate. HISTORY OF PRESENT ILLNESS AND HOSPITAL COURSE: Moustapha Robbins is a 74-year-old male with history of hemorrhagic CVA x3, atrial fibrillation, epilepsy, anxiety, and major depressive disorder, who presented for altered mental status. told the ED physician he had increased confusion in ADLs as well as an episode of urinary incontinence. CT brain revealed small parenchymal hemorrhage in the left temporal lobe. Repeat CT showed stable small left posterior temporal intraparenchymal hematoma. MRI showed acute versus subacute intraaxial hemorrhage posterolateral aspect of left temporal lobe. Neurology and Neurosurgery were consulted. Neurosurgery recommended no intervention. On admission, the patient reported increased retention and one episode of incontinence. UA revealed microscopic hematuria and a renal ultrasound showed no acute process. Suggested outpatient followup. The patient has a history of epilepsy and was on Keppra at home. Neurology performed an EEG which is negative seizure activity and recommended continuing Keppra. The patient was discharged to inpatient rehab facility. DISPOSITION: Stable. DISCHARGE INSTRUCTIONS: 1. Location: Inpatient rehab. 2. Diet: Heart healthy and low sodium. 3. Activity: With assistance. 4. Followup: Follow up Urology in 4 to 6 weeks for urinary retention secondary to BPH. Job ID: [id number]
== END 2019-10-26 19:06 | DRG 65 ==
LOC: ERS 10:36 → 2SE 15:00
PROVIDERS: ADMIT Student in an Organized Health Care Education/Training Program; ATTEND Student in an Organized Health Care Education/Training Program
DX: I61.1 Nontraumatic intracerebral hemorrhage in hemisphere, cortical (principal); N39.0 Urinary tract infection, site not specified; E87.1 Hypo-osmolality and hyponatremia; G93.49 Other encephalopathy; G40.909 Epilepsy, unspecified, not intractable, without status epilepticus; F41.9 Anxiety disorder, unspecified; F32.9 Major depressive disorder, single episode, unspecified; I48.91 Unspecified atrial fibrillation; E55.9 Vitamin D deficiency, unspecified; N40.1 Benign prostatic hyperplasia with lower urinary tract symptoms; R33.8 Other retention of urine; H54.7 Unspecified visual loss; E78.5 Hyperlipidemia, unspecified; R31.29 Other microscopic hematuria; I10 Essential (primary) hypertension; R32 Unspecified urinary incontinence; R40.2362 Coma scale, best motor response, obeys commands, at arrival to emergency department; R40.2142 Coma scale, eyes open, spontaneous, at arrival to emergency department; R40.2252 Coma scale, best verbal response, oriented, at arrival to emergency department; J06.9 Acute upper respiratory infection, unspecified; Z85.828 Personal history of other malignant neoplasm of skin; Z86.73 Personal history of transient ischemic attack (TIA), and cerebral infarction without residual deficits
CPT/HCPCS: 36415; 51701; 70450; 70551; 71045; 76770; 80048; 80053; 80162; 80177; 81003; 81015; 82140; 82550; 83690; 84484; 85025; 85610; 85730; 93005; 95712; 95816; 95819; 95957; 96360; J0360

== ENCOUNTER 2020-01-21 12:22 | Emergency (ER) | payer MEDICARE, BC, OTHER ==
[2020-01-22 12:04] LABS: SARS-CoV-2 MS2 Positive; SARS-CoV-2 N Gene Negative; SARS-CoV-2 S Gene Negative; SARS-CoV-2 by NAA Not Detected (NotDetected); SARS-CoV-2 orf1ab Negative
== END 2020-01-21 12:50 | disposition home or self-care (01) ==
LOC: ERS 12:22
DX: Z20.828 Contact with and (suspected) exposure to other viral communicable diseases (principal); F41.9 Anxiety disorder, unspecified; G40.909 Epilepsy, unspecified, not intractable, without status epilepticus; M19.90 Unspecified osteoarthritis, unspecified site; Z79.899 Other long term (current) drug therapy; Z86.73 Personal history of transient ischemic attack (TIA), and cerebral infarction without residual deficits
CPT/HCPCS: 87635; 99283; U0003

== ENCOUNTER 2020-01-25 21:34 | Emergency (ER) | payer MEDICARE, BC, OTHER ==
[2020-01-25 22:26] LABS: #Lymphocytes 0.9 thou/uL (1.20-3.40); #Monocytes 0.6 thou/uL (0.11-0.59); #Neutrophils 2.8 thou/uL (1.40-6.50); %Basophils 0.3 % (0.0-1.0); %Eosinophils 0.6 % (0.0-10.0); %Lymphocytes 20.3 % (21.0-51.0); %Monocytes 14.6 % (0.0-10.0); %Neutrophils 64.1 % (42.0-75.0); Hemoglobin 12.5 g/dL (14.0-18.0); Mean Corpuscular HGB CONC 32.9 g/dL (32.0-36.0); Mean Corpuscular Hemoglobin 29.2 pg (27.0-31.0); Mean Corpuscular Volume 88.7 fL (78.0-98.0); Mean Platelet Volume 8.3 fL (7.4-10.4); Platelet Count 152 thou/uL (130-400); RBC Distribution Width 12.8 % (11.5-14.5); Red Blood Cell (RBC) Count 4.27 mill/uL (4.70-6.10); White Blood Cell (WBC) Count 4.4 thou/uL (4.8-10.8)
--- NOTE | 2020-01-25 22:27 | RAD ---
Chest one view HISTORY: CVA. Dyspnea. Fever. COMPARISON: 10/19/2019. FINDINGS: Cardiac silhouette is magnified by projection. Pulmonary vasculature is unremarkable. Mediastinum is midline. No lobar consolidation or evidence of pneumothorax. Old left clavicle fractur e. IMPRESSION : No active cardiopulmonary abnormalities are demonstrated.
[2020-01-25 22:50] LABS: ALT (SGPT) 7 U/L (8-55); AST (SGOT) 18 U/L (5-34); Albumin 3.6 g/dL (3.4-4.8); Alkaline Phosphatase 82 U/L (40-110); Anion Gap 14 mmol/L (10-20); BUN (Urea Nitrogen) 18 mg/dL (8.4-25.7); Bilirubin, Total 0.4 mg/dL (0.2-1.2); Calc. Creatinine Clearance 0 mL/min (70-130); Calcium 8.6 mg/dL (7.8-10.44); Carbon Dioxide 25 mmol/L (23-31); Chloride 104 mmol/L (98-107); Estimated GFR-MDRD 67; Globulin 2.7 g/dL (2.4-3.5); Glucose 104 mg/dL (83-110); Potassium 4.7 mmol/L (3.5-5.1); Protein, Total 6.3 g/dL (5.8-8.1); Sodium 138 mmol/L (136-145)
[2020-01-25 23:31] LABS: Bacteria/HPF None Seen HPF (None Seen); Bilirubin Negative (Negative); Blood, Urine 1+ (Negative); Clarity Clear (Clear); Glucose, Urine (Dipstick) Normal (Negative); Ketone, Urine Negative (Negative); Leukocyte Negative Leu/uL (Negative); Mucous/LPF Rare LPF (<2+); Nitrite Negative (Negative); Protein, Urine (Dipstick) 20 mg/dL (Neg-Trace); RBC/HPF 21-50 HPF (0-3); Squamous Epithelial None Seen HPF (0-3); WBC/HPF 0-3 HPF (0-3); pH, Urine 6.5 (5.0-9.0)
[2020-01-26 12:11] LABS: SARS-CoV-2 MS2 Positive; SARS-CoV-2 N Gene Positive; SARS-CoV-2 S Gene Positive; SARS-CoV-2 by NAA DETECTED (NotDetected); SARS-CoV-2 orf1ab Positive
== END 2020-01-26 00:14 | disposition home or self-care (01) ==
LOC: ERS 21:34
DX: J06.9 Acute upper respiratory infection, unspecified (principal); R31.9 Hematuria, unspecified; M19.90 Unspecified osteoarthritis, unspecified site; F41.9 Anxiety disorder, unspecified; G40.909 Epilepsy, unspecified, not intractable, without status epilepticus; Z85.828 Personal history of other malignant neoplasm of skin; Z79.899 Other long term (current) drug therapy; Z86.73 Personal history of transient ischemic attack (TIA), and cerebral infarction without residual deficits
CPT/HCPCS: 71045; 80053; 84484; 85025; 93005; U0003; 51701; 81003; 81015; 87635

== ENCOUNTER 2020-01-26 14:04 | Emergency (ER) | payer MEDICARE, BC ==
[2020-01-26 15:13] LABS: #Lymphocytes 0.8 thou/uL (1.20-3.40); #Monocytes 0.5 thou/uL (0.11-0.59); #Neutrophils 3.1 thou/uL (1.40-6.50); %Basophils 0.2 % (0.0-1.0); %Eosinophils 0.4 % (0.0-10.0); %Lymphocytes 18.2 % (21.0-51.0); %Monocytes 11.8 % (0.0-10.0); %Neutrophils 69.4 % (42.0-75.0); Hemoglobin 12.4 g/dL (14.0-18.0); Mean Corpuscular HGB CONC 34.1 g/dL (32.0-36.0); Mean Corpuscular Hemoglobin 30.2 pg (27.0-31.0); Mean Corpuscular Volume 88.7 fL (78.0-98.0); Mean Platelet Volume 8.3 fL (7.4-10.4); Platelet Count 142 thou/uL (130-400); RBC Distribution Width 12.6 % (11.5-14.5); Red Blood Cell (RBC) Count 4.11 mill/uL (4.70-6.10); White Blood Cell (WBC) Count 4.4 thou/uL (4.8-10.8)
--- NOTE | 2020-01-26 15:28 | RAD ---
PORTABLE CHEST: 01/26/20 HISTORY: Weakness. COVID positive. COMPARISON: 01/25/20. No confluent consolidation or significant effusion. Hazy ground glass infiltrates in the lower lungs cannot be excluded given the history of positive COVID. Upper lungs are clear. IMPRESSION: No significant change from yesterday. Hazy ground glass infiltrates in the lower lobes cannot be excl uded. POS: AGW
[2020-01-26 15:29] LABS: ALT (SGPT) 8 U/L (8-55); AST (SGOT) 14 U/L (5-34); Albumin 3.6 g/dL (3.4-4.8); Alkaline Phosphatase 81 U/L (40-110); Anion Gap 12 mmol/L (10-20); BUN (Urea Nitrogen) 14 mg/dL (8.4-25.7); Bilirubin, Total 0.6 mg/dL (0.2-1.2); Calc. Creatinine Clearance 0 mL/min (70-130); Calcium 8.3 mg/dL (7.8-10.44); Carbon Dioxide 26 mmol/L (23-31); Chloride 101 mmol/L (98-107); Estimated GFR-MDRD 80; Globulin 2.3 g/dL (2.4-3.5); Glucose 98 mg/dL (83-110); Potassium 4.3 mmol/L (3.5-5.1); Protein, Total 5.9 g/dL (5.8-8.1); Sodium 135 mmol/L (136-145)
[2020-01-26] MEDS ORDERED: Ibuprofen 800 MG TAB ONE (15:44)
[2020-01-26] MEDS ORDERED: Dexamethasone 10 MG/ML VIAL ONE (16:12)
== END 2020-01-26 16:11 | disposition home or self-care (01) ==
LOC: ERS 14:04
DX: U07.1 COVID-19 (principal); M19.90 Unspecified osteoarthritis, unspecified site; G40.909 Epilepsy, unspecified, not intractable, without status epilepticus; F41.9 Anxiety disorder, unspecified; Z79.899 Other long term (current) drug therapy
CPT/HCPCS: 36415; 71045; 80053; 84484; 85025; 93005; 96374; J1100

== ENCOUNTER 2020-01-28 19:40 | Emergency (ER) | payer MEDICARE, BC ==
[2020-01-28] MEDS ORDERED: Acetaminophen 325 MG TAB ONE (20:05)
== END 2020-01-28 21:56 | disposition home or self-care (01) ==
LOC: ERS 19:40
DX: U07.1 COVID-19 (principal); G40.909 Epilepsy, unspecified, not intractable, without status epilepticus; F41.9 Anxiety disorder, unspecified; Z79.899 Other long term (current) drug therapy
CPT/HCPCS: 93005

== ENCOUNTER 2020-01-30 17:20 | Inpatient (IN) | payer MEDICARE, BC ==
[2020-01-30 18:07] LABS: #Lymphocytes 0.7 thou/uL (1.20-3.40); #Monocytes 0.2 thou/uL (0.11-0.59); #Neutrophils 4.9 thou/uL (1.40-6.50); %Basophils 0.5 % (0.0-1.0); %Eosinophils 0.4 % (0.0-10.0); %Lymphocytes 12.5 % (21.0-51.0); %Monocytes 3.3 % (0.0-10.0); %Neutrophils 83.3 % (42.0-75.0); Hemoglobin 13.3 g/dL (14.0-18.0); Mean Corpuscular HGB CONC 31.9 g/dL (32.0-36.0); Mean Corpuscular Hemoglobin 28.2 pg (27.0-31.0); Mean Corpuscular Volume 88.4 fL (78.0-98.0); Mean Platelet Volume 9.8 fL (7.4-10.4); Platelet Count 80 thou/uL (130-400); RBC Distribution Width 12.8 % (11.5-14.5); White Blood Cell (WBC) Count 5.9 thou/uL (4.8-10.8)
[2020-01-30 18:17] LABS: MDiff Complete? YES; Ovalocytes SLIGHT = 2-5 cells (100X) (0-1/hpf); Platelet Morphology Comment Appears Decreased
--- NOTE | 2020-01-30 19:19 | RAD ---
TWO VIEWS LUMBOSACRAL SPINE: 01/30/20 COMPARISON: 05/08/18 HISTORY: Fall from standing with low back pain. FINDINGS: Two views of the lumbosacral spine shows wedge compression deformity of the L1 vertebral body with ap proximately 75% anterior height loss. This is remote but the amount of compression has worsened chuy red to the prior examination. The vertebral bodies demonstrate normal alignment without subluxation. No other compression fractures are seen. IMPRESSION: Chronic L1 compression fracture. POS: EAA
[2020-01-30] MEDS ORDERED: Acetaminophen 500 MG TAB ONE (21:08)
--- NOTE | 2020-01-30 22:08 | RAD ---
Chest AP view INDICATION: History of Covid infection COMPARISON: January 26, 2020 chest radiograph FINDINGS: Lungs: There is worsening airspace opacity within both lower lobe suspicious for worsening pneumonia . There is also worsening patchy opacity within the left upper lobe. Cardiac silhouette: Stable mild cardiomegaly Pulmonary vasculature: Normal Pleural spaces: No pleural effusion or pneumothorax is demonstrated. Upper abdomen: No abnormality seen. Osseous structures: No acute osseous abnormality. Additional findings: None. IMPRESSION: Worsening multifocal pneumonia
[2020-01-30 22:40] LABS: Bacteria/HPF None Seen HPF (None Seen); Bilirubin Negative (Negative); Blood, Urine 2+ (Negative); Clarity Clear (Clear); Glucose, Urine (Dipstick) Normal (Negative); Ketone, Urine 40 mg/dL (Negative); Leukocyte Negative Leu/uL (Negative); Mucous/LPF 1+ LPF (<2+); Nitrite Negative (Negative); Protein, Urine (Dipstick) 30 mg/dL (Neg-Trace); RBC/HPF 21-50 HPF (0-3); Specific Gravity, Urine 1.033 (1.002-1.036); Squamous Epithelial None Seen HPF (0-3); Urobilinogen 6 mg/dL (Less than 2); WBC/HPF 0-3 HPF (0-3)
[2020-01-30 22:48] LABS: ALT (SGPT) 11 U/L (8-55); AST (SGOT) 20 U/L (5-34); Albumin 3.4 g/dL (3.4-4.8); Alkaline Phosphatase 71 U/L (40-110); Anion Gap 12 mmol/L (10-20); BUN (Urea Nitrogen) 10 mg/dL (8.4-25.7); Bilirubin, Total 0.7 mg/dL (0.2-1.2); Calc. Creatinine Clearance 0 mL/min (70-130); Calcium 8.3 mg/dL (7.8-10.44); Carbon Dioxide 26 mmol/L (23-31); Chloride 99 mmol/L (98-107); Estimated GFR-MDRD Greater than 90; Globulin 2.8 g/dL (2.4-3.5); Glucose 101 mg/dL (83-110); Magnesium 1.7 mg/dL (1.6-2.6); Potassium 4.3 mmol/L (3.5-5.1); Protein, Total 6.2 g/dL (5.8-8.1); Sodium 133 mmol/L (136-145)
[2020-01-30] MEDS ORDERED: cefTRIAXone\\ROCEPHIN 2 GM VIAL ONE (23:34)
[2020-01-30] MEDS ORDERED: Sodium Chloride 0.9% 100 ML ONE (23:34)
[2020-01-30] MEDS ORDERED: Acetaminophen 325 MG TAB PO PRN (23:42)
[2020-01-30] MEDS ORDERED: cefTRIAXone\\ROCEPHIN 1 GM in Sodium Chloride 0.9% 100 ML IVPB SCH (23:45)
[2020-01-31] MEDS ORDERED: Dexamethasone 6 MG in Sodium Chloride 0.9% 50 ML IVPB SCH ×2 (01:00→02:30)
[2020-01-31 03:00] LABS: Troponin I 0.017 ng/mL (< 0.028)
[2020-01-31] MEDS: Acetaminophen 325 MG TAB PO PRN ×2 (04:44→23:28)
[2020-01-31 05:41] LABS: ALT (SGPT) 11 U/L (8-55); AST (SGOT) 21 U/L (5-34); Albumin 3.6 g/dL (3.4-4.8); Alkaline Phosphatase 76 U/L (40-110); Anion Gap 17 mmol/L (10-20); BUN (Urea Nitrogen) 13 mg/dL (8.4-25.7); Bilirubin, Total 0.6 mg/dL (0.2-1.2); Calc. Creatinine Clearance 0 mL/min (70-130); Calcium 8.6 mg/dL (7.8-10.44); Carbon Dioxide 23 mmol/L (23-31); Chloride 99 mmol/L (98-107); Estimated GFR-MDRD 86; Globulin 3.2 g/dL (2.4-3.5); Glucose 92 mg/dL (83-110); Potassium 4.3 mmol/L (3.5-5.1); Protein, Total 6.8 g/dL (5.8-8.1); Sodium 135 mmol/L (136-145)
[2020-01-31 06:36] LABS: Troponin I 0.015 ng/mL (< 0.028)
[2020-01-31] MEDS: Famotidine 20 MG TAB PO SCH ×2 (08:07→21:26)
[2020-01-31] MEDS ORDERED: Doxycycline 100 MG in Syringe 0 ML IVPB SCH (09:00)
[2020-01-31] MEDS ORDERED: Famotidine 20 MG TAB PO SCH ×2 (09:00)
--- NOTE | 2020-01-31 11:15 | PDOC.FM ---
- Subjective Subjective: Pt is a 75 yo male who presents to the ED after a fall. He fell secondary to tripping over his walker. Denies LOC, hitting his head. He was on the ground for 5 hours. His was unable to help him up. He has had multiple in the last 6 months. He denies any significant injuries in that time. Dr. Whitt is concerned with his well-being at home as his takes care of him and her mother in law who is fairly bed bound. They do not have home health. - Objective Vital Signs & Weight: Vital Signs (12 hours) Temp Pulse Resp BP Pulse Ox 01/31/20 08:10 98.2 F 132 H 24 H 124/76 100 01/31/20 04:40 102.8 F H 120 H 28 H 141/78 H 97 01/31/20 01:14 100.3 F H 116 H 20 132/81 93 L Weight Weight 65.726 kg Result Diagrams: 01/30/20 17:37 01/31/20 04:54 Phys Exam - Physical Examination Constitutional: NAD HEENT: PERRLA, moist MMs Respiratory: no wheezing, clear to auscultation bilateral Cardiovascular: RRR, no significant murmur Gastrointestinal: soft, positive bowel sounds Musculoskeletal: no edema, pulses present Neurological: non-focal, normal sensation Psychiatric: A&O x 3 Deviation from normal: flat affect Skin: no rash, cap refill <2 seconds Dx/Plan (1) Seizure disorder Code(s): G40.909 - EPILEPSY, UNSP, NOT INTRACTABLE, WITHOUT STATUS EPILEPTICUS Status: Chronic (2) Atrial fibrillation Code(s): I48.91 - UNSPECIFIED ATRIAL FIBRILLATION Status: Acute (3) Falls Code(s): W19.XXXA - UNSPECIFIED FALL, INITIAL ENCOUNTER Status: Acute (4) Generalized weakness Code(s): R53.1 - WEAKNESS Status: Acute (5) Major depressive disorder Code(s): F32.9 - MAJOR DEPRESSIVE DISORDER, SINGLE EPISODE, UNSPECIFIED Status: Acute (6) BPH (benign prostatic hyperplasia) Code(s): N40.0 - BENIGN PROSTATIC HYPERPLASIA WITHOUT LOWER URINRY TRACT SYMP Status: Chronic (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
--- NOTE | 2020-01-31 19:47 | PDOC.EVN ---
Event Note - Event Note Event Note: Patient was inadvertently admitted to Hospitalist service but is a patient of the [facility] Resident service. Will transfer care to the resident service today.
[2020-01-31] MEDS: levETIRAcetam 500 MG TAB PO SCH (21:25)
[2020-01-31] MEDS: Digoxin 0.125 MG TAB PO SCH (21:25)
[2020-01-31] MEDS: Atorvastatin Calcium 20 MG TAB PO SCH (21:25)
[2020-01-31] MEDS: Dexamethasone 6 MG in Sodium Chloride 0.9% 50 ML IVPB SCH (21:27)
[2020-01-31] MEDS ORDERED: cefTRIAXone\\ROCEPHIN 1 GM in Sodium Chloride 0.9% 100 ML IVPB SCH (23:00)
--- NOTE | 2020-02-01 06:33 | PDOC.FM ---
- Subjective Subjective: Pt is doing well. He is AAO x 2 after being woken from sleep. Apparently his thinks he might be depressed. He did fever overnight but has no obvious infections other than COVID. - Objective Vital Signs & Weight: Vital Signs (12 hours) Temp Pulse Resp BP BP Pulse Ox 02/01/20 04:20 97.8 F 101 H 19 120/77 93 L 01/31/20 23:25 101.7 F H 117 H 20 129/91 H 94 L 01/31/20 21:25 116 H 01/31/20 20:50 98.8 F 100 17 177/99 H 100 01/31/20 20:00 100 Weight Weight 65.726 kg I&O: 01/30/20 01/31/20 02/01/20 06:59 06:59 06:59 Intake Total 930 Balance 930 Result Diagrams: 01/30/20 17:37 01/31/20 04:54 Phys Exam - Physical Examination Constitutional: NAD HEENT: PERRLA, moist MMs Respiratory: no wheezing, clear to auscultation bilateral Cardiovascular: no significant murmur irregular rhythm Gastrointestinal: soft, non-tender Musculoskeletal: no edema, pulses present Neurological: non-focal, moves all 4 limbs Psychiatric: A&O x 3 Deviation from normal: flat affect Skin: no rash, cap refill <2 seconds Dx/Plan (1) Seizure disorder Code(s): G40.909 - EPILEPSY, UNSP, NOT INTRACTABLE, WITHOUT STATUS EPILEPTICUS Status: Chronic (2) Atrial fibrillation Code(s): I48.91 - UNSPECIFIED ATRIAL FIBRILLATION Status: Acute (3) Falls Code(s): W19.XXXA - UNSPECIFIED FALL, INITIAL ENCOUNTER Status: Acute (4) Generalized weakness Code(s): R53.1 - WEAKNESS Status: Acute (5) Major depressive disorder Code(s): F32.9 - MAJOR DEPRESSIVE DISORDER, SINGLE EPISODE, UNSPECIFIED Status: Acute (6) BPH (benign prostatic hyperplasia) Code(s): N40.0 - BENIGN PROSTATIC HYPERPLASIA WITHOUT LOWER URINRY TRACT SYMP Status: Chronic (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 Possible 2/2 COVID. Does not appear to be cellulitis, UTI. Possibly CAP, Bacteremia with studies pending. # Poor Vision # Seizures - continue keppra # BPH - continue flomax # A-Fib Pt currently in a-fib, he is mildly tachycardic, normotensive. He received his metoprolol and digoxin yesterday. Continue to monitor. - continue metoprolol, digoxin # HLD - continue atrovastatin # MDD - continue sertraline - reassess Fluids: PO Diet: HH VTE: lovenox Code: Full Dispo: Work up for bacterial infection pending given he fevered overnight. Possible secondary to Covid but do not want to miss bacterial infection.
[2020-02-01] MEDS ORDERED: Metoprolol Tartrate 50 MG TAB PO SCH (09:00)
[2020-02-01] MEDS: levETIRAcetam 500 MG TAB PO SCH ×2 (10:23→20:38)
[2020-02-01] MEDS: Famotidine 20 MG TAB PO SCH ×2 (10:24→20:38)
[2020-02-01] MEDS: Enoxaparin Sodium 40 MG/0.4 ML SYRINGE SC SCH (10:24)
[2020-02-01 11:17] LABS: #Lymphocytes 0.8 thou/uL (1.20-3.40); #Monocytes 0.4 thou/uL (0.11-0.59); #Neutrophils 8.1 thou/uL (1.40-6.50); %Basophils 0.1 % (0.0-1.0); %Lymphocytes 8.2 % (21.0-51.0); %Monocytes 4.7 % (0.0-10.0); Hemoglobin 14.5 g/dL (14.0-18.0); Mean Corpuscular HGB CONC 32.6 g/dL (32.0-36.0); Mean Corpuscular Hemoglobin 28.9 pg (27.0-31.0); Mean Corpuscular Volume 88.7 fL (78.0-98.0); Mean Platelet Volume 8.3 fL (7.4-10.4); Platelet Count 209 thou/uL (130-400); RBC Distribution Width 12.8 % (11.5-14.5); Red Blood Cell (RBC) Count 5.03 mill/uL (4.70-6.10); White Blood Cell (WBC) Count 9.3 thou/uL (4.8-10.8)
[2020-02-01 11:32] LABS: Anion Gap 15 mmol/L (10-20); BUN (Urea Nitrogen) 19 mg/dL (8.4-25.7); Calc. Creatinine Clearance 76 mL/min (70-130); Calcium 9.2 mg/dL (7.8-10.44); Carbon Dioxide 25 mmol/L (23-31); Chloride 101 mmol/L (98-107); Estimated GFR-MDRD Greater than 90; Glucose 117 mg/dL (83-110); Potassium 4.5 mmol/L (3.5-5.1); Sodium 136 mmol/L (136-145)
[2020-02-01] MEDS: Acetaminophen 325 MG TAB PO PRN ×2 (13:15→18:23)
[2020-02-01] MEDS: Digoxin 0.125 MG TAB PO SCH (20:38)
[2020-02-01] MEDS: Atorvastatin Calcium 20 MG TAB PO SCH (20:38)
[2020-02-01] MEDS: Dexamethasone 6 MG in Sodium Chloride 0.9% 50 ML IVPB SCH (20:39)
[2020-02-02 05:09] LABS: #Lymphocytes 0.5 thou/uL (1.20-3.40); #Monocytes 0.2 thou/uL (0.11-0.59); #Neutrophils 5.8 thou/uL (1.40-6.50); %Eosinophils 0.1 % (0.0-10.0); %Lymphocytes 7.7 % (21.0-51.0); %Monocytes 3.5 % (0.0-10.0); %Neutrophils 88.7 % (42.0-75.0); Hemoglobin 13.2 g/dL (14.0-18.0); Mean Corpuscular HGB CONC 32.6 g/dL (32.0-36.0); Platelet Count 194 thou/uL (130-400); RBC Distribution Width 12.6 % (11.5-14.5); Red Blood Cell (RBC) Count 4.54 mill/uL (4.70-6.10); White Blood Cell (WBC) Count 6.5 thou/uL (4.8-10.8)
[2020-02-02 05:39] LABS: Anion Gap 12 mmol/L (10-20); BUN (Urea Nitrogen) 22 mg/dL (8.4-25.7); Calc. Creatinine Clearance 72 mL/min (70-130); Carbon Dioxide 25 mmol/L (23-31); Chloride 99 mmol/L (98-107); Estimated GFR-MDRD Greater than 90; Glucose 143 mg/dL (83-110); Potassium 4.3 mmol/L (3.5-5.1); Sodium 132 mmol/L (136-145)
--- NOTE | 2020-02-02 05:47 | PDOC.FM ---
- Subjective Subjective: Pt is doing well without complaints. He is AAO x 2 upon waking from sleep. He endorsed fevers. Denies poor PO intake, N/V, diarrhea, constipation. No chest pain. HR controlled on tele. - Objective Vital Signs & Weight: Vital Signs (12 hours) Temp Pulse Resp BP BP Pulse Ox 02/02/20 02:50 98.1 F 92 16 140/89 95 02/01/20 23:50 97.8 F 90 16 130/80 94 L 02/01/20 20:38 77 02/01/20 20:00 100.2 F H 86 16 129/75 92 L 02/01/20 18:05 101.1 F H 109 H 18 126/61 92 L Weight Weight 65.726 kg I&O: 01/31/20 02/01/20 02/02/20 06:59 06:59 06:59 Intake Total 930 240 Balance 930 240 Result Diagrams: 02/02/20 04:48 02/02/20 04:48 EKG Reviewed by me: Yes (A-fib, rate controlled) Phys Exam - Physical Examination Constitutional: NAD HEENT: PERRLA, moist MMs Neck: no JVD, full ROM Respiratory: no rales, no rhonchi Cardiovascular: RRR, no significant murmur Gastrointestinal: soft, non-tender Musculoskeletal: no edema, pulses present Neurological: non-focal, normal sensation Dx/Plan (1) Seizure disorder Code(s): G40.909 - EPILEPSY, UNSP, NOT INTRACTABLE, WITHOUT STATUS EPILEPTICUS Status: Chronic (2) Atrial fibrillation Code(s): I48.91 - UNSPECIFIED ATRIAL FIBRILLATION Status: Acute (3) Falls Code(s): W19.XXXA - UNSPECIFIED FALL, INITIAL ENCOUNTER Status: Acute (4) Generalized weakness Code(s): R53.1 - WEAKNESS Status: Acute (5) Major depressive disorder Code(s): F32.9 - MAJOR DEPRESSIVE DISORDER, SINGLE EPISODE, UNSPECIFIED Status: Acute (6) BPH (benign prostatic hyperplasia) Code(s): N40.0 - BENIGN PROSTATIC HYPERPLASIA WITHOUT LOWER URINRY TRACT SYMP Status: Chronic (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 Segal to discuss need for placement as home environment is unsafe. has broken ribs secondary to Mr. Robbins's fall. # COVID Pneumonia - pt is not in respiratory distress - monitor oxygen saturations - procal negative. d/c abx # Fever - tylenol # Poor Vision # Seizures - continue keppra # BPH - continue flomax # A-Fib - continue metoprolol, digoxin - metoprolol increased to 100 mg daily # HLD - continue atrovastatin # MDD - continue sertraline - reassess Fluids: PO Diet: HH VTE: lovenox Code: Full Dispo: pending family discussion for placement
[2020-02-02] MEDS: Acetaminophen 325 MG TAB PO SCH ×3 (06:24→16:55)
[2020-02-02] MEDS: Famotidine 20 MG TAB PO SCH ×2 (08:59→19:45)
[2020-02-02] MEDS: levETIRAcetam 500 MG TAB PO SCH ×2 (08:59→19:45)
[2020-02-02] MEDS: Enoxaparin Sodium 40 MG/0.4 ML SYRINGE SC SCH (09:00)
[2020-02-02] MEDS: Atorvastatin Calcium 20 MG TAB PO SCH (19:44)
[2020-02-02] MEDS: Digoxin 0.125 MG TAB PO SCH (19:45)
[2020-02-02] MEDS: Dexamethasone 4 MG TAB PO SCH (19:45)
[2020-02-03] MEDS: Acetaminophen 325 MG TAB PO SCH ×4 (00:14→14:00)
[2020-02-03 05:24] LABS: INR-International Normal Ratio 1.1; PTT 35.3 sec (22.9-36.1); Prothrombin Time 14.8 sec (12.0-14.7)
[2020-02-03 05:25] LABS: D-Dimer Test 1.1 *mcg/mL (0.27-0.43)
[2020-02-03 05:48] LABS: CRP (Inflammatory) 18.88 mg/dL (= or < 0.5)
--- NOTE | 2020-02-03 06:48 | PDOC.FM ---
- Subjective Subjective: Pt is stable today. He was diagnosed with COVID on 01/24. He is not requiring oxygen. He denies fever, chills, abdominal pain, N/V. - Objective Vital Signs & Weight: Vital Signs (12 hours) Temp Pulse Resp BP Pulse Ox 02/03/20 04:27 97.9 F 88 26 H 146/76 H 94 L 02/02/20 19:54 99.7 F H 105 H 22 H 136/84 92 L 02/02/20 19:45 105 H Weight Weight 67.268 kg I&O: 02/01/20 02/02/20 02/03/20 06:59 06:59 06:59 Intake Total 930 480 720 Output Total 460 555 Balance 930 20 165 Result Diagrams: 02/02/20 04:48 02/02/20 04:48 Phys Exam - Physical Examination Constitutional: NAD HEENT: PERRLA, moist MMs Neck: no JVD, full ROM Respiratory: no wheezing, no rales Cardiovascular: no significant murmur irregular rhythm Gastrointestinal: soft, non-tender Musculoskeletal: no edema, pulses present Neurological: normal sensation, moves all 4 limbs Psychiatric: normal affect, A&O x 3 Dx/Plan (1) Seizure disorder Code(s): G40.909 - EPILEPSY, UNSP, NOT INTRACTABLE, WITHOUT STATUS EPILEPTICUS Status: Chronic (2) Atrial fibrillation Code(s): I48.91 - UNSPECIFIED ATRIAL FIBRILLATION Status: Acute (3) Falls Code(s): W19.XXXA - UNSPECIFIED FALL, INITIAL ENCOUNTER Status: Acute (4) Generalized weakness Code(s): R53.1 - WEAKNESS Status: Acute (5) Major depressive disorder Code(s): F32.9 - MAJOR DEPRESSIVE DISORDER, SINGLE EPISODE, UNSPECIFIED Status: Acute (6) BPH (benign prostatic hyperplasia) Code(s): N40.0 - BENIGN PROSTATIC HYPERPLASIA WITHOUT LOWER URINRY TRACT SYMP Status: Chronic (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 Segal to discuss need for placement as home environment is unsafe. has broken ribs secondary to Mr. Catalena's fall. # COVID Pneumonia - pt is not in respiratory distress - monitor oxygen saturations - procal negative. d/c abx - Ferritin, LDH elevated, Abs Lympn Count low - this could represent severe COVID; CRP, CK WNL. Unsure if pt will decline in the next few days. Will not administer convolescent plasma. # Fever - tylenol # Poor Vision # Seizures - continue keppra # BPH - continue flomax # A-Fib - continue metoprolol, digoxin - metoprolol increased to 100 mg daily # HLD - continue atrovastatin # MDD - continue sertraline - reassess Fluids: PO Diet: HH VTE: lovenox Code: Full Dispo: pending placement. Will reach out to CM to discuss [facility] at home vs 24 hr care
[2020-02-03] MEDS: Enoxaparin Sodium 40 MG/0.4 ML SYRINGE SC SCH (10:20)
[2020-02-03] MEDS: Famotidine 20 MG TAB PO SCH ×2 (10:21→21:34)
[2020-02-03] MEDS: levETIRAcetam 500 MG TAB PO SCH ×2 (10:22→21:34)
[2020-02-03] MEDS: Atorvastatin Calcium 20 MG TAB PO SCH (21:34)
[2020-02-03] MEDS: Digoxin 0.125 MG TAB PO SCH (21:34)
[2020-02-03] MEDS: Dexamethasone 4 MG TAB PO SCH (21:35)
--- NOTE | 2020-02-04 06:59 | PDOC.FM ---
- Subjective Subjective: Pt is doing well today. He has no complaints. He remains with a flat affect. He had no overnight events. Heart rate is well controlled. - Objective Vital Signs & Weight: Vital Signs (12 hours) Temp Pulse Resp BP Pulse Ox 02/04/20 06:10 98.3 F 73 27 H 124/74 96 02/04/20 00:32 98.8 F 96 29 H 127/68 96 02/03/20 21:41 100.0 F H 73 29 H 132/89 94 L Weight Weight 67.268 kg I&O: 02/02/20 02/03/20 02/04/20 06:59 06:59 06:59 Intake Total 480 720 330 Output Total 460 555 Balance 20 165 330 Result Diagrams: 02/02/20 04:48 02/02/20 04:48 Phys Exam - Physical Examination Constitutional: NAD HEENT: PERRLA, moist MMs Neck: no JVD, full ROM Respiratory: no wheezing, clear to auscultation bilateral Cardiovascular: RRR, no significant murmur Gastrointestinal: soft, positive bowel sounds Musculoskeletal: no edema, pulses present Neurological: non-focal, moves all 4 limbs Psychiatric: A&O x 3 Deviation from normal: flat affect Dx/Plan (1) Seizure disorder Code(s): G40.909 - EPILEPSY, UNSP, NOT INTRACTABLE, WITHOUT STATUS EPILEPTICUS Status: Chronic (2) Atrial fibrillation Code(s): I48.91 - UNSPECIFIED ATRIAL FIBRILLATION Status: Acute (3) Falls Code(s): W19.XXXA - UNSPECIFIED FALL, INITIAL ENCOUNTER Status: Acute (4) Generalized weakness Code(s): R53.1 - WEAKNESS Status: Acute (5) Major depressive disorder Code(s): F32.9 - MAJOR DEPRESSIVE DISORDER, SINGLE EPISODE, UNSPECIFIED Status: Acute (6) BPH (benign prostatic hyperplasia) Code(s): N40.0 - BENIGN PROSTATIC HYPERPLASIA WITHOUT LOWER URINRY TRACT SYMP Status: Chronic (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 Segal to discuss need for placement as home environment is unsafe. has bruised ribs secondary to Mr. Robbins's fall. Likely discharge to home today but will discuss with if she has established any help at home. # COVID Pneumonia - pt is not in respiratory distress - monitor oxygen saturations - procal negative. d/c abx - Ferritin, LDH elevated, Abs Lympn Count low - this could represent progression to severe COVID; CRP, CK WNL. Unsure if pt will decline in the next few days. # Fever - tylenol # Poor Vision # Seizures - continue keppra # BPH - continue flomax # A-Fib - continue metoprolol, digoxin - metoprolol increased to 100 mg daily # HLD - continue atrovastatin # MDD - continue sertraline - reassess Fluids: PO Diet: HH VTE: lovenox Code: Full Dispo: Will reach out to to discuss [facility] at home vs 24 hr care Addendum - Attending - Attending Attestation Date/Time: 02/04/20 6901 I personally evaluated the patient and discussed the management with Dr. Landaverde. I agree with the History, Examination, Assessment and Plan documented above with any addition or exceptions noted below.
[2020-02-04] MEDS: levETIRAcetam 500 MG TAB PO SCH ×2 (07:36→22:42)
[2020-02-04] MEDS: Famotidine 20 MG TAB PO SCH ×2 (07:36→22:37)
[2020-02-04] MEDS: Enoxaparin Sodium 40 MG/0.4 ML SYRINGE SC SCH (07:37)
[2020-02-04] MEDS: Atorvastatin Calcium 20 MG TAB PO SCH (22:38)
[2020-02-04] MEDS: Dexamethasone 4 MG TAB PO SCH (22:38)
[2020-02-04] MEDS: Digoxin 0.125 MG TAB PO SCH (22:41)
[2020-02-05] MEDS ORDERED: hydrALAZINE 20 MG/ML VIAL SLOW IVP PRN (01:11)
--- NOTE | 2020-02-05 06:57 | PDOC.FM ---
- Subjective Subjective: Pt is mildly agitated today. He would like to be home. He did desat overnight requiring him to be on 4 L NC. Remains AAO x 3. Denies fever, chills. Day 12 of COVID. Discussed with yesterday who was in agreeance he stays due to hypoxia. He was given convalescent plasma. - Objective Vital Signs & Weight: Vital Signs (12 hours) Temp Pulse Pulse Resp BP BP BP 02/05/20 04:00 97.5 F L 66 20 166/76 H 02/05/20 02:30 66 144/81 H 02/04/20 23:48 97.7 F 72 20 189/83 H 02/04/20 22:41 59 L 02/04/20 21:09 97.8 F 75 24 H 178/75 H 02/04/20 20:00 96.9 F L 77 20 165/83 H Pulse Ox 02/05/20 04:00 95 02/05/20 02:30 02/04/20 23:48 94 L 02/04/20 22:41 02/04/20 21:09 97 02/04/20 20:00 94 L Weight Weight 67.268 kg I&O: 02/03/20 02/04/20 02/05/20 06:59 06:59 06:59 Intake Total 720 330 860 Output Total 555 Balance 165 330 860 Result Diagrams: 02/02/20 04:48 02/02/20 04:48 EKG Reviewed by me: Yes (HR 60's) Phys Exam - Physical Examination agitated but AAO x 3 HEENT: PERRLA, moist MMs Neck: no JVD, full ROM Respiratory: no wheezing bilateral crackles Cardiovascular: no significant murmur irregular rate Gastrointestinal: soft, non-tender Musculoskeletal: no edema, pulses present Neurological: non-focal, normal sensation Psychiatric: A&O x 3 Skin: no rash, cap refill <2 seconds Dx/Plan (1) Seizure disorder Code(s): G40.909 - EPILEPSY, UNSP, NOT INTRACTABLE, WITHOUT STATUS EPILEPTICUS Status: Chronic (2) Atrial fibrillation Code(s): I48.91 - UNSPECIFIED ATRIAL FIBRILLATION Status: Acute (3) Falls Code(s): W19.XXXA - UNSPECIFIED FALL, INITIAL ENCOUNTER Status: Acute (4) Generalized weakness Code(s): R53.1 - WEAKNESS Status: Acute (5) Major depressive disorder Code(s): F32.9 - MAJOR DEPRESSIVE DISORDER, SINGLE EPISODE, UNSPECIFIED Status: Acute (6) BPH (benign prostatic hyperplasia) Code(s): N40.0 - BENIGN PROSTATIC HYPERPLASIA WITHOUT LOWER URINRY TRACT SYMP Status: Chronic (7) 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 - convalescent plasma 02/03 - monitor oxygen saturations - Ferritin, LDH elevated, Abs Lympn Count low - this could represent progression to severe COVID; CRP, CK WNL. # Recurrent Falls - consult CM - does not want placement. - consult Palliative - pt has considered changing code status. Will discuss today. - consult PT/OT - recommend SNF vs rehab # Fever - tylenol # Poor Vision # Seizures - continue keppra # BPH - continue flomax # A-Fib - continue metoprolol, digoxin - metoprolol increased to 100 mg daily # HLD - continue atrovastatin # MDD - continue sertraline - reassess Fluids: PO Diet: HH VTE: lovenox Code: Full Dispo: monitor respiratory status Addendum - Attending - Attending Attestation Date/Time: 02/05/20 1122 I personally evaluated the patient and discussed the management with Dr. Landaverde. I agree with the History, Examination, Assessment and Plan documented above with any addition or exceptions noted below.
[2020-02-05] MEDS: Enoxaparin Sodium 40 MG/0.4 ML SYRINGE SC SCH (08:38)
[2020-02-05] MEDS: levETIRAcetam 500 MG TAB PO SCH ×2 (08:38→21:40)
[2020-02-05] MEDS: Famotidine 20 MG TAB PO SCH ×2 (08:39→21:40)
[2020-02-05] MEDS: Atorvastatin Calcium 20 MG TAB PO SCH (21:40)
[2020-02-05] MEDS: Digoxin 0.125 MG TAB PO SCH (21:40)
[2020-02-05] MEDS: Dexamethasone 4 MG TAB PO SCH (21:40)
[2020-02-05] MEDS ORDERED: Ondansetron PF 4 MG/2 ML Vial IVP PRN (23:36)
[2020-02-06] MEDS: Melatonin 3 MG TAB PO PRN ×2 (00:58→21:41)
[2020-02-06 05:40] LABS: CRP (Inflammatory) 6.73 mg/dL (= or < 0.5)
--- NOTE | 2020-02-06 06:16 | PDOC.FM ---
- Subjective Subjective: Pt become combative over night. He was having difficulty sleeping. Night team administered melatonin which apparently helped with his symptoms. He was sleeping on initial evaluation. He has no complaints this am but does want to go home. He is now on 6L. - Objective Vital Signs & Weight: Vital Signs (12 hours) Temp Pulse Resp BP BP Pulse Ox 02/06/20 01:05 98.3 F 77 20 115/70 95 02/05/20 21:40 74 02/05/20 20:00 98.5 F 62 12 133/79 92 L Weight Weight 67.268 kg I&O: 02/04/20 02/05/20 02/06/20 06:59 06:59 06:59 Intake Total 330 860 237 Output Total 1200 Balance 330 860 -963 Result Diagrams: 02/02/20 04:48 02/06/20 05:07 Phys Exam - Physical Examination Constitutional: NAD HEENT: PERRLA, moist MMs Respiratory: no wheezing, clear to auscultation bilateral Cardiovascular: RRR, no significant murmur Gastrointestinal: soft, non-tender Musculoskeletal: no edema, pulses present Dx/Plan (1) Seizure disorder Code(s): G40.909 - EPILEPSY, UNSP, NOT INTRACTABLE, WITHOUT STATUS EPILEPTICUS Status: Chronic (2) Atrial fibrillation Code(s): I48.91 - UNSPECIFIED ATRIAL FIBRILLATION Status: Acute (3) Falls Code(s): W19.XXXA - UNSPECIFIED FALL, INITIAL ENCOUNTER Status: Acute (4) Generalized weakness Code(s): R53.1 - WEAKNESS Status: Acute (5) Major depressive disorder Code(s): F32.9 - MAJOR DEPRESSIVE DISORDER, SINGLE EPISODE, UNSPECIFIED Status: Acute (6) BPH (benign prostatic hyperplasia) Code(s): N40.0 - BENIGN PROSTATIC HYPERPLASIA WITHOUT LOWER URINRY TRACT SYMP Status: Chronic (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 Removed oxygen and desat to 88% - convalescent plasma 02/03 - monitor oxygen saturations - COVID markers improving although all have not resulted - repeat CXR # Recurrent Falls - consult CM - does not want placement. - consult Palliative - pt wants to be full code after discussion on 02/04 - consult PT/OT - recommend SNF vs rehab - continue working PT/OT # Delirium # Poor Vision - will attempt re-orienting, controlling back pain - family states he becomes delirious, belligerent when he is in the hospital for extending time - continue melatonin # Chronic L1 Compression Fracture - tylenol, steroids will help with pain - will avoid ibuprofen in the setting of covid # Fever - tylenol # Seizures - continue keppra # BPH - continue flomax # A-Fib - continue metoprolol, digoxin - metoprolol increased to 100 mg daily # HLD - continue atrovastatin # MDD - continue sertraline - reassess Fluids: PO Diet: HH VTE: lovenox Code: Full Dispo: monitor respiratory status Addendum - Attending - Attending Attestation Date/Time: 02/06/20 3882 I personally evaluated the patient and discussed the management with Dr. Landaverde. I agree with the History, Examination, Assessment and Plan documented above with any addition or exceptions noted below.
[2020-02-06 09:56] LABS: Anion Gap 16 mmol/L (10-20); BUN (Urea Nitrogen) 34 mg/dL (8.4-25.7); Calc. Creatinine Clearance 77 mL/min (70-130); Carbon Dioxide 23 mmol/L (23-31); Chloride 101 mmol/L (98-107); Estimated GFR-MDRD Greater than 90; Glucose 127 mg/dL (83-110); Potassium 4.7 mmol/L (3.5-5.1); Sodium 135 mmol/L (136-145)
[2020-02-06] MEDS: Famotidine 20 MG TAB PO SCH ×2 (10:02→19:25)
[2020-02-06] MEDS: Enoxaparin Sodium 40 MG/0.4 ML SYRINGE SC SCH (10:02)
[2020-02-06] MEDS: levETIRAcetam 500 MG TAB PO SCH ×2 (10:03→19:25)
--- NOTE | 2020-02-06 11:02 | RAD ---
Portable frontal chest radiograph: 02/06/2020 COMPARISON: 01/30/2020 HISTORY: Worsening shortness of breath FINDINGS: There is bilateral interstitial prominence with a perihilar and bibasilar predominance. Int erstitial opacity has worsened since the prior exam. There is also new hazy groundglass opacity/airspace disease within the right upper lobe, bilateral perihilar regions, and both lung base s. No pneumothorax or focal consolidation. IMPRESSION: Nonspecific interstitial and alveolar opacity. Findings are suspicious for atypical infec tious pneumonitis, such as Covid 19. Other infectious etiologies or asymmetric edema are possibilities.
[2020-02-06] MEDS: Dexamethasone 4 MG TAB PO SCH (19:25)
[2020-02-06] MEDS: Digoxin 0.125 MG TAB PO SCH (19:26)
[2020-02-06] MEDS: Atorvastatin Calcium 20 MG TAB PO SCH (19:26)
[2020-02-06] MEDS: Acetaminophen 325 MG TAB PO PRN (21:40)
--- NOTE | 2020-02-07 07:49 | PDOC.FM ---
- Subjective Subjective: Pt is agitated again this morning. He is AAO x 3. He did not have significant overnight events but nursing staff noted delirium. His sent the mother in law to the hospital again last night although she was not admitted. She does not have help at home at this time. She states she is working on it. - Objective Vital Signs & Weight: Vital Signs (12 hours) Temp Pulse Resp BP Pulse Ox 02/07/20 07:48 96 02/07/20 04:45 97.3 F L 67 18 122/63 96 02/07/20 02:10 96 02/07/20 00:00 65 16 96 02/06/20 20:00 92 L Weight Weight 67.268 kg I&O: 02/06/20 02/07/20 02/08/20 06:59 06:59 06:59 Intake Total 1007 480 Output Total 1500 575 Balance -493 -95 Result Diagrams: 02/02/20 04:48 02/06/20 05:07 Phys Exam - Physical Examination Constitutional: NAD HEENT: PERRLA, moist MMs Neck: no JVD, full ROM Respiratory: no wheezing fairly clear to auscultation but difficult to assess with agitation Cardiovascular: no significant murmur irregular rate Gastrointestinal: soft, non-tender Musculoskeletal: no edema, pulses present Dx/Plan (1) Seizure disorder Code(s): G40.909 - EPILEPSY, UNSP, NOT INTRACTABLE, WITHOUT STATUS EPILEPTICUS Status: Chronic (2) Atrial fibrillation Code(s): I48.91 - UNSPECIFIED ATRIAL FIBRILLATION Status: Acute (3) Falls Code(s): W19.XXXA - UNSPECIFIED FALL, INITIAL ENCOUNTER Status: Acute (4) Generalized weakness Code(s): R53.1 - WEAKNESS Status: Acute (5) Major depressive disorder Code(s): F32.9 - MAJOR DEPRESSIVE DISORDER, SINGLE EPISODE, UNSPECIFIED Status: Acute (6) BPH (benign prostatic hyperplasia) Code(s): N40.0 - BENIGN PROSTATIC HYPERPLASIA WITHOUT LOWER URINRY TRACT SYMP Status: Chronic (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 - convalescent plasma 02/03 - monitor oxygen saturations - COVID markers will be redrawn today - repeat CXR show no significant changes # Recurrent Falls - consult CM - does not want placement but she needs help at home. Pt is not safe at home if she does not have help. 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 - consult Palliative - pt wants to be full code after discussion on 02/04 - consult PT/OT - recommend SNF vs rehab - continue working PT/OT # Delirium # Poor Vision - will attempt re-orienting, controlling back pain - family states he becomes delirious, belligerent when he is in the hospital for extending time - continue melatonin # Chronic L1 Compression Fracture - tylenol, steroids will help with pain - heating pad ordered # Fever - tylenol # Seizures - continue keppra # BPH - continue flomax # A-Fib - continue metoprolol, digoxin - metoprolol increased to 100 mg daily # HLD - continue atrovastatin # MDD - continue sertraline - reassess Fluids: PO Diet: HH VTE: lovenox Code: Full Dispo: monitor respiratory status Addendum - Attending - Attending Attestation Date/Time: 02/07/20 6524 I personally evaluated the patient and discussed the management with Dr. Landaverde. I agree with the History, Examination, Assessment and Plan documented above with any addition or exceptions noted below.
[2020-02-07] MEDS: Enoxaparin Sodium 40 MG/0.4 ML SYRINGE SC SCH (08:50)
[2020-02-07] MEDS: Famotidine 20 MG TAB PO SCH ×2 (08:51→19:36)
[2020-02-07] MEDS: levETIRAcetam 500 MG TAB PO SCH ×2 (08:51→19:35)
[2020-02-07] MEDS: Digoxin 0.125 MG TAB PO SCH (19:36)
[2020-02-07] MEDS: Atorvastatin Calcium 20 MG TAB PO SCH (19:36)
[2020-02-07] MEDS: Dexamethasone 4 MG TAB PO SCH (19:37)
--- NOTE | 2020-02-08 07:02 | PDOC.FM ---
- Subjective Subjective: Pt is doing well without complaints. Nurses did not have overnight complaints. He has not had a BM. He was pleasant this morning. Did not have fevers overnight. - Objective Vital Signs & Weight: Vital Signs (12 hours) Temp Pulse Resp BP Pulse Ox 02/08/20 04:00 98.5 F 71 18 116/76 94 L 02/08/20 01:50 94 L 02/08/20 00:00 75 21 H 95 02/07/20 20:00 93 L 02/07/20 19:42 98.4 F 80 14 101/71 93 L 02/07/20 19:36 76 Weight Admit Weight 65.726 kg Weight 67.268 kg I&O: 02/06/20 02/07/20 02/08/20 06:59 06:59 06:59 Intake Total 1007 480 990 Output Total 1500 575 700 Balance -493 -95 290 Result Diagrams: 02/02/20 04:48 02/06/20 05:07 Phys Exam - Physical Examination Constitutional: NAD HEENT: PERRLA, moist MMs Respiratory: no wheezing, clear to auscultation bilateral Cardiovascular: no significant murmur irregular rhythm Gastrointestinal: soft, positive bowel sounds Musculoskeletal: no edema, pulses present Neurological: non-focal, moves all 4 limbs Dx/Plan (1) Seizure disorder Code(s): G40.909 - EPILEPSY, UNSP, NOT INTRACTABLE, WITHOUT STATUS EPILEPTICUS Status: Chronic (2) Atrial fibrillation Code(s): I48.91 - UNSPECIFIED ATRIAL FIBRILLATION Status: Acute (3) Falls Code(s): W19.XXXA - UNSPECIFIED FALL, INITIAL ENCOUNTER Status: Acute (4) Generalized weakness Code(s): R53.1 - WEAKNESS Status: Acute (5) Major depressive disorder Code(s): F32.9 - MAJOR DEPRESSIVE DISORDER, SINGLE EPISODE, UNSPECIFIED Status: Acute (6) BPH (benign prostatic hyperplasia) Code(s): N40.0 - BENIGN PROSTATIC HYPERPLASIA WITHOUT LOWER URINRY TRACT SYMP Status: Chronic (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 - convalescent plasma 02/03 - monitor oxygen saturations # Recurrent Falls - consult CM - does not want placement but she needs help at home. Pt is not safe at home if she does not have help. 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 - consult Palliative - pt wants to be full code after discussion on 02/04 - consult PT/OT - recommend SNF vs rehab - continue working PT/OT # Delirium # Poor Vision - will attempt re-orienting, controlling back pain - family states he becomes delirious, belligerent when he is in the hospital for extending time - continue melatonin # Chronic L1 Compression Fracture - tylenol, steroids will help with pain - heating pad ordered # Fever - tylenol # Seizures - continue keppra # BPH - continue flomax # A-Fib - continue metoprolol, digoxin - metoprolol increased to 100 mg daily # HLD - continue atrovastatin # MDD - continue sertraline - reassess Fluids: PO Diet: HH VTE: lovenox Code: Full Dispo: monitor respiratory status Addendum - Attending - Attending Attestation Date/Time: 02/08/20 2282 I personally evaluated the patient and discussed the management with Dr. Landaverde. I agree with the History, Examination, Assessment and Plan documented above with any addition or exceptions noted below. Patient continues to be stable from a COVID standpoint, O2 requirement has stabilized. Will discuss again with family the importance of SNU or Rehab prior to discharging home.
[2020-02-08] MEDS: Enoxaparin Sodium 40 MG/0.4 ML SYRINGE SC SCH (10:13)
[2020-02-08] MEDS: Polyethylene Glycol 3350 17 GM Packet PO SCH (10:13)
[2020-02-08] MEDS: Famotidine 20 MG TAB PO SCH ×2 (10:14→20:09)
[2020-02-08] MEDS: levETIRAcetam 500 MG TAB PO SCH ×2 (10:15→20:10)
[2020-02-08] MEDS: Atorvastatin Calcium 20 MG TAB PO SCH (20:08)
[2020-02-08] MEDS: Dexamethasone 4 MG TAB PO SCH (20:08)
[2020-02-08] MEDS: Digoxin 0.125 MG TAB PO SCH (20:09)
[2020-02-08] MEDS: Mirtazapine 15 MG TAB PO SCH (20:10)
--- NOTE | 2020-02-09 06:32 | PDOC.FM ---
- Subjective Subjective: No overnight events. Will only answer "yes" to if he can hear me, otherwise does not respond to questions. - Objective MAR Reviewed: Yes Vital Signs & Weight: Vital Signs (12 hours) Temp Pulse Resp BP BP Pulse Ox 02/09/20 04:40 98 F 82 20 123/82 95 02/09/20 04:25 93 L 02/09/20 00:01 99.2 F 90 20 101/70 93 L 02/08/20 20:09 97 02/08/20 19:30 99.0 F 97 18 137/67 92 L Weight Admit Weight 65.726 kg Weight 64.274 kg I&O: 02/07/20 02/08/20 02/09/20 06:59 06:59 06:59 Intake Total 480 990 200 Output Total 575 700 0 Balance -95 290 200 Result Diagrams: 02/02/20 04:48 02/06/20 05:07 Phys Exam - Physical Examination Constitutional: NAD Neck: no nodes, supple Respiratory: no wheezing, clear to auscultation bilateral Cardiovascular: RRR, no significant murmur Gastrointestinal: soft Musculoskeletal: no edema, pulses present (radial 2+ b/l) Neurological: non-focal Deviation from normal: Not cooperative with answering questions Skin: no rash Dx/Plan - Plan Plan: 75yo male admitted for COVID pneumonia Acute hypoxic Resp failure 2/2 COVID Pneumonia Day 14 of positive serology - 6L NC this am. - Convalescent plasma 02/03 - Monitor oxygen saturations Recurrent Falls - consult CM - does not want placement but she needs help at home. Pt is not safe at home if she does not have help. 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 - consult Palliative - pt wants to be full code after discussion on 02/04 - consult PT/OT - recommend SNF vs rehab. Continue therapy Delirium Poor Vision - Re-orient, Control back pain. Melatonin at HS. Chronic L1 Compression Fracture - Tylenol and heating pad ordered. Seizures - Continue keppra BPH - Continue flomax A-Fib - Continue metoprolol, digoxin. Continue Metoprolol 100mg daily HLD - Continue atrovastatin MDD - Continue sertraline DVT ppx: lovenox Code Status: Full Addendum - Attending - Attending Attestation Date/Time: 02/09/20 0749 I personally evaluated the patient and discussed the management with Dr. Fernandes. I agree with the History, Examination, Assessment and Plan documented above with any addition or exceptions noted below. Patient here with COVID pneumonia and hypoxic resp failure. Continue supportive care. Needs placement instead of returning home.
[2020-02-09] MEDS: Polyethylene Glycol 3350 17 GM Packet PO SCH (08:59)
[2020-02-09] MEDS: Famotidine 20 MG TAB PO SCH ×2 (08:59→21:04)
[2020-02-09] MEDS: levETIRAcetam 500 MG TAB PO SCH ×2 (08:59→21:06)
[2020-02-09] MEDS: Enoxaparin Sodium 40 MG/0.4 ML SYRINGE SC SCH (08:59)
[2020-02-09] MEDS: Dexamethasone 4 MG TAB PO SCH (21:01)
[2020-02-09] MEDS: Atorvastatin Calcium 20 MG TAB PO SCH (21:01)
[2020-02-09] MEDS: Digoxin 0.125 MG TAB PO SCH (21:04)
[2020-02-09] MEDS: Mirtazapine 15 MG TAB PO SCH (21:05)
[2020-02-09] MEDS: Melatonin 3 MG TAB PO PRN (21:07)
[2020-02-10 07:44] LABS: ALT (SGPT) 42 U/L (8-55); AST (SGOT) 33 U/L (5-34); Albumin 2.6 g/dL (3.4-4.8); Alkaline Phosphatase 90 U/L (40-110); Anion Gap 14 mmol/L (10-20); BUN (Urea Nitrogen) 27 mg/dL (8.4-25.7); Bilirubin, Total 0.6 mg/dL (0.2-1.2); CRP (Inflammatory) 13.26 mg/dL (= or < 0.5); Calc. Creatinine Clearance 69 mL/min (70-130); Calcium 8.8 mg/dL (7.8-10.44); Carbon Dioxide 25 mmol/L (23-31); Chloride 100 mmol/L (98-107); Estimated GFR-MDRD Greater than 90; Globulin 3.7 g/dL (2.4-3.5); Glucose 117 mg/dL (83-110); Potassium 4.6 mmol/L (3.5-5.1); Protein, Total 6.3 g/dL (5.8-8.1); Sodium 134 mmol/L (136-145)
[2020-02-10] MEDS: Polyethylene Glycol 3350 17 GM Packet PO SCH (08:40)
[2020-02-10] MEDS: Enoxaparin Sodium 40 MG/0.4 ML SYRINGE SC SCH (08:40)
[2020-02-10] MEDS: Famotidine 20 MG TAB PO SCH ×2 (08:40→20:01)
[2020-02-10] MEDS: levETIRAcetam 500 MG TAB PO SCH ×2 (08:41→20:01)
[2020-02-10] MEDS: Acetaminophen 325 MG TAB PO PRN ×2 (08:51→18:15)
--- NOTE | 2020-02-10 08:57 | PDOC.FM ---
- Subjective Subjective: Upgraded from 6L NC to HFNC yesterday. More alert this morning. Reports depressed mood. States at home he enjoys looking at the stars, [place] and yellow and red colors. Agreeable to getting up in the chair and sitting near window. Enjoys talking with his on the phone. - Objective MAR Reviewed: Yes Vital Signs & Weight: Vital Signs (12 hours) Pulse Resp BP Pulse Ox 02/10/20 04:00 57 L 18 115/74 96 02/10/20 00:00 58 L 18 Weight Admit Weight 65.726 kg Weight 64.274 kg I&O: 02/09/20 02/10/20 02/11/20 07:59 06:59 06:59 Intake Total Output Total Balance Result Diagrams: 02/02/20 04:48 02/10/20 07:00 Phys Exam - Physical Examination Constitutional: NAD HEENT: moist MMs Neck: supple Coarse breath sounds Cardiovascular: RRR (bradycardic on tele overnight) Gastrointestinal: soft Musculoskeletal: no edema Neurological: moves all 4 limbs Psychiatric: A&O x 3 Deviation from normal: Depressed mood Skin: normal turgor Dx/Plan - Plan Plan: 75yo male admitted for COVID pneumonia Acute hypoxic Resp failure 2/2 COVID Pneumonia Day 15 of positive serology - HFNC 50L 70% FiO2, upgraded from 6L NC yesterday - Convalescent plasma 02/03 - Monitor oxygen saturations, wean as tolerated Recurrent Falls - consult CM - does not want placement but she needs help at home. Pt is not safe at home if she does not have help. 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 - consult Palliative - pt wants to be full code after discussion on 02/04 - consult PT/OT - recommend SNF vs rehab. Continue therapy Delirium Poor Vision - Re-orient, Control back pain. Melatonin at HS. Chronic L1 Compression Fracture - Tylenol and heating pad ordered. Seizures - Continue keppra BPH - Continue flomax A-Fib - Continue metoprolol, digoxin. Continue Metoprolol 100mg daily HLD - Continue atrovastatin MDD - Continue sertraline, will increase to 100mg daily. DVT ppx: lovenox Code Status: Full Addendum - Attending - Attending Attestation Date/Time: 02/10/20 971 I personally evaluated the patient and discussed the management with Dr. Fernandes. I agree with the History, Examination, Assessment and Plan documented above with any addition or exceptions noted below. patient continues to have worsening respiratory status with increasing hypoxia from Covid pneumonia. Continue by slow nasal cannula as needed per RT. Will increase antidepressant today due to worsening mood associated with his diagnosis.
[2020-02-10] MEDS: Dexamethasone 4 MG TAB PO SCH (20:00)
[2020-02-10] MEDS: Atorvastatin Calcium 20 MG TAB PO SCH (20:00)
[2020-02-10] MEDS: Digoxin 0.125 MG TAB PO SCH (20:01)
[2020-02-10] MEDS: Mirtazapine 15 MG TAB PO SCH (20:02)
--- NOTE | 2020-02-11 06:22 | PDOC.FM ---
- Subjective Subjective: Patient aggressive while in the room today, shouting that he wants to go home. Denies dyspnea. Raised blinds while in room. - Objective Vital Signs & Weight: Vital Signs (12 hours) Temp Pulse Resp BP Pulse Ox 02/11/20 05:16 94 L 02/11/20 04:00 97.9 F 61 19 130/73 98 02/10/20 23:51 97.9 F 73 17 109/63 94 L 02/10/20 20:37 98.5 F 76 19 119/56 L 95 Weight Admit Weight 65.726 kg Weight 64.274 kg I&O: 02/09/20 02/10/20 02/11/20 07:59 06:59 06:59 Intake Total 1080 Output Total 1 Balance 1079 Result Diagrams: 02/02/20 04:48 02/10/20 07:00 Phys Exam - Physical Examination aggitated HEENT: moist MMs Neck: supple, full ROM decreased breath sounds, some accessory muscle use Cardiovascular: RRR, no significant murmur Musculoskeletal: no edema Neurological: moves all 4 limbs Deviation from normal: aggitated Skin: no rash Dx/Plan (1) Acute respiratory failure with hypoxia Code(s): J96.01 - ACUTE RESPIRATORY FAILURE WITH HYPOXIA Status: Acute (2) Pneumonia due to COVID-19 virus Code(s): U07.1 - COVID-19; J12.89 - OTHER VIRAL PNEUMONIA Status: Acute (3) Anxiety Code(s): F41.9 - ANXIETY DISORDER, UNSPECIFIED Status: Acute (4) Atrial fibrillation Code(s): I48.91 - UNSPECIFIED ATRIAL FIBRILLATION Status: Acute (5) Blindness Code(s): 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 Pt is not safe at home if she does not have help. 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 - consult Palliative - pt wants to be full code after discussion on 02/04 - consult PT/OT - recommend SNF vs rehab. Continue therapy #Delirium Poor Vision - Re-orient, Control back pain. Melatonin at HS. #Chronic L1 Compression Fracture - Tylenol and heating pad ordered. #Seizures - Continue keppra #BPH - Continue flomax #A-Fib - Continue metoprolol, digoxin. Continue Metoprolol 100mg daily #HLD - Continue atrovastatin #MDD - Continue sertraline, increased to 100mg 02/09 DVT ppx: lovenox Code Status: Full Addendum - Attending - Attending Attestation Date/Time: 02/11/20 [id number] I personally evaluated the patient and discussed the management with Dr. Mcdonald I agree with the History, Examination, Assessment and Plan documented above with any addition or exceptions noted below - Patient denies complaints. States breathing seems better. Afebrile VSS. A/P: 1) Acute hypoxic resp failure due to COVID pneumonia - nurse in room and attempted to wean O2 to NC. O2 sats 89-90% on 5L NC. Will place back on HFNC on lower setting and continue to try and wean as tolerated. Completed convalscent plasma. 2) Protein-calorie malnutrition - only eating one meal per day and 1 ensure. Not sufficient intake for needs. will start on PPN as patient most likely will not tolerate placement of dobhoff (has been combative/aggressive with nurses and has pulled O2 off). 3) Depression sertraline recently increased; continue to monitor.
[2020-02-11] MEDS: Enoxaparin Sodium 40 MG/0.4 ML SYRINGE SC SCH (07:39)
[2020-02-11] MEDS: levETIRAcetam 500 MG TAB PO SCH ×2 (07:40→19:30)
[2020-02-11] MEDS: Famotidine 20 MG TAB PO SCH ×2 (07:40→19:28)
[2020-02-11] MEDS: Polyethylene Glycol 3350 17 GM Packet PO SCH (07:41)
[2020-02-11] MEDS: D5W-AA 4.25% with LYTES 1,000 ML IV SCH (15:49)
[2020-02-11] MEDS: Mirtazapine 15 MG TAB PO SCH (19:28)
[2020-02-11] MEDS: Tamsulosin HCl 0.4 MG CAP PO SCH (19:29)
[2020-02-11] MEDS: Digoxin 0.125 MG TAB PO SCH (19:29)
[2020-02-11] MEDS: Acetaminophen 325 MG TAB PO PRN (19:30)
[2020-02-11] MEDS: Dexamethasone 4 MG TAB PO SCH (19:31)
[2020-02-11] MEDS: Atorvastatin Calcium 20 MG TAB PO SCH (19:32)
[2020-02-12] MEDS: D5W-AA 4.25% with LYTES 1,000 ML IV SCH ×2 (05:17→18:36)
--- NOTE | 2020-02-12 06:25 | PDOC.FM ---
- Subjective Subjective: Patient did well overnight, was transitioned from HFNC to 6L NC and has been tolerating this well. - Objective Vital Signs & Weight: Vital Signs (12 hours) Temp Pulse Resp BP Pulse Ox 02/12/20 03:45 97.9 F 70 18 114/68 96 02/12/20 00:00 61 14 94 L 02/11/20 20:00 98 02/11/20 19:40 98.3 F 54 L 15 121/67 98 02/11/20 19:29 56 L Weight Admit Weight 65.726 kg Weight 67.585 kg I&O: 02/10/20 02/11/20 02/12/20 06:59 06:59 06:59 Intake Total 1080 750 Output Total 1 Balance 1079 750 Result Diagrams: 02/02/20 04:48 02/10/20 07:00 Phys Exam - Physical Examination Constitutional: NAD HEENT: moist MMs, sclera anicteric Neck: supple, full ROM ronchi RUL Cardiovascular: RRR, no significant murmur Gastrointestinal: soft, no distention Musculoskeletal: no edema, pulses present Neurological: non-focal, moves all 4 limbs Psychiatric: normal affect Skin: no rash Dx/Plan (1) Acute respiratory failure with hypoxia Code(s): J96.01 - ACUTE RESPIRATORY FAILURE WITH HYPOXIA Status: Acute (2) Pneumonia due to COVID-19 virus Code(s): U07.1 - COVID-19; J12.89 - OTHER VIRAL PNEUMONIA Status: Acute (3) Anxiety Code(s): F41.9 - ANXIETY DISORDER, UNSPECIFIED Status: Acute (4) Atrial fibrillation Code(s): I48.91 - UNSPECIFIED ATRIAL FIBRILLATION Status: Acute (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 Pt is not safe at home if she does not have help. 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 [facility] has accepted patient pending his discharge. - consult Palliative - pt wants to be full code after discussion on 02/04 - consult PT/OT - recommend SNF vs rehab. Continue therapy #Delirium Poor Vision - Re-orient, Control back pain. Melatonin at HS. - Patient talking with his appears to help with his delirium #Chronic L1 Compression Fracture - Tylenol and heating pad ordered. #Seizures - Continue keppra #BPH - Continue flomax #A-Fib - Continue metoprolol, digoxin. #HLD - Continue atrovastatin #MDD - Continue sertraline, increased to 100mg 02/09 DVT ppx: lovenox Code Status: Full Addendum - Attending - Attending Attestation Date/Time: 02/12/20 [id number] I personally evaluated the patient and discussed the management with Dr. Mcdonald I agree with the History, Examination, Assessment and Plan documented above with any addition or exceptions noted below - Patient feeling a little better. Has been weaned to nasal canula. Afebrile VSS. A/P: 1) Acute resp failure secondary to COVID pneumonia - continue to monitor resp status and wean O2 as tolerated. 2) Protein-calorie malnutrition - started on PPN along with oral diet to meet nutritional needs.
[2020-02-12] MEDS: Polyethylene Glycol 3350 17 GM Packet PO SCH (07:57)
[2020-02-12] MEDS: Enoxaparin Sodium 40 MG/0.4 ML SYRINGE SC SCH (07:57)
[2020-02-12] MEDS: levETIRAcetam 500 MG TAB PO SCH ×2 (07:58→20:16)
[2020-02-12] MEDS: Famotidine 20 MG TAB PO SCH ×2 (07:59→20:14)
[2020-02-12] MEDS: Acetaminophen 325 MG TAB PO PRN ×2 (11:41→20:16)
[2020-02-12] MEDS: Mirtazapine 15 MG TAB PO SCH (20:14)
[2020-02-12] MEDS: Tamsulosin HCl 0.4 MG CAP PO SCH (20:15)
[2020-02-12] MEDS: Atorvastatin Calcium 20 MG TAB PO SCH (20:15)
[2020-02-12] MEDS: Dexamethasone 4 MG TAB PO SCH (20:15)
[2020-02-12] MEDS: Digoxin 0.125 MG TAB PO SCH (20:16)
[2020-02-12] MEDS: Melatonin 3 MG TAB PO PRN (20:18)
[2020-02-13] MEDS: Acetaminophen 325 MG TAB PO PRN (06:22)
--- NOTE | 2020-02-13 07:01 | PDOC.FM ---
- Subjective Subjective: Patient doing okay this morning. Continues to do well with weaning oxygen. - Objective Vital Signs & Weight: Vital Signs (12 hours) Temp Pulse Resp BP BP BP Pulse Ox 02/13/20 05:09 99.1 F 84 22 H 110/68 94 L 02/13/20 03:11 92 L 02/12/20 23:51 98.4 F 72 22 H 118/76 94 L 02/12/20 21:20 98.2 F 80 24 H 114/59 L 92 L 02/12/20 19:51 98.4 F 102 H 28 H 133/80 92 L Weight Admit Weight 65.726 kg Weight 70.216 kg I&O: 02/12/20 02/13/20 02/14/20 06:59 06:59 06:59 Intake Total 2233 3134 Balance 2233 3134 Result Diagrams: 02/13/20 08:53 02/13/20 08:53 Phys Exam - Physical Examination Constitutional: NAD HEENT: moist MMs Neck: supple, full ROM Respiratory: no wheezing, clear to auscultation bilateral Cardiovascular: irregular atrial fibrillation Gastrointestinal: soft, no distention Musculoskeletal: no edema, pulses present Neurological: non-focal, moves all 4 limbs Psychiatric: normal affect Skin: no rash Dx/Plan (1) Acute respiratory failure with hypoxia Code(s): J96.01 - ACUTE RESPIRATORY FAILURE WITH HYPOXIA Status: Acute (2) Pneumonia due to COVID-19 virus Code(s): U07.1 - COVID-19; J12.89 - OTHER VIRAL PNEUMONIA Status: Acute (3) Anxiety Code(s): F41.9 - ANXIETY DISORDER, UNSPECIFIED Status: Acute (4) Atrial fibrillation Code(s): I48.91 - UNSPECIFIED ATRIAL FIBRILLATION Status: Acute (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 Pt is not safe at home if she does not have help. 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 [facility] has accepted patient pending his discharge. - consult Palliative - pt wants to be full code after discussion on 02/04 - consult PT/OT - recommend SNF vs rehab. Continue therapy #Delirium Poor Vision - Re-orient, Control back pain. Melatonin at HS. - Patient talking with his appears to help with his delirium #Chronic L1 Compression Fracture - Tylenol and heating pad ordered. #Seizures - Continue keppra #BPH - Continue flomax #A-Fib - Continue metoprolol, digoxin. #HLD - Continue atrovastatin #MDD - Continue sertraline, increased to 100mg 02/09 DVT ppx: lovenox Code Status: Full Addendum - Attending - Attending Attestation Date/Time: 02/13/20 [id number] I personally evaluated the patient and discussed the management with Dr. Mcdonald I agree with the History, Examination, Assessment and Plan documented above with any addition or exceptions noted below - Patient without complaints. Afebrile VSS. A/P: 1) Acute resp failure secondary to COVID pneumonia - improving slowly. Tolerating NC @6L. Continue to wean as tolerated. Inflammatory markers downtrending. Continue PT.
[2020-02-13] MEDS: D5W-AA 4.25% with LYTES 1,000 ML IV SCH (09:22)
[2020-02-13] MEDS: Enoxaparin Sodium 40 MG/0.4 ML SYRINGE SC SCH (09:23)
[2020-02-13] MEDS: levETIRAcetam 500 MG TAB PO SCH ×2 (09:24→19:47)
[2020-02-13] MEDS: Famotidine 20 MG TAB PO SCH ×2 (09:24→19:46)
[2020-02-13] MEDS: Polyethylene Glycol 3350 17 GM Packet PO SCH (09:27)
[2020-02-13 09:35] LABS: #Lymphocytes 0.9 thou/uL (1.20-3.40); #Monocytes 0.4 thou/uL (0.11-0.59); #Neutrophils 9.7 thou/uL (1.40-6.50); %Basophils 0.1 % (0.0-1.0); %Eosinophils 0.2 % (0.0-10.0); %Lymphocytes 7.7 % (21.0-51.0); %Monocytes 3.7 % (0.0-10.0); %Neutrophils 88.3 % (42.0-75.0); Hemoglobin 12.9 g/dL (14.0-18.0); Mean Corpuscular HGB CONC 33.5 g/dL (32.0-36.0); Mean Corpuscular Hemoglobin 29.3 pg (27.0-31.0); Mean Corpuscular Volume 87.4 fL (78.0-98.0); Mean Platelet Volume 7.5 fL (7.4-10.4); Platelet Count 325 thou/uL (130-400); RBC Distribution Width 12.9 % (11.5-14.5); Red Blood Cell (RBC) Count 4.39 mill/uL (4.70-6.10)
[2020-02-13 09:46] LABS: ALT (SGPT) 77 U/L (8-55); AST (SGOT) 50 U/L (5-34); Albumin 2.4 g/dL (3.4-4.8); Alkaline Phosphatase 101 U/L (40-110); Anion Gap 14 mmol/L (10-20); BUN (Urea Nitrogen) 33 mg/dL (8.4-25.7); Bilirubin, Total 0.4 mg/dL (0.2-1.2); CRP (Inflammatory) 4.18 mg/dL (= or < 0.5); Calc. Creatinine Clearance 82 mL/min (70-130); Calcium 8.7 mg/dL (7.8-10.44); Carbon Dioxide 26 mmol/L (23-31); Chloride 97 mmol/L (98-107); Estimated GFR-MDRD Greater than 90; Globulin 3.5 g/dL (2.4-3.5); Glucose 122 mg/dL (83-110); Potassium 4.7 mmol/L (3.5-5.1); Protein, Total 5.9 g/dL (5.8-8.1); Sodium 132 mmol/L (136-145)
[2020-02-13 12:48] VITALS: BMI 22.1
--- NOTE | 2020-02-13 14:22 | PQF ---
CLINICAL DOCUMENTATION CLARIFICATION FORM: Dear Dr. Mcdonald/ Attending Dr. Smith Date: 02/13/2020 Please exercise your independent, professional judgment in responding to the clarification form. Clinical indicators are provided on the bottom of this form for your review. Please check appropriate box(es): [ ] Mild Protein Calorie Malnutrition [ ] Moderate Protein Calorie Malnutrition [x] Severe Protein Calorie Malnutrition [ ] Other diagnosis [ ] Unable to determine In addition, please specify: Present on Admission (POA): [x] Yes [ ] No [ ] Unable to determine For continuity of documentation, please document condition throughout progress notes and discharge summary. Thank You. 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 *02/10 pn (Harry/ Donovan Smith) Attending: Protein-calorie malnutrition - only eating one meal per day and 1 ensure. Not sufficient intake for needs. RISK FACTORS / RESULTS AND LOCATION IN MR *01/30 pn (Saima) Dx/ Plan: Seizure disorder. Atrial fib. MDD. 75 yo recently with COVID who presents after a fall. *02/10 pn (Harry/ Donovan Smith) Protein-calorie malnutrition Not sufficient intake for needs. TREATMENT / RESULTS AND LOCATION IN MR 02/06 Order for Supplement: Ensure Enlive TID after meals 02/11 pn (Donovan Smith) started on PPN along with oral diet to meet nutritional needs Moderate Malnutrition (in acute illness) Energy Intake: <75% of estimated energy requirement for > 7 days Weight Loss: 1-2%/1 week; 5%/ 1 month; 7.5%/3 months Other: mild body fat loss; mild muscle mass loss; mild fluid accumulation; Severe Malnutrition (in acute illness) Energy Intake: = 50% of estimated energy requirement for = 5 days Weight Loss: >2%/1 week; >5%/1 month; >7.5%/3 months Other: moderate body fat loss; moderate muscle mass loss; moderate- severe fluid accumulation; measurably reduced integration consultant strength Moderate Malnutrition (in chronic illness) Energy Intake: <75% of estimated energy requirement for =1 month Weight Loss: 5%/1 month; 7.5%/3 months; 10%/6 months; 20%/1 year Other: mild body fat loss; mild muscle mass loss; mild fluid accumulation Severe Malnutrition (in chronic illness) Energy Intake: =75% of estimated energy requirement for =1 month Weight Loss: >5%/1 month; >7.5%/3 months; >10%/6 months; >20%/1 year Other: severe body fat loss; severe muscle mass loss; severe fluid accumulation; measurably reduced integration consultant strength Thank you, Angelic Thakkar RN, BSN [email or web address] This is a permanent part of the Medical Record MTDD
[2020-02-13] MEDS: Dexamethasone 4 MG TAB PO SCH (19:46)
[2020-02-13] MEDS: Atorvastatin Calcium 20 MG TAB PO SCH (19:46)
[2020-02-13] MEDS: Digoxin 0.125 MG TAB PO SCH (19:46)
[2020-02-13] MEDS: Mirtazapine 15 MG TAB PO SCH (19:47)
[2020-02-13] MEDS: Tamsulosin HCl 0.4 MG CAP PO SCH (19:48)
--- NOTE | 2020-02-14 06:04 | PDOC.FM ---
- Subjective Subjective: Patient doing well this morning; resting comfortably. - Objective Vital Signs & Weight: Vital Signs (12 hours) Temp Pulse Resp BP BP BP Pulse Ox 02/14/20 05:22 97 02/14/20 04:30 98.0 F 78 20 119/87 97 02/14/20 00:05 97.5 F L 63 20 114/57 L 96 02/13/20 19:46 72 02/13/20 19:20 98.3 F 60 20 114/62 96 Weight Admit Weight 65.726 kg Weight 70.216 kg I&O: 02/12/20 02/13/20 02/14/20 06:59 06:59 06:59 Intake Total 2233 3134 680 Balance 2233 3135 680 Result Diagrams: 02/13/20 08:53 02/13/20 08:53 Phys Exam - Physical Examination Constitutional: NAD HEENT: moist MMs Neck: full ROM Respiratory: clear to auscultation bilateral Cardiovascular: irregular atrial fibrillation Gastrointestinal: soft, no distention Musculoskeletal: no edema, pulses present Neurological: moves all 4 limbs Psychiatric: normal affect Skin: no rash Dx/Plan (1) Acute respiratory failure with hypoxia Code(s): J96.01 - ACUTE RESPIRATORY FAILURE WITH HYPOXIA Status: Acute (2) Pneumonia due to COVID-19 virus Code(s): U07.1 - COVID-19; J12.89 - OTHER VIRAL PNEUMONIA Status: Acute (3) Anxiety Code(s): F41.9 - ANXIETY DISORDER, UNSPECIFIED Status: Acute (4) Atrial fibrillation Code(s): I48.91 - UNSPECIFIED ATRIAL FIBRILLATION Status: Acute (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 Pt is not safe at home if she does not have help. 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 [facility] has accepted patient pending his discharge. - consult Palliative - pt wants to be full code after discussion on 02/04 - consult PT/OT - recommend SNF vs rehab. Continue therapy #Delirium Poor Vision - Re-orient, Control back pain. Melatonin at HS. - Patient talking with his appears to help with his delirium #Chronic L1 Compression Fracture - Tylenol and heating pad ordered. #Seizures - Continue keppra #BPH - Continue flomax #A-Fib - Continue metoprolol, digoxin. #HLD - Continue atrovastatin #MDD - Continue sertraline, increased to 100mg 02/09 DVT ppx: lovenox Code Status: Full Dispo: possible discharge home today with and home O2 Addendum - Attending - Attending Attestation Date/Time: 02/14/20 [id number] I personally evaluated the patient and discussed the management with Dr. Mcdonald I agree with the History, Examination, Assessment and Plan documented above with any addition or exceptions noted below - Patient without complaints. Afebrile VSS. A/P: 1) Acute resp failure secondary to COVID pneumonia - improving. O2 weaned to 4L last night and tolerating well. Plan to d/c home today.
[2020-02-14] MEDS: Famotidine 20 MG TAB PO SCH (09:10)
[2020-02-14] MEDS: levETIRAcetam 500 MG TAB PO SCH (09:10)
[2020-02-14] MEDS: Polyethylene Glycol 3350 17 GM Packet PO SCH (09:10)
[2020-02-14] MEDS: Enoxaparin Sodium 40 MG/0.4 ML SYRINGE SC SCH (09:10)
--- NOTE | 2020-02-14 10:38 | PDOC.PALPN ---
Palliative Progress Note - Subjective Awake, lethargic. Pronounced weakness, drifts to sleep during assessment/visit. Difficult to have cooperation in review of systems - Objective Vital Signs: Vital Signs - Most Recent Temp Pulse Resp BP Pulse Ox 98 F 69 18 114/61 94 L 02/14/20 09:00 02/14/20 09:00 02/14/20 09:00 02/14/20 09:00 02/14/20 09:00 - Physical Exam Constitutional: cachectic, ill appearing HEENT: EOMI, moist MMs, sclera anicteric Respiratory: no rales, no rhonchi, no wheezing, unlabored breathing Deviation from normal: O2 dependent Cardiovascular: irregular Gastrointestinal: non-tender, no distention, positive bowel sounds, incontinent Genitourinary: incontinent Musculoskeletal: no cyanosis, no clubbing, diffuse muscle atrophy, muscle wasting Neurology: moves all 4 limbs, no focal deficits Skin: cap refill <2 seconds, friable Psychiatric: flat affect - Assessment (1) Palliative care encounter Code(s): Z51.5 - ENCOUNTER FOR PALLIATIVE CARE Current Visit: Yes Status: Acute (2) Acute respiratory failure with hypoxia Code(s): J96.01 - ACUTE RESPIRATORY FAILURE WITH HYPOXIA Current Visit: Yes Status: Acute (3) Pneumonia due to COVID-19 virus Code(s): U07.1 - COVID-19; J12.89 - OTHER VIRAL PNEUMONIA Current Visit: Yes Status: Acute (4) Atrial fibrillation Code(s): I48.91 - UNSPECIFIED ATRIAL FIBRILLATION Current Visit: No Status: Acute (5) Generalized weakness Code(s): R53.1 - WEAKNESS Current Visit: No Status: Acute - Plan Plan: not receptive to discharge with hospice. Concern is transition to homesetting and supportive care related to patient declining functional status and total assist with ADL's. Incontinent. Patient has had less than optimal intake as he is eating aprox 50% of meals and snacks. Refusing PT 02/13/2020 [facility] has accepted patient. Palliative Care will attempt one more conversation with patient , declining functional status and options should he continue to decline as his Goal of Care is to remain in the home setting. Full resuscitation measures Please refer to Palliative Care notes in note section. Palliative Care will sign off, please re consult if we can assist in the future with readdressing Goal of Care, complex decision making, prognosis disease assist, symptom management, or directive discussion. [40] minutes spent on this encounter with >50% of the time in counseling and coordination of care. - ROS Constitutional: alert, weakness ENT: other (Negative for difficulity in swallowing, throat irritation) Cardiology: other (Negative for palpitations) Gastrointestinal: other (denies nausea)
[2020-02-14 16:48] VITALS: TEMP 98.2
[2020-02-14 18:18] VITALS: BP 122/58
--- NOTE | 2020-02-15 08:12 | DIS ---
DATE OF ADMISSION: 01/30/2020 DATE OF DISCHARGE: 02/14/2020 RESIDENT: Soumya Mcdonald MD. ADMITTING ATTENDING: Dillan Romero MD DISCHARGE ATTENDING: Radha Smith MD. CONSULTS: Case Management, PT, and OT. PROCEDURES: 1 unit convalescent plasma. PRIMARY DIAGNOSES: Acute hypoxic respiratory failure with COVID pneumonia, recurrent falls, delirium. SECONDARY DIAGNOSES: Chronic L1 compression fracture, seizures, BPH, atrial fibrillation, hyperlipidemia, major depressive disorder. DISCHARGE MEDICATIONS: 1. Decadron 3 mg p.o. daily x7 days. 2. Decadron 2 mg p.o. daily x7 days. 3. Decadron 1 mg p.o. daily x7 days. 4. Decadron 0.5 mg p.o. daily x7 days. 5. Tamsulosin 0.4 mg p.o. at bedtime. 6. Famotidine 20 mg p.o. b.i.d. 7. Mirtazapine 7.5 mg p.o. at bedtime. 8. Metoprolol succinate 100 mg p.o. daily. 9. Sertraline 100 mg p.o. daily. 10. Tylenol p.r.n. 11. Digoxin 0.125 p.o. at bedtime. 12. Keppra 1000 mg p.o. b.i.d. Discontinued medications: 1. Decadron 6 mg p.o. qd. 2. Melatonin 10 p.o. at bedtime p.r.n. 3. MiraLAX p.o. daily. 4. Zofran p.r.n. HISTORY OF PRESENT ILLNESS/HOSPITAL COURSE: The patient is a 75-year-old male who presented to the emergency department after a fall from tripping over his walker. He had multiple falls within the last month and his primary care provider was concerned about his well being at home and his takes care of both him and the [id number] on her own. The patient's vision and hearing impaired. He was admitted initially for recurrent falls, for which palliative, case management, and PT and OT to be consulted. At the initial admission, the patient was not in any sort of respiratory stress, but he did test positive for COVID. Throughout the patient's hospital stay, the patient did require oxygen both via nasal cannula and eventually high-flow nasal cannula, for which he was then able to wean down to 3 to 4 L to maintain his oxygen saturations greater than 92%. Convalescent plasma was administered on February 03. The patient had decline in his appetite and p.o. intake and was provided with PPN nutrition for a few days during his hospital stay. Case Management did consult as well as Palliative Care and the patient's was adamant that she did not want placement for the patient, but did admit that she needs help at home and due to this, requests were made for home health to be organized for the patient at home. Throughout the hospitalization, the patient did have episodes of delirium, which he was able to recover from with reorientation and discussions with his . He was started on sertraline and mirtazapine, which seemed to help this. On the day of discharge, it was ensured that the patient would have oxygen to be able to go home with as well as home health set up on an outpatient basis. The patient was deemed to be stable for discharge home with home health. DISPOSITION: Stable. DISCHARGE INSTRUCTIONS: 1. Location: Home with home health and home PT. 2. Diet: Regular. 3. Activity: Ambulate with assist. 4. Follow up with PCP within 7 days and with home health at home on discharge. Job ID: [id number] [facility] SYSTEMJessica
--- NOTE | 2020-02-16 11:42 | EKG ---
Test Reason : TACHY Blood Pressure : / mmHG Vent. Rate : 074 BPM Atrial Rate : 092 BPM P-R Int : 000 ms QRS Dur : 090 ms QT Int : 364 ms P-R-T Axes : 000 006 014 degrees QTc Int : 404 ms Atrial fibrillation Abnormal ECG Confirmed by BLAS WALTER M.D. ([id number]), newspaper editor managing AUSTIN PRESCOTT ([id number]) on 02/16/2020 11:41:30 AM Referred By: PETER Confirmed By:BLAS WALTER M.D.
== END 2020-02-14 18:53 | disposition home health service (06) | DRG 177 ==
LOC: ERS 17:20 → 2SW 23:41 → ERS 01-31 01:25
PROVIDERS: ADMIT Internal Medicine; ATTEND Student in an Organized Health Care Education/Training Program
PROC: 8E0ZXY6 Isolation (ICD-10-PCS; 2020-01-31)
PROC: XW13325 Transfusion of Convalescent Plasma (Nonautologous) into Peripheral Vein, Percutaneous Approach, New Technology Group 5 (ICD-10-PCS; principal; 2020-02-04)
DX: U07.1 COVID-19 (principal); J12.89 Other viral pneumonia; J96.01 Acute respiratory failure with hypoxia; E43 Unspecified severe protein-calorie malnutrition; M48.56XA Collapsed vertebra, not elsewhere classified, lumbar region, initial encounter for fracture; F05 Delirium due to known physiological condition; R64 Cachexia; F12.10 Cannabis abuse, uncomplicated; G40.909 Epilepsy, unspecified, not intractable, without status epilepticus; I48.91 Unspecified atrial fibrillation; H54.8 Legal blindness, as defined in USA; N40.0 Benign prostatic hyperplasia without lower urinary tract symptoms; R29.6 Repeated falls; F32.9 Major depressive disorder, single episode, unspecified; E78.5 Hyperlipidemia, unspecified; F41.9 Anxiety disorder, unspecified; M19.90 Unspecified osteoarthritis, unspecified site; Z85.828 Personal history of other malignant neoplasm of skin; Z68.22 Body mass index [BMI] 22.0-22.9, adult; Z79.899 Other long term (current) drug therapy; Z86.73 Personal history of transient ischemic attack (TIA), and cerebral infarction without residual deficits
CPT/HCPCS: 36415; 36430; 71045; 72100; 80048; 80053; 81003; 81015; 82550; 82728; 83615; 83735; 84145; 84484; 85025; 85379; 85610; 85730; 86140; 86850; 86900; 86901; 87040; 93005; 94760; 96365; J0696; J1100; J1650; J3490; J8540; P9017